=== PATIENT | female | born 1965 | race Caucasian/White ===

== ENCOUNTER 2018-05-05 06:13 | Day surgery (SDC) | payer OTHER, SELFPAY ==
[2018-05-05 06:28] VITALS: BP 135/95; PULSE 68; RESP 18; TEMP 37.1; O2SAT 100
[2018-05-05] MEDS: Lactated Ringers 1,000 ML 80 ML IV (06:47)
--- NOTE | 2018-05-05 07:28 | W.PM.DSUDISC ---
Discharge Plan Disposition Patient Disposition: HOME Condition: Good Discharge Details Reason For Visit: (L) LATERAL EPICONDYLITIS Attending Provider: Tarik Chacon Primary Care Provider: Kaushik Sosa Home Meds and New Rx's Prescriptions: New acetaminophen 500 mg capsule 1,000 mg PO Q8H PRN (Reason: pain) Qty: 90 RF: 0 Continue omeprazole 40 MG capsule,delayed release(DR/EC) 40 mg PO DAILY RF: 0 medroxyprogesterone 150 MG/ML suspension 150 mg IM . Q 3 MOS RF: 0 ferrous sulfate 325 MG tablet 325 mg PO DAILY RF: 0 ibuprofen 800 mg Tablet 800 mg PO TID PRNQty: 60 RF: 3 Discontinued acetaminophen [Tylenol] 325 MG tablet 650 mg PRN PRNRF: 0 Discharge Instructions Additional Instructions: Activity: You may use your fingers for light activity. You should stay in the sling for comfort, resting the wrist and elbow. You may take the sling off as long as the elbow and wrist are supported. No gripping or grasping. No lifting more than 3 pounds. Dressings: You may remove the surgical dressing after 3 days. You may apply a light gauze wrap or band-aid to the wound. The wound is closed with skin glue and buried sutures. It may get wet after 3 days. Follow-up: 10 days Equipment/Supplies: Sling Activity:: Elevate Remove Dressings/Wound Care:: 72 hours Shower/Bathe:: 72 hours Discharge Orders Discharge Orders: Discharge Order (Routine); Ordered 05/05/18 Ordered By: Tarik Chacon DS: Diagnosis Discharge Diagnosis (1) Left lateral epicondylitis: Status: Acute
[2018-05-05] MEDS: Bupivacaine 0.25% Pres-Free 30 ML VIAL (08:01)
[2018-05-05] MEDS: Bupivacaine LIPOSOME/PF 133 MG/10 ML VIAL IJ (08:06)
[2018-05-05 08:45] VITALS: BP 144/97; PULSE 64; RESP 16; O2SAT 99
--- NOTE | 2018-05-06 21:16 | ROE_ITS ---
Date of service: 05/05/18 Time of Service: 08:30 Operative Note DATE OF PROCEDURE: 05/05/18 PRE-OP DIAGNOSIS: Left lateral epicondylitis POST-OP DIAGNOSIS: same PROCEDURE: Lateral epicondylitis debridement, left elbow SURGEON: Tarik Chacon MORTGAGE LOAN PROCESSING CLERK: Marlene Mcclain ANESTHESIA: MAC ESTIMATED BLOOD LOSS: 5 PATHOLOGY: none sent TOURNIQUET TIME: 20 COMPLICATIONS: None Patient was transported to: same day Patient's condition: stable Indications: Gypsy is a 52-year-old who has had persistent symptoms of lateral epicondylitis left elbow. She has exhausted nonoperative treatments. She has had symptoms for nearly a year. Given the failure of these modalities I did offer operative intervention. I reviewed the risk of the procedure to include bleeding, infection, pain, stiffness, continued symptoms, ankle instability, damage to nerves and vessels. Despite these risks, she elected to proceed. Procedure Description: Gypsy was greeted in the preoperative holding area. Her identity was confirmed the correct site was identified and marked. She is taken back to the operating room and placed in supine position. All bony problems well padded. Nonsterile tourniquet was placed high on the left arm. Left arm was prepped with ChloraPrep and draped in standard fashion. Prophylactic antibiotics in the form of cefazolin were given. A timeout was performed for safe surgery. Approximately 5 cm incision was made over the lateral left elbow. This was made just anterior to the lateral condyle and the course of the extensor carpi radialis longus. The arm was exsanguinated prior to proceeding with the tourniquet inflated to 250 mmHg stayed for 20 minutes. Skin incision was taken down to the deep fascia. Blunt dissection was used to clear off the deep fascia exposing the border of the extensor carpi radialis longus tendon and muscle belly. The tendon was incised up onto the lateral condyle and the distal , lateral humerus. The tendon and the extensor carpi ulnaris longus, extensor aponeurosis, was opened exposing the underlying extensor carpi radialis brevis. He was here that the degenerative and fiber angioblastic tissue is seen. All diseased tissue was removed using the Nirschl test as well as a running drawer. With the combination of running jewelry and sharp dissection all diseased tissue was removed. The wound was then thoroughly irrigated. There is no other diseased tissue appreciated. The elbow was checked for appropriate stability and no joint involvement. The interval of the extensor carpi ulnaris longus was then closed with a 2-0 Vicryl. The tourniquet was released after 20 minutes to ensure adequate hemostasis. Deep tissues were closed with a 3-0 Vicryl. The skin was closed with a running 4-0 Monocryl. The skin was reinforced with skin glue and dressed with 4 x 4's, Kerlix, and Gianni wrap. She is placed into a sling. She tolerated procedure well without any noted complications.
== END 2018-05-05 09:10 | disposition home or self-care (01) ==
PROVIDERS: PCP Family Medicine; Visit Provider Student in an Organized Health Care Education/Training Program
PROC: (CPT 24358; principal; 2018-05-05 07:30)
DX: M77.12 Lateral epicondylitis, left elbow (principal); K21.9 Gastro-esophageal reflux disease without esophagitis
CPT/HCPCS: 24358; J0690; J1100; J1885; J2405; L3650

== ENCOUNTER 2019-04-18 08:06 | Day surgery (SDC) | payer OTHER, SELFPAY ==
[2019-04-18] VITALS (7 sets, daily range): BP systolic 100–159; BP diastolic 66–96; PULSE 60–75; RESP 11–16; TEMP 36.2–36.6; O2SAT 97–100
[2019-04-18] MEDS: Lactated Ringers 1,000 ML 80 ML IV (08:38)
[2019-04-18] MEDS: ceFAZolin 2 GM/50 ML BAG IVPB (09:32)
--- NOTE | 2019-04-18 10:39 | W.PM.DSUDISC ---
Discharge Plan Disposition Patient Disposition: HOME Condition: Good Discharge Details Reason For Visit: Left Cubital Tunnel Syndrome Attending Provider: Tarik Chacon Primary Care Provider: Kaushik Sosa Oil Trough Meds and New Rx's Prescriptions: New hydrocodone-acetaminophen 5-325 mg tablet 1 tab PO Q4H PRN (Reason: pain) Qty: 14 RF: 0 Continued omeprazole 40 MG capsule,delayed release(DR/EC) 40 mg PO DAILY RF: 0 ibuprofen 800 mg tablet 800 mg PO TID PRN (Reason: pain) Qty: 60 RF: 3 Changed acetaminophen 500 mg capsule 500 mg PO Q6H PRN PRN (Reason: pain) Qty: 60 RF: 3 Discharge Instructions Additional Instructions: Activity: You should stay in the sling for the first 2 weeks. You may come out of the sling for gentle motion and hygiene but should largely remain in the sling to allow the incision site to heal. Gentle motion of the elbow, hand, wrist, and fingers is okay and encouraged after the first few days, but no repetitive activites nor heavy lifting. You may apply ice. Medications: - You should take Tylenol and Ibuprofen around the clock. - You have been prescribed Hydrocodone for breakthrough pain. Dressings: - The initial surgical dressing should stay in place for 3 days. It may then be removed and kept clean and dry. You should cover with a light gauze dressing. - You may shower after 3 days and get the wound wet. Follow-up: 10 days Referrals: Tarik Chacon MD [ [facility] STAFF PHYSICIAN] - Equipment/Supplies: Sling Activity:: Activity as Tolerated Remove Dressings/Wound Care:: 72 hours Shower/Bathe:: 72 hours Diet:: As Tolerated Discharge Orders Discharge Orders: Discharge Order (Routine); Ordered 04/18/19 Ordered By: Tarik Chacon DS: Diagnosis Discharge Diagnosis (1) Ulnar neuropathy at elbow of left upper extremity: Status: Acute
--- NOTE | 2019-04-18 13:28 | W.PM.OP ---
Date of service: 04/18/19 Time of Service: 11:29 Operative Note DATE OF PROCEDURE: 04/18/19 PRE-OP DIAGNOSIS: Left Cubital Tunnel Syndrome POST-OP DIAGNOSIS: same PROCEDURE: Left Cubital Tunnel Decompression SURGEON: Tarik Chacon INTERNET MERCHANT: Marlene Mcclain ANESTHESIA: GETA ESTIMATED BLOOD LOSS: 0 PATHOLOGY: none sent TOURNIQUET TIME: 14 COMPLICATIONS: None Patient was transported to: PACU Patient's condition: stable Indications: Jessy is a 53-year-old female who has had symptoms of cubital tunnel syndrome. Nonoperative treatment options had been trialed. Nerve conduction studies identified the cubital tunnel as the point of compression. Given failure of nonoperative treatments and persistent symptoms, I offered operative intervention. I reviewed the technical details of a cubital tunnel decompression with possible anterior subcutaneous transposition. I reviewed the risk of the procedure to include bleeding, infection, pain, stiffness, tendon instability, damage to the superficial radial nerve, and complete release. Despite these risks, the patient elected to proceed. Findings: There was a tightened cubital tunnel. The majority of the compression seem to be at Edwards's ligament. The ulnar nerve was release from the first motor branch distally through the [place] proximally. Procedure Description: Jessy was greeted in the preoperative holding area. Name and surgical site were confirmed. The history and physical was completed. The consent was reviewed the patient and signed. She was taken back to the operating room. The patient was placed in the supine positioned and a general anesthetic was administered. The left was then prepped with ChloraPrep and draped in a standard fashion after a nonsterile tourniquet was placed high up into the axilla of the arm. Prophylactic antibiotics in the form of cefazolin were administered. A timeout was performed for safe surgery. The surgical site was drawn on the skin as was the lateral epicondyle borders. The planned surgical field was anesthetized with 0.25% bupivacaine with epinephrine. The limb was exsanguinated and the tourniquet was inflated where it stayed for 14 minutes. A 6 cm incision was made curvilinearly around the medial elbow. The skin was incised only. The deep tissue subcutaneous fat was dissected with a tenotomy scissors trying to protect any branches of the medial antebrachial cutaneous nerve. Any branches that were identified were retracted out of the way. The ulnar nerve was palpated and identified. A small window into the cubital tunnel was created and the nerve is able to be palpated with the [place]. A Metzenbaum scissor was then used to open up the she is starting with the Edwards's ligament. I then worked distal over the ulnar nerve releasing any constraints against the nerve all the way to the fascia of the FCU muscle belly. This muscle belly was bluntly all the way down to the first motor branch of the ulnar nerve. Likewise starting there at the lateral condyle proceeded working proximally to release any constraints over the ulnar nerve. This was taken all the way to the arc[place] of [place]. The medial intermuscular septum was also palpated in any sharp edges against the ulnar nerve were resected. After fully releasing the nerve it was inspected visually. I was also able to palpate the nerve fully and reach one finger up into the proximal distal aspects to make sure there is no constraints against the nerve. A freer elevator was also used to slide easily against the ulnar nerve without any points of constriction. The arm was then taken through range of motion. The ulnar nerve did not sublux/dislocate out of its groove behind the lateral epicondyle. Therefore, no transposition was performed. The tourniquet was then deflated. Any areas of bleeding were cauterized with bipolar electrocautery. The wound was thoroughly irrigated. The deep tissue was closed with a 3-0 Vicryl. The skin was closed with a 4-0 nylon. The wound was dressed with Xeroform, 4 x 4's, ABD, Kerlix and an Gianni wrap. She was placed into a sling. The patient was transferred back to same day surgery area in stable condition.
== END 2019-04-18 12:20 | disposition home or self-care (01) ==
PROVIDERS: PCP Family Medicine; Visit Provider Student in an Organized Health Care Education/Training Program
PROC: (CPT 64718; principal; 2019-04-18 10:30)
DX: G56.22 Lesion of ulnar nerve, left upper limb (principal)
CPT/HCPCS: 64718; 81025; J0690; J1100; J2405; L3650

== ENCOUNTER 2019-12-15 09:02 | Outpatient (CLI) | payer OTHER, SELFPAY ==
--- NOTE | 2019-12-15 08:45 | DI.RAD_ITS ---
EXAM: XR ELBOW LT COMPLETE CLINICAL HISTORY: left elbow pain TECHNIQUE: COMPARISON: LEFT ELBOW COMPLETE from 05/02/2017 FINDINGS: Three views were obtained. There is no evidence of an elbow joint effusion or hemarthrosis. No bony abnormality is seen. IMPRESSION:
== END 2019-12-15 09:22 ==
PROVIDERS: PCP Family Medicine; Visit Provider Physician Assistant Surgical
DX: M25.522 Pain in left elbow (principal)
CPT/HCPCS: 73080

== ENCOUNTER 2020-03-09 12:24 | Emergency (ER) | payer OTHER, SELFPAY ==
[2020-03-09 12:31] VITALS: BP 155/90; PULSE 90; RESP 16; TEMP 36.8; O2SAT 97
--- NOTE | 2020-03-09 13:04 | W.ED.GENAD ---
Discharge Plan Disposition Patient Disposition: HOME Condition: Stable Discharge Details Chief Complaint: Nk/Back Pain Clinical Impression: Lumbar strain Primary Care Provider: Kaushik Sosa ED Provider: Caity Chavez Home Meds and New Rx's Prescriptions: New cyclobenzaprine 10 mg tablet 10 mg PO TID PRN (Reason: muscle spasm) Qty: 10 RF: 0 Discharge Instructions Instructions: Low Back Strain (ED) Additional Instructions: Follow up with primary care provider in 3-5 days. Return to ED sooner if any worsening or concerns. Increase oral fluids. Please take Tylenol or Ibuprofen with food every 4-6 hours as needed for pain and swelling. You may also take lidocaine patches and place him once a day which he can obtain [id number]. Take prescription medications as directed. 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 She does work at the rehab across the street. She reports spasm type pain and does have some left paraspinous tenderness noted at the approximately L5 dill 4 area. She reports it mild in nature. She denies any loss of bowel or bladder control, denies any radiation into her buttocks or in her lower extremities no weakness tingling. Upon initial exam there is no midline CT or L-spine tenderness. Negative straight leg test bilaterally. No history of back injuries or back surgeries At this time I do not feel that x-rays or imaging is necessary since patient did not fall down. No midline spine tenderness. Lidocaine patch and Tylenol 500 mg ordered in department. Will prescribe patient Flexeril discussed use, verbalized understanding discussed red flags and strict return instructions such as loss of bowel or bladder control any worsening pain or tenderness, verbalized understanding. HPI General Mode of arrival: ambulatory. Date/Time Provider Initiated Documentation: 03/09/20 13:03. Limitations to Documentation: no limitations. Information obtained by: patient. 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 She does work at the rehab across the street. She reports spasm type pain and does have some left paraspinous tenderness noted at the approximately L5 dill 4 area. She reports it mild in nature. She denies any loss of bowel or bladder control, denies any radiation into her buttocks or in her lower extremities no weakness tingling. Upon initial exam there is no midline CT or L-spine tenderness. Negative straight leg test bilaterally. No history of back injuries or back surgeries. Related Data Home Medications Medication Instructions Recorded Confirmed cyclobenzaprine 10 mg PO TID PRN #10 tab 03/09/20 Previous Rx's Medication Instructions Recorded cyclobenzaprine 10 mg PO TID PRN #10 tab 03/09/20 Allergies Allergy/AdvReac Type Severity Reaction Status Date / Time Penicillins Allergy Anaphylaxsi Unverified 03/09/20 12:34 s sulfamethoxazole Allergy FACIAL Verified 03/09/20 12:34 [From Bactrim] SWELLING, ERYTHEMA trimethoprim [From Bactrim] Allergy Anaphylaxsi Verified 03/09/20 12:34 s General Stated Complaint: Nk/Back Pain ITALIA: 4 Review of Systems Narrative: Constitutional: Negative for weight loss, alert and oriented, well groomed, normal body habitus, appears comfortable. HEENT: Denies trauma, headaches, blurry vision, nasal discharge, sore throat, trouble swallowing. Chest: Denies chest pain, palpitations, irregular rhythm, hypertension. Respiratory: Denies Shortness of breath, cough, hemoptysis. GI: Denies abdominal pain, nausea, vomiting, diarrhea, constipation. : Denies dysuria, hematuria, flank pain, rectal bleeding. Neuro: Denies dizziness, blurry vision, weakness, syncope, headache or facial numbness. Hematologic: Denies easy bruising, intolerance to heat or cold, hair loss. FOR[facility]LY [facility], [facility] Medical History History of left lateral epicondylitis (Acute) left 2018 Obstruction of right fallopian tube (Acute) Peroneal tendonitis of left lower leg (Acute) Likely peroneal brevis Surgical History H/O arthroscopy of knee (Resolved) Right knee 2016 Left knee 1998 Left lateral epicondylitis (Acute) Left lateral epicondylitis debridement DOS: 05/05/18 Dr. Prohaska Ulnar neuropathy at elbow of left upper extremity (Acute 04/18/19) S/p left cubital tunnel decompression Social History Smoking/Tobacco Use Status: Former Tobacco Use Alcohol Intake: current Alcohol Intake frequency: 0-2 drinks per day Alcohol type: beer Drug use: Never Substance use type: does not use Current gender identity: female Do you feel safe at home: Yes Do you feel safe in your relationship?: Yes Exam Narrative Exam Narrative: Constitutional: Alert and oriented x3. Appears stated age. Normal body habitus. Head: Normocephalic, no trauma. Eyes: Pupils PERRLA, Red reflex noted, EOM's intact. Eyelids symmetrical without lesions, discharge, or swelling. ENT: Bilateral TM's WNL, External ear normal to inspection, no mastoid TTP, swelling, or erythema, Nasal turbinates WNL, no nasal discharge. Normal dentition, Posterior pharynx WNL, no exudate. Chest: RRR, Normal S1, S2, distal pulses intact. Resp: Lungs clear to auscultation bilaterally, no wheezes, rales, or rhonchi. Musculoskeletal: Normal gait, 5/5 strength to all four extremities. Intact dorsal pedal flexion, negative straight leg test bilaterally. No midline L-spine tenderness. There is positive left-sided paraspinous tenderness with palpation. Patient is wearing a brace noted to her left elbow and left ankle. Skin: No suspicious rashes or lesions. Capillary refill less than 2 sec. Neurologic: Cranial nerves II-XII intact. Alert and oriented x 3. DTR's intact. Hematologic/Lymphatic: No ecchymosis, no lymphadenopathy. Course Vital Signs Vital signs: Vital Signs Temperature 36.8 C 03/09/20 12:31 Pulse 90 03/09/20 12:31 Respiratory Rate 16 03/09/20 12:31 Blood Pressure 155/90 H 03/09/20 12:31 Pulse Oximetry 97 03/09/20 12:31 Temperature 36.8 C 03/09/20 12:31 Pulse 90 03/09/20 12:31 Respiratory Rate 16 03/09/20 12:31 Respiratory Effort Non-Labored 03/09/20 12:34 Blood Pressure 155/90 H 03/09/20 12:31 Blood Pressure Position Sitting 03/09/20 12:31 Pulse Oximetry 97 03/09/20 12:31 Oxygen Delivery Method Room Air 03/09/20 12:31 Oxygen Flow Rate 0 03/09/20 12:31 Pain Level 8 03/09/20 12:55
[2020-03-09] MEDS: Lidocaine 5% Patch 1 PATCH TP (13:12)
[2020-03-09] MEDS: Acetaminophen 500 MG TAB PO (13:12)
== END 2020-03-09 13:27 | disposition home or self-care (01) ==
PROVIDERS: Emergency Provider Registered Nurse Emergency; PCP Family Medicine
DX: S39.012A Strain of muscle, fascia and tendon of lower back, initial encounter (principal); X50.9XXA Other and unspecified overexertion or strenuous movements or postures, initial encounter; Y99.0 Civilian activity done for income or pay
CPT/HCPCS: 99283

== ENCOUNTER → 2022-03-06 01:26 | Outpatient (CLI) | payer OTHER, SELFPAY ==
--- OUTSIDE RECORDS SUMMARY | 2022-03-06 01:27 | XMS_ITS | Encounter Summary ---
:1965 Author Organization [facility] [place] [address] Care Team Providers Name Role Phone Hannah Sosa MD Primary Care Provider [phone] Encounter Details Date Type Department Care Team Description 08/14/2020 Office Visit Occupational Therapy at [facility], Pain in left elbow [address] [facility] [address] [place] [address] PHYSICAL MEDICINE & [place] [address] Social History Tobacco Use Types Packs/Day Years Used Date Former Smoker Cigarettes 0.5 8 Quit: 08/31/19 09 Smokeless Tobacco: Never Used Alcohol Use Standard Drinks/Week Comments Yes 0 (1 standard drink = 0.6 oz pure alcoho l) Sex Assigned at Date Recorded Not on file documented as of this encounter Miscellaneous Notes Initial Evaluation - [facility] - 08/14/2020 12:00 PM EST Please refer to scan documents for a copy of the functional capacity evaluation report. documented in this encounter Plan of Treatment Not on filedocumented as of this encounter Visit Diagnoses Diagnosis Pain in left elbow Pain in joint, upper arm documented in this encounter Care Teams Cosmetic Sales Relationship Specialty Start Date End Date Hannah Sosa MD PCP - General Family Medicine 12/15/19 documented as of this encounter
--- OUTSIDE RECORDS SUMMARY | 2022-03-06 01:28 | XMS_ITS | Clinical Summary ---
:[address] [facility] Address [address] [place] [address] Care Team Providers Name Role Phone Unknown, Provider Primary Care Provider Social History Tobacco Use Types Packs/Day Years Used Date Never Assessed Sex Assigned at Date Recorded Not on file Plan of Treatment Health Maintenance Due Date Last Done Comments Hepatitis C Screen 1965 COVID-19 Vaccine (1) 1971 Care Teams Lens Grinder Relationship Specialty Start Date End Date Unknown, Provider, PCP - General 11/05/10
--- OUTSIDE RECORDS SUMMARY | 2022-03-06 01:28 | XMS_ITS | Encounter Summary ---
:1965 Author Organization [facility] [address] Care Team Providers Name Role Phone Abe Plummer MD Primary Care Provider Encounter Details Date Type Department Care Team Description 10/07/2011 External Results XRay at [facility] Jd Steve MD [address] [place] [address] [place] [address] [place] [address] [phone] (Wo rk) Social History Tobacco Use Types Packs/Day Years Used Date Former Smoker Cigarettes 0.5 8 Quit: 08/31/19 09 Smokeless Tobacco: Never Used Alcohol Use Standard Drinks/Week Comments Yes 0 (1 standard drink = 0.6 oz pure alcoho l) Sex Assigned at Date Recorded Not on file documented as of this encounter Plan of Treatment Not on filedocumented as of this encounter Procedures Procedure Name Priority Date/Time Associated Diagnosis Comme nts MRI/MRA SCAN Routine 09/30/2011 documented in this encounter Results Scan Doc: MRI/MRA (09/30/2011) Anatomical Region Laterality Modality Other Narrative This result has an attachment that is no t available. Jd Steve MD MEDIA MGR SCAN EXT ORDR/RSLT documented in this encounter Visit Diagnoses Not on filedocumented in this encounter Care Teams [employer] Paralegal Relationship Specialty Start Date End Date Abe Plummer MD PCP - General 10/07/11 12/14/19 documented as of this encounter
--- OUTSIDE RECORDS SUMMARY | 2022-03-06 01:28 | XMS_ITS | Encounter Summary ---
:1965 Author Organization [facility] [place] [address] Care Team Providers Name Role Phone Hai Voss MD Primary Care Provider Encounter Details Date Type Department Care Team Description 07/18/2010 Office Visit [facility] Shamar Sahni MD [address] [place] [address] CARDIOLOGY DEPT. [phone] [place], [place] [address] (Wo rk) Social History Tobacco Use Types Packs/Day Years Used Date Never Assessed Sex Assigned at Date Recorded Not on file documented as of this encounter Plan of Treatment Not on filedocumented as of this encounter Visit Diagnoses Not on filedocumented in this encounter Care Teams Manager Of Product Relationship Specialty Start Date End Date Hai Voss MD PCP - General 07/14/10 10/06/[address] [place] [phone] documented as of this encounter
--- OUTSIDE RECORDS SUMMARY | 2022-03-06 01:28 | XMS_ITS | Encounter Summary ---
:1965 Author Organization [facility] [address] Care Team Providers Name Role Phone Abe Plummer MD Primary Care Provider Reason for Referral Occupational Therapy (Routine) - Closed Specialty Diagnoses / Procedures Referred By Referred To Contact Contact Occupational Therapy Diagnoses Sprain of left acromioclavicular joint Mechanical low back pain [facility] [place] [phone] Phone: Referral ID Status Reason Start Date Expiration Date Visits Requ ested Visits Authorized [id number] Closed Other 10/07/2011 04/04/2012 1 1 hysical Therapy (Routine) - Closed Specialty Diagnoses / Procedures Referred By Contact Refer red To Contact Physical Therapy Diagnoses Sprain of left acromioclavicular joint Mechanical low back pain [facility] [place] [phone] Phone: Referral ID Status Reason Start Date Expiration Date Visits V isits Requested Authorized [id number] Closed Evaluate and 10/07/2011 04/04/2012 1 1 Treat Reason for Visit Reason Comments Back Pain left shoulder Encounter Details Date Type Department Care Team Description 10/07/2011 Office Visit [facility] Mechanic al low back pain (Primary Dx); Vijay COLEMAN Sprain of left acromioclavicular joint [facility] [address] [place], [facility] [address] [place] [phone] Social History Tobacco Use Types Packs/Day Years Used Date Former Smoker Cigarettes 0.5 8 Quit: 08/31/19 09 Smokeless Tobacco: Never Used Alcohol Use Standard Drinks/Week Comments Yes 0 (1 standard drink = 0.6 oz pure alcoho l) Sex Assigned at Date Recorded Not on file documented as of this encounter Last Filed Vital Signs Vital Sign Reading Time Taken Comments Blood Pressure - - Pulse - - Temperature - - Respiratory Rate - - Oxygen Saturation - - Inhaled Oxygen Concentration - - Weight 67.6 kg (149 lb) 10/07/2011 2:22 PM EST Height 172.7 cm (5' 8) 10/07/2011 2:22 PM EST Body Mass Index 22.66 10/07/2011 2:22 PM EST documented in this encounter Progress Notes [facility] Ortega PA - 10/07/2011 3:01 PM EST Subjective: Patient ID: Jessy Long is a 46 y.o. female. Back Pain This is a new problem. The current episode started more than 1 month ago. The problem has been gradually improving since onset. The pain is present in the lumbar spine. The pain radiates to the left thigh and right thigh. The pain is at a severity of 5/10. The symptoms are aggravated by lying down, position, sitting and standing. Associated symptoms include leg pain. Pertinent negatives include no bladder incontinence, bowel incontinence, fever, numbness, tingling, weakness or weight loss. She has tried home exercises, NSAIDs and muscle relaxant for the symptoms. The treatment provided moderate relief. Review of Systems Constitutional: Negative for fever, chills and weight loss. Gastrointestinal: Negative. Negative for bowel incontinence. Genitourinary: Negative. Negative for bladder incontinence. Musculoskeletal: Positive for back pain. Neurological: Negative for tingling, weakness and numbness. Objective: Physical Exam Back Exam Sensation: Normal. Gait: Normal. Tenderness The patient is experiencing tenderness in the L4-S1 and both SI joints and the left buttock, and also the left A/C joint. Range of Motion Flexion: 80 Extension: 40 Lateral Bend Left: Lateral Bend Right: Rotation Right: Rotation Left: SLR Right: Negative Left: Negative Muscle Strength Normal Tests Toe Walk: Normal Heel Walk: Normal Reflexes Patellar: 2/4 Achilles: 2/4 Biceps: 2/4 Triceps: 2/4 Babinski: Normal Comments: Alignment: no scoliosis. Gait: normal tandem walk. Lumbar ROM: there was no real increase in pain. Shoulder ROM: abduction to about 100 degrees with pain at the A/C joint and IR to about T8 with no pain. Cervical ROM is full and pain-free. SLR: no pain. BG's is negative. Hip ROM is full and pain-free. No clonus and negative Mckay's. Distal pulses are intact. Neurologic Exam Assessment and Plan: Imaging: There are no current images for the lumbar spine but there was an MRI of the left shoulder which appears to be a fairly normal shoulder MRI based on the report. Assessment: 1. Left shoulder pain that appears to be related to an A/C joint sprain. 2. Mechanical low back pain. In Summary: This patient is a 46-year-old female that presents to the spine center for a worker's compensation injury that occurred when she slipped and fell on the ice on 08/01/2011, noting that she landed on her left knee and left arm. Since that time she's had a combination of low back pain and left shoulder pain symptoms. When her injury initially occurred she did have some neck pain along with left arm pain symptoms at this point she is not describing the neck pain or arm symptoms as physical therapy did help her with those symptoms. She also feels that her shoulder pain is improving as well. She locates her back pain along the belt line distribution with some pain it can go into her buttock and down the posterior thigh to the level of the knees. Her shoulder pain is located mostly over the anterior portion of the shoulder at about the area of the A/C joint. She feels that her back pain andshoulder pain are equal and she rates her pain between a 3-7/10. Her low back pain is worse with prolonged sitting or certain prolonged positions or activities and feels better changing positions. Her shoulder pain is worse with left shoulder movements specifically lifting anything above her shoulder height. She does not describe any numbness or weakness currently and there is no bowel or bladder incontinence or myelopathic symptoms. She has done some physical therapy which has included an attempt of Roshan exercises although her shoulder pain it limits what she can do for her low back, she is also done NSAIDs and muscle relaxers. Her physical exam findings reveals a she's a fairly fit and healthy appearing 46-year-old female with tenderness over the left A/C joint and tenderness from L4-S1 andover both SI joints and the left buttock. She has relatively full lumbar range of motion without reproduction of pain she does have limited left shoulder range of motion with abduction to about 100 degrees which reproduces shoulder pain symptoms. Her cervical range of motion is full and pain-free. Neurologically she was intact to sensation, reflexes and strength. Her rotator cuff strength is 5/5. Shehad negative straight leg raise test and negative Bg's test. MRI of the shoulder reveals a fairlynormal shoulder MRI. This leads me to feel that the patient is dealing with a left shoulder pain that appears to be related to an A/C joint sprain and she is also dealing with a mechanical low back pain. Plan: I have discussed at length the diagnosis of mechanical low back pain, and the fact that it is often difficult to know what is the actual pain generator. I have told the patient that most back pain will resolve on it's own from a period of 3 months to 1 year, whether we treat it or not. Occasionally back pain can become chronic. These symptoms are hurtful and not harmful. I have discussed that the best treatment for low back pain is to stay active with aerobic type activities such as walking, swimming and biking. However, I have also discussed other treatment options, including: Physical therapy with a Roshan based approach, NSAIDs, injections. At this point I feel the best option would be to do physical therapy for the low back, but I do feel it would be reasonable to order plain films ofthe lumbar spine to rule out any specific pathology. As for the shoulder pain, I feel that further physical therapy focusing on a range of motion program will likely get her shoulder symptoms to feel better. Potentially could consider referring her to one of my shoulder specialists although at this time physical therapy would be the most recommended option. She can certainly use some [id number] to see if she can get some improvement in her symptoms. After our discussion and answering the patients questions, we have come to an aggreement in the below stated plan: 1) I did order plain films of the lumbar spine and will mail the results to the patient at a later date. 2) I have written a prescription for physical therapy to treat her low back pain with a mechanical diagnosis and treatment approach using Roshan concepts and to treat the left shoulder with range of motion and consideration of scapular stabilization and rotator cuff strength. 3) I will followup with the patient in about 6-8 weeks with a work readiness assessment scheduled prior to that visit. documented in this encounter Plan of Treatment Scheduled Referrals Name Type Priority Associated Diagnoses Order S chedule REFERRAL TO PHYSICAL Outpatient Routine Sprain of left Order ed: THERAPY Referral acromioclavicula r joint 10/07/2011 Mechanical low back pain REFERRAL TO Outpatient Routine Sprain of left Ordered: OCCUPATIONAL THERAPY Referral acromioclav icular joint 10/07/2011 Mechanical low back pain documented as of this encounter Results XR lumbar spine 2 or 3 views (10/07/2011 3:54 PM EST) Anatomical Region Laterality Modality L-spine N/A Radiographic Imaging Specimen (Source) Anatomical Collection Method Collection Time Re ceived Time Location / / Volume Laterality 10/07/2011 3:54 PM EST Impressions 10/08/2011 8:33 AM EST IMPRESSION: ?? No subluxation. No instability. L5-S1 facet arthropathy. Narrative 10/08/2011 8:33 AM EST LUMBAR SPINE, AP AND FLEXION/EXTENSION LATERAL IMAGES: HISTORY: ??pain COMPARISON STUDY: ??None. FINDINGS: ??There are five idw-zqz-mnopg ng lumbar-type vertebral bodies. No spondylolisthesis or subluxation. Flexio n/extension images reveal no instability. There is L5-S1 facet arthro eric. The pedicles are intact. Procedure Note Romy Adkins MD - 10/08/2011Formatt ing of this note might be different from the original. LUMBAR SPINE, AP AND FLEXION/EXTENSION L ATERAL IMAGES: HISTORY: pain COMPARISON STUDY: None. FINDINGS: There are five koo-gwo-hukldso lumbar-type vertebral bodies. No spondylolisthesis or subluxation. Flexio n/extension images reveal no instability. There is L5-S1 facet arthro eric. The pedicles are intact. IMPRESSION IMPRESSION: No subluxation. No instability. L5-S1 facet arthropathy. Don Carmichael MD IMG DX ORDERABLES documented in this encounter Visit Diagnoses Diagnosis Mechanical low back pain - Primary Lumbago Sprain of left acromioclavicular joint Acromioclavicular (joint) (ligament) spr ain Mechanical low back pain Lumbago documented in this encounter Care Teams Warp Tying Machine Tender Relationship Specialty Start Date End Date Abe Plummer MD PCP - General 10/07/11 12/14/19 documented as of this encounter
--- OUTSIDE RECORDS SUMMARY | 2022-03-06 01:28 | XMS_ITS | Encounter Summary ---
:1965 Author Organization [facility] [place] [address] Care Team Providers Name Role Phone Abe Plummer MD Primary Care Provider Encounter Details Date Type Department Care Team Description 10/07/2011 Hospital Encounter XRay at [facility] Mechanical low back [address] [place] [address] [place] [phone] Social History Tobacco Use Types Packs/Day Years Used Date Former Smoker Cigarettes 0.5 8 Quit: 08/31/19 09 Smokeless Tobacco: Never Used Alcohol Use Standard Drinks/Week Comments Yes 0 (1 standard drink = 0.6 oz pure alcoho l) Sex Assigned at Date Recorded Not on file documented as of this encounter Medications at Time of Discharge Medication Sig Dispensed Refills Start Date End Date omeprazole (PRILOSEC) 40 Take 40 mg by mouth 0 mg capsuleIndications: daily. Indications: gastroesophageal reflux Gastroesophageal Reflux disease multivitamin (THERAGRAN) Take 1 tablet by mouth 0 tablet daily. documented as of this encounter Plan of Treatment Not on filedocumented as of this encounter Procedures Procedure Name Priority Date/Time Associated Diagnosis Comme nts XR LUMBAR SPINE 2 Routine 10/07/2011 3:54 PM Mechanical low ba ck Results for this OR 3 VIEWS EST pain procedure are i n the results section. documented in this encounter Results XR lumbar spine 2 [...] COMPARISON STUDY: ??None. FINDINGS: ??There are five kck-arw-gjhvf ng lumbar-type vertebral bodies. No spondylolisthesis or subluxation. Flexio n/extension images reveal no instability. There is L5-S1 facet arthro eric. The pedicles are intact. Procedure Note Romy Adkins MD - 10/08/2011Formatt ing of this note might be different from the original. LUMBAR SPINE, AP AND FLEXION/EXTENSION L ATERAL IMAGES: HISTORY: pain COMPARISON STUDY: None. FINDINGS: There are five dev-dyp-wzikbar lumbar-type vertebral bodies. No spondylolisthesis or subluxation. Flexio n/extension images reveal no instability. There is L5-S1 facet arthro eric. The pedicles are intact. IMPRESSION IMPRESSION: No subluxation. No instability. L5-S1 facet arthropathy. Don Carmichael MD IMG DX ORDERABLES documented in this encounter Visit Diagnoses Diagnosis Mechanical low back pain Lumbago documented in this encounter Care Teams Vinegar Maker Relationship Specialty Start Date End Date Abe Plummer MD PCP - General 10/07/11 12/14/19 documented as of this encounter
--- OUTSIDE RECORDS SUMMARY | 2022-03-06 01:28 | XMS_ITS | Encounter Summary ---
:1965 Author Organization [facility] Address [address] [place] [address] Care Team Providers Name Role Phone Unknown, Provider Primary Care Provider Encounter Details Date Type Department Care Team Description 11/20/2021 Lab Requisition [facility] Outr Resulting Lab, Pathology & Laboratory Provider [facility] [address] [place] [address] Social History Tobacco Use Types Packs/Day Years Used Date Never Assessed Sex Assigned at Date Recorded Not on file documented as of this encounter Plan of Treatment Not on filedocumented as of this encounter Procedures Procedure Name Priority Date/Time Associated Diagnosis Comme nts MEASLES IGG AB Routine 11/20/2021 8:34 EDT Result s for this procedure are i n the results section. HEPATITIS B SURFACE Routine 11/20/2021 8:34 EDT R esults for this ANTIBODY procedure are i n the results section. documented in this encounter Results HEPATITIS B SURFACE ANTIBODY (11/20/2021 8:34 EDT) Hep B Surface Ab, >1000.0 See Note [facility] Quantitative Comment: mIU/mL [facility] Reference Range for Hep B Surface Ab, Quant: SERVICES Positive: >= 10.0 mIU/mL Negative: ??< 10.0 mIU/mL Patient is presumed to be immune to infection with Hep atitis B Virus. Hep B Surface Ab, Positive See Note [facility] Qualitative Comment: [facility] Reference Range for Hep B Surface Ab, Qual: SERVICES Unvaccinated: ??Negative Vaccinated: ??Positive Specimen Blood - Venous blood (substance) Performing Organization Address City/State/ZIP Code Phon e Number [facility] [address] [place] [address] SERVICES MEASLES IGG AB (11/20/2021 8:34 EDT) Measles IgG Ab PositiveComment: See Note [facility] Presence of LABORATORY SERVICES detectable measles virus IgG antibodies. Specimen Blood - Venous blood (substance) Performing Organization Address City/State/ZIP Code Phon e Number [facility] [address] [place] [address] SERVICES documented in this encounter Visit Diagnoses Not on filedocumented in this encounter Care Teams Suspender Maker Relationship Specialty Start Date End Date Unknown, Provider, PCP - General 11/05/10 documented as of this encounter
--- OUTSIDE RECORDS SUMMARY | 2022-03-06 01:28 | XMS_ITS | Encounter Summary ---
:1965 [place] [address] Care Team Providers Name Role Phone Hai Voss MD Primary Care Provider Encounter Details Date Type Department Care Team Description 08/19/[address] [facility] Shamar Sahni MD [address] [place] [address] CARDIOLOGY DEPT. [phone] [place], [place] [address] (Wo rk) Social History Tobacco Use Types Packs/Day Years Used Date Never Assessed Sex Assigned at Date Recorded Not on file documented as of this encounter Plan of Treatment Not on filedocumented as of this encounter Visit Diagnoses Not on filedocumented in this encounter Care Teams Repack Room Worker Relationship Specialty Start Date End Date Hai Voss MD PCP - General 07/14/10 10/06/[address] [place] [phone] documented as of this encounter
--- OUTSIDE RECORDS SUMMARY | 2022-03-06 01:28 | XMS_ITS | Encounter Summary ---
:1965 Author Organization [place] [address] Care Team Providers Name Role Phone Abe Plummer MD Primary Care Provider Reason for Visit Consultation (Routine) - Specialty Diagnoses / Procedures Referred By Contact Refer red To Contact Dermatology Diagnoses Disorder of the skin and subcutaneous tissue, unspecified Skin Lesion over left scapula Hannah Sosa Hammer, Charles J, MD Procedures Consult [address] [facility] [place] [address] [place] [address] Fax: Referral ID Status Reason Start Date Expiration Date Visits V isits Requested Authorized [id number] Consult, Test 11/23/2019 05/24/2020 6 6 & Treat PCP Updated and/or Approved Encounter Details Date Type Department Care Team Description 12/12/2019 TH Visit Dermatology at [facility] MD [facility] (TeleHealth) Serafina [address] [facility] [place] [address] [place], [place] [phone] (Wo rk) [phone] Social History Tobacco Use Types Packs/Day Years Used Date Former Smoker Cigarettes 0.5 8 Quit: 08/31/19 09 Smokeless Tobacco: Never Used Alcohol Use Standard Drinks/Week Comments Yes 0 (1 standard drink = 0.6 oz pure alcoho l) Sex Assigned at Date Recorded Not on file documented as of this encounter Progress Notes [facility]ún[facility] MD - 12/12/2019 9:00 AM EDT Problem: 1. New patient initial visit, left shoulder lesion of concern 2. telehealth telephone visit Gypsy is contacted today utilizing the telehealth telephone platform. She has noted since at least the beginning of the month a lesion on her left upper back near the shoulder that is sore, has scabbed and did not respond to liquid nitrogen therapy in Dr. Sosa's office. It has not healed the clinic dictation from that visit November 20 describes a 1/2 cm tender sore friable lesion about a centimeterin diameter which was brown in color. She also sends us photographs which seem to demonstrate a flesh toned nodule with a central punctum suggestive of a follicular cyst. Her Bertrand saw the lesionand was concerned about skin cancer prompting the visit to Dr. Sosa. Patient denies any personal orfamily history of skin cancer or melanoma. Assessment plan: Left upper back lesion 1. Patient photograph does not seem to match the description of Dr. Sosa's clinical note 2. Recommend that this be evaluated in my office will see her on Wednesday. 3. Need to rule out possibility of cutaneous malignancy. CC: Hannah Sosa MD documented in this encounter Plan of Treatment Not on filedocumented as of this encounter Visit Diagnoses Diagnosis [facility] Benign neoplasm of skin, site unspecifie d documented in this encounter Care Teams Building Code Administrator Relationship Specialty Start Date End Date Abe Plummer MD PCP - General 10/07/11 12/14/19 documented as of this encounter
--- OUTSIDE RECORDS SUMMARY | 2022-03-06 01:28 | XMS_ITS | Encounter Summary ---
:1965 Author Organization [facility] [place] [address] Care Team Providers Name Role Phone Hannah Sosa MD Primary Care Provider Reason for Visit Reason Comments Follow-up Encounter Details Date Type Department Care Team Description 12/15/2019 Office Visit Dermatology at [facility], Seborrh eic keratosis; Yarely KHOURY [facility] [address] Clint B DERMATOLOGY [place], [place] [id number] [phone] Social History Tobacco Use Types Packs/Day Years Used Date Former Smoker Cigarettes 0.5 8 Quit: 08/31/19 09 Smokeless Tobacco: Never Used Alcohol Use Standard Drinks/Week Comments Yes 0 (1 standard drink = 0.6 oz pure alcoho l) Sex Assigned at Date Recorded Not on file documented as of this encounter Progress Notes Júnior Block MD - 12/15/2019 3:30 PM EDT Problem: Left upper back/posterior shoulder lesion of concern Jessy presents today because of a lesion of concern on the left upper back near her shoulder. She was seen by Dr. Sosa and his description was of a friable dark brown lesion and then a photograph shesent us seem to suggest a flesh toned nodule with central punctum suggestive of follicular cyst. So she presents today the office that I can actually see the lesion and evaluate it more accurately. Physical examination reveals a minimally keratotic flattopped patch some 5 x 7 mm in size over the left upper back over the shoulder consistent with residual seborrheic keratosis. This represents the keratosis that did not resolve with Dr. Sosa's liquid nitrogen. There is no follicular cyst there is no punctum. There is no surrounding erythema or induration. The back otherwise appears benign. There is no sign of any tumor or neoplasm. Assessment and plan: Residual seborrheic keratosis, left lower back/posterior shoulder 1. Jessy reassured today about the benign nature of this lesion 2. LN 2 x 2 again applied to try to bring resolution of this site. 3. Return to clinic otherwise can be now just PRN. Cc: Hannah Sosa MD documented in this encounter Plan of Treatment Not on filedocumented as of this encounter Visit Diagnoses Diagnosis Seborrheic keratosis Other seborrheic keratosis [facility] Benign neoplasm of skin, site unspecifie d documented in this encounter Care Teams Sash Installer Relationship Specialty Start Date End Date Hannah Sosa MD PCP - General Family Medicine 12/15/19 documented as of this encounter
--- OUTSIDE RECORDS SUMMARY | 2022-03-06 01:28 | XMS_ITS | Encounter Summary ---
:1965 Author Organization [facility] Address [address] [place] [address] Care Team Providers Name Role Phone Unknown, Provider Primary Care Provider Encounter Details Date Type Department Care Team Description 05/21/2020 Lab Requisition [facility] Kayden Andujar Encou nter for other Pathology & SUPPLIER DIVERSITY DIRECTOR general examination Laboratory Medicine [address] [place] [address] [address] [place], [place] [id number] [place] [address] [id number] Social History Tobacco Use Types Packs/Day Years Used Date Never Assessed Sex Assigned at Date Recorded Not on file documented as of this encounter Plan of Treatment Not on filedocumented as of this encounter Procedures Procedure Name Priority Date/Time Associated Comments Diagnosis PAP TEST Today 05/21/2020 10:50 Results for this EDT procedure are i n the results section. HUMAN PAPILLOMAVIRUS Today 05/21/2020 10:50 Res ults for this (HPV) DETECTION-HIGH EDT procedu re are in RISK TYPES the results section. documented in this encounter Results HUMAN PAPILLOMAVIRUS (HPV) DETECTION-HIGH RISK TYPES (05/21/2020 10:50 EDT) Human Papillomavirus NegativeComment: No Negative [facility] MEDICAL (HPV) Detection-High E6 or E7 mRNA is CENTER LABORATOR Y Types detected from HPV SERVICES types 16,18,31,33,35,39,45 ,51,52,56,58,59,66, and 68 by county program technician mediated amplification. Specimen Pap Test - Cervix and/or Endocervix Performing Organization Address City/State/ZIP Code Phon e Number [facility] [address] [place] [address] SERVICES PAP TEST (05/21/2020 10:50 EDT) Specimens A. Cervix and/or [facility] MEDICAL Endocervix , ThinPrep CENTER Imaging System with LABORATORY Manual Evaluation SERVICES Specimen Adequacy Satisfactory for [facility] MEDICAL Evaluation - CENTER transformation zone LABORATORY component absent SERVICES General Negative for [facility] intraepithelial [place] lesion or malignancy LABORATORY SERVICES Attestation . [facility] CENTER signed by Rebecca lei, LABORATORY ESTEPHANIA Mojica( CP) SERVICES on 05/29/2020 a t 1534 Clinical History Clinical History, Signs, Sym ptoms, Chief Complaint, Pertaining to This Order: See below [facility] Last Menstral Period: 2018 CENTER Other Clinical History/Order Comments: ALL NORMAL PAPS LABORATORY SERVICES HPV The result for the Human Pap illomavirus (HPV) Detection-High Risk Types is Negative. No E6 or E7 mRNA is detected from HPV types 16,18,31,33,35,39,45,51,52,56,58,59,66, and 68 by county program technician mediated [facility] amplification.Testing was pe rformed on specimen [id number] and was resulted on 05/29/2020 1524 EDT by CRISTINA, LAB INSTRUMENT RESULTS IN [facility] SERVICES Performing Lab [facility] SERVICES Scanned Images [facility] SERVICES Specimen Pap Test - Cervix and/or Endocervix Performing Organization Address City/State/ZIP Code Phon e Number [facility] [address] [place] [address] SERVICES documented in this encounter Visit Diagnoses Diagnosis Encounter for other general examination documented in this encounter Care Teams Polymerization Helper Relationship Specialty Start Date End Date Unknown, Provider, PCP - General 11/05/10 documented as of this encounter
--- OUTSIDE RECORDS SUMMARY | 2022-03-06 01:28 | XMS_ITS | Encounter Summary ---
:1965 Author Organization [facility] Address [address] [place] [address] Care Team Providers Name Role Phone Unknown, Provider Primary Care Provider Encounter Details Date Type Department Care Team Description 04/27/2019 Results Only [facility]- Fartun Webb, QC MANAGER [phone] [place] [address] [address] [place], [place] [address] (Wo rk) Social History Tobacco Use Types Packs/Day Years Used Date Never Assessed Sex Assigned at Date Recorded Not on file documented as of this encounter Plan of Treatment Not on filedocumented as of this encounter Procedures Procedure Name Priority Date/Time Associated Diagnosis Comme nts PAP TEST- RESULT Routine 04/27/2019 0:00 EDT Resu lts for this ONLY procedure are i n the results section. documented in this encounter Results PAP TEST- RESULT ONLY (04/27/2019 0:00 EDT) Pathology Report: CYTOPATHOLOGY REPORT [facility] Reports generated via electronic interface contain lucia ginal data; SERVICES however they are lacking the format of the original re port. Caution should be taken when reading/interpreting unfo rmatted reports. Name: ? JESSY PORTER ? Accession #: ? [id number] ? : ? 1965 (Age: 6 2) ??F ?Collect Date: ? 04/27/2019 ? Location: ? [facility] ? Receive Date: ? 04/28/20 19 ? Provider: FARTUN ASHTON QC MANAGER Copy to: ? Final Report SPECIMEN ADEQUACY ? Satisfactory for Evaluation - transformation zone component absent GENERAL CATEGORIZATION ? Negative for Intraepithelial Lesion or Malignan cy ?? Last Menstrual Period: 2017 Hormonal/Contraceptive status: Depo-Provera: 11.01 Other: Additional clinical information: ALL NORMAL PAP S Specimen/Source: ??Pap Test, Cervix/Endocervix, ThinPr ep Imaging System with manual evaluation Document reviewed and electronically signed by: ? ESTEPHANIA Raymond(ASCP) ? Report ??Date: 05/03/2019 10:48 HPV with Pap Test ? Date Ordered: ? 05/03/2019 ? Status: ?? Signed Out ?Date Complete: ? 05/04/2019 ? By: ??Sy stem Interface ? Date Reported: ? 05/04/2019 ? Interpretation RESULT: Negative for HPV. No E6 or E7 mRNA is detected from HPV types 16,18,31,3 3,35, 39,45,51,52,56,58,59,66, and 68 by twine winder media ene amplification. Comments Document reviewed and electronically signed by: ? System Interface ? Report date: 05/04/2019 By the signature above, the attending physician certif ies that he/she has personally conducted a gross and/or microscopic examin ation of the described specimens and rendered or confirmed the above diagnosi s. End of Report Specimen Performing Organization Address City/State/ZIP Code Phon e Number [facility] [address] [place] [address] SERVICES documented in this encounter Visit Diagnoses Not on filedocumented in this encounter Care Teams Log Chain Feeder Relationship Specialty Start Date End Date Unknown, Provider, PCP - General 11/05/10 documented as of this encounter
--- OUTSIDE RECORDS SUMMARY | 2022-03-06 01:28 | XMS_ITS | Encounter Summary ---
:1965 Author Organization [facility] [place] [address] Care Team Providers Name Role Phone Abe Plummer MD Primary Care Provider Encounter Details Date Type Department Care Team Description 11/02/2011 Telephone [facility] Delmer Ortega PA [facility] [place] [address] [facility] [phone] [place] [id number] (Wo rk) Social History Tobacco Use Types Packs/Day Years Used Date Former Smoker Cigarettes 0.5 8 Quit: 08/31/19 09 Smokeless Tobacco: Never Used Alcohol Use Standard Drinks/Week Comments Yes 0 (1 standard drink = 0.6 oz pure alcoho l) Sex Assigned at Date Recorded Not on file documented as of this encounter Miscellaneous Notes Telephone Encounter - Radha Rodriguez - 11/02/2011 10:45 AM EDT Maury Broussard, the Nurse Case Mngr called Wednesday afternoon. She feels that the Fire Protection Engineer is not going to be happy with paying for a WRAP when the patient is working FT with no restrictions. Do you want me to cancel the WRAP appointment on 12-08? Thank you, Radha documented in this encounter Plan of Treatment Not on filedocumented as of this encounter Visit Diagnoses Not on filedocumented in this encounter Care Teams Physical Therapist Aide Relationship Specialty Start Date End Date Abe Plummer MD PCP - General 10/07/11 12/14/19 documented as of this encounter
--- OUTSIDE RECORDS SUMMARY | 2022-03-06 01:29 | XMS_ITS | Encounter Summary ---
:1965 Author Organization [facility] Address [address] [place] [address] Care Team Providers Name Role Phone Unknown, Provider Primary Care Provider Encounter Details Date Type Department Care Team Description 02/14/2015 Results Only [facility]- Fartun Webb, ARTIST MODEL [phone] [place] [address] [address] [place], [place] [address] (Wo rk) Social History Tobacco Use Types Packs/Day Years Used Date Never Assessed Sex Assigned at Date Recorded Not on file documented as of this encounter Plan of Treatment Not on filedocumented as of this encounter Procedures Procedure Name Priority Date/Time Associated Diagnosis Comme nts PAP TEST- RESULT Routine 02/14/2015 0:00 EDT Resu lts for this ONLY procedure are i n the results section. documented in this encounter Results PAP TEST- RESULT ONLY (02/14/2015 0:00 EDT) Pathology Report: CYTOPATHOLOGY REPORT [facility] Reports generated via electronic interface contain lucia ginal data; SERVICES however they are lacking the format of the original re port. Caution should be taken when reading/interpreting unfo rmatted reports. Name: ? JESSY PORTER ? Accession #: ? [id number] ? : ? 1965 (Age: 5 8) ??F ?Collect Date: ? 2014 ? Location: ? [facility] ? Receive Date: ? 5 ? Provider: FARTUN ASHTON DIGITAL MARKETING INTERN Copy to: ? Final Report SPECIMEN ADEQUACY ? Satisfactory for Evaluation - transformation zone component present GENERAL CATEGORIZATION ? Negative for Intraepithelial Lesion or Malignan cy ?? Last Menstrual Period: 01/28/2015 Other: Additional clinical information: all normal pap s Specimen/Source: ??Pap Test, Cervix/Endocervix, ThinPr ep Imaging System with manual evaluation Document reviewed and electronically signed by: ? ESTEPHANIA Taylor(ASCP) ? Report ??Date: 02/25/2015 13:40 HPV with Pap Test ? Date Ordered: ? 02/25/2015 ? Status: ?? Signed Out ?Date Complete: ? 02/27/2015 ? By: ??Sy stem Interface ? Date Reported: ? 02/27/2015 ? Interpretation RESULT: Negative for HPV. No E6 or E7 mRNA is detected from HPV types 16,18,31,3 3,35, 39,45,51,52,56,58,59,66, and 68 by precision honer media ene amplification. Comments Document reviewed and electronically signed by: ? System Interface ? Report date: 02/27/2015 By the signature above, the attending physician certif ies that he/she has personally conducted a gross and/or microscopic examin ation of the described specimens and rendered or confirmed the above diagnosi s. End of Report Specimen Performing Organization Address City/State/ZIP Code Phon e Number [facility] [address] [place] [address] SERVICES documented in this encounter Visit Diagnoses Not on filedocumented in this encounter Care Teams Talent Director Relationship Specialty Start Date End Date Unknown, Provider, PCP - General 11/05/10 documented as of this encounter
--- OUTSIDE RECORDS SUMMARY | 2022-03-06 01:29 | XMS_ITS | Encounter Summary ---
:1965 Author Organization [facility] Address [address] [place] [address] Care Team Providers Name Role Phone Unknown, Provider Primary Care Provider Encounter Details Date Type Department Care Team Description 03/02/2017 Results Only [facility]- Fartun Webb, AIRLINE MECHANIC [phone] [place] [address] [address] [place], [place] [address] (Wo rk) Social History Tobacco Use Types Packs/Day Years Used Date Never Assessed Sex Assigned at Date Recorded Not on file documented as of this encounter Plan of Treatment Not on filedocumented as of this encounter Procedures Procedure Name Priority Date/Time Associated Diagnosis Comme nts PAP TEST- RESULT Routine 03/02/2017 0:00 EDT Resu lts for this ONLY procedure are i n the results section. documented in this encounter Results PAP TEST- RESULT ONLY (03/02/2017 0:00 EDT) Pathology Report: CYTOPATHOLOGY REPORT [facility] Reports generated via electronic interface contain lucia ginal data; SERVICES however they are lacking the format of the original re port. Caution should be taken when reading/interpreting unfo rmatted reports. Name: ? JESSY PORTER ? Accession #: ? [id number] ? : ? 1965 (Age: 6 0) ??F ?Collect Date: ? 03/02/2017 ? Location: ? [facility] ? Receive Date: ? 03/04/20 17 ? Provider: FARTUN ASHTON LEG ASSEMBLER Copy to: ? Final Report SPECIMEN ADEQUACY ? Satisfactory for Evaluation - transformation zone component present GENERAL CATEGORIZATION ? Negative for Intraepithelial Lesion or Malignan cy ?? Last Menstrual Period: 10/14/16 Hormonal/Contraceptive status: None Other: Previous NIL Pap(s) Specimen/Source: ??Pap Test, Cervix/Endocervix, ThinPr ep Imaging System with manual evaluation Document reviewed and electronically signed by: ? Gayle Horner, ESTEPHANIA(ASCP) ? Report ??Date: 03/12/2017 15:17 HPV with Pap Test ? Date Ordered: ? 03/12/2017 ? Status: ?? Signed Out ?Date Complete: ? 03/15/2017 ? By: ??Sy stem Interface ? Date Reported: ? 03/15/2017 ? Interpretation RESULT: Negative for HPV. No E6 or E7 mRNA is detected from HPV types 16,18,31,3 3,35, 39,45,51,52,56,58,59,66, and 68 by brine tank separator operator media ene amplification. Comments Document reviewed and electronically signed by: ? System Interface ? Report date: 03/15/2017 By the signature above, the attending physician certif ies that he/she has personally conducted a gross and/or microscopic examin ation of the described specimens and rendered or confirmed the above diagnosi s. End of Report Specimen Performing Organization Address City/State/ZIP Code Phon e Number [facility] [address] [place] [address] SERVICES documented in this encounter Visit Diagnoses Not on filedocumented in this encounter Care Teams Lab Systems Analyst Relationship Specialty Start Date End Date Unknown, Provider, PCP - General 11/05/10 documented as of this encounter
--- OUTSIDE RECORDS SUMMARY | 2022-03-06 01:29 | XMS_ITS | Encounter Summary ---
:1965 Author Organization [facility] Address [address] [place] [address] Care Team Providers Name Role Phone Unknown, Provider Primary Care Provider Encounter Details Date Type Department Care Team Description 10/29/2011 Results Only [facility]- Fartun Webb, MACHINE TOOL TECHNICIAN INSTRUCTOR [phone] [place] [address] [address] [place], [place] [address] (Wo rk) Social History Tobacco Use Types Packs/Day Years Used Date Never Assessed Sex Assigned at Date Recorded Not on file documented as of this encounter Plan of Treatment Not on filedocumented as of this encounter Procedures Procedure Name Priority Date/Time Associated Diagnosis Comme nts PAP TEST- RESULT Routine 10/29/2011 0:00 EDT Resu lts for this ONLY procedure are i n the results section. documented in this encounter Results PAP TEST- RESULT ONLY (10/29/2011 0:00 EDT) Pathology Report: CYTOPATHOLOGY REPORT [facility] Reports generated via electronic interface contain lucia ginal data; however they are lacking the format of the original re port. Caution should be taken when reading/interpreting unfo rmatted reports. Name: ? JESSY PORTER ? Accession #: ? [id number] : ? 1965 (Age: 46) ??F ?Collect Date: ? 10/14 Location: ? [facility] ? Receive Date : ? 10/30/2011 Provider: ?FARTUN ASHTON HOME AGENT Copy to: ? Specimen/Source: ? Pap Test, Cervix/Endocervix, ThinPrep Imaging System with manual evaluation Last Menstrual Period: ? 10/19/11 Hormonal/Contraceptive Status: ? Yes: Microgestin ? SPECIMEN ADEQUACY ? Satisfactory for Evaluation - transformation zone component present GENERAL CATEGORIZATION ? Negative for Intraepithelial Lesion or Malignan cy INTERPRETATION ? Shift in dick present suggestive of bacterial vaginosis. ? Document reviewed and electronically signed by: ? ESTEPHANIA Taylor(ASCP) ? Report Date: ??11/02/2011 15:33 End of Report Specimen Performing Organization Address City/State/ZIP Code Phon e Number [facility] [address] [place] [address] SERVICES [facility] [address] [place] [address] documented in this encounter Visit Diagnoses Not on filedocumented in this encounter Care Teams Services Delivery Driver Relationship Specialty Start Date End Date Unknown, Provider, PCP - General 11/05/10 documented as of this encounter
--- OUTSIDE RECORDS SUMMARY | 2022-03-06 01:29 | XMS_ITS | Encounter Summary ---
:1965 Author Organization [facility] Address [address] [place] [address] Care Team Providers Name Role Phone Unknown, Provider Primary Care Provider Encounter Details Date Type Department Care Team Description 11/04/2010 Results Only [facility]- Fartun Webb, MARKETING SUMMER INTERN [phone] [place] [address] [address] [place], [place] [address] (Wo rk) Social History Tobacco Use Types Packs/Day Years Used Date Never Assessed Sex Assigned at Date Recorded Not on file documented as of this encounter Plan of Treatment Not on filedocumented as of this encounter Procedures Procedure Name Priority Date/Time Associated Diagnosis Comme nts CYTOPATHOLOGY Routine 11/04/2010 0:00 EDT Results for this procedure are i n the results section . documented in this encounter Results CYTOPATHOLOGY (11/04/2010 0:00 EDT) Pathology Report: CYTOPATHOLOGY REPORT ? [facility] Reports generated via Contently interface contain original data; ? however they are lacking the format of the original report. ? Caution should be taken when reading/interpreting unformatted reports. ? Name: ? JESSY PORTER ? Accession #: ? [id number] ? : ? 1965 (Age: 45) ??F ?Collect Date: ? 11/04/2010 ? Location: ? [facility] ? R eceive Date: ? 11/05/2010 ? Provider: FARTUN O ASHTON DETECTIVE [place] ? Copy to: ? Final Report ? SPECIMEN ADEQUACY ? Satisfactory for Eval uation ? - transformation zone compon ent present ? GENERAL CATEGORIZATION ? Negative for Intraepi thelial Lesion or Malignancy ? Last Menstural Period: 03/04 / ? Other: Additional clinical i nformation: Prior OCP in 1990. Clothing Designer clinical & ? treatment hx negative ? Specimen/Source: ??Pap Test, Cervix/Endocervix, ThinPrep Imaging System with ? manual evaluation ? Document reviewed and electr onically signed by: ? Cinthya Escobar CT(A SCP) ? Report ??Date: 03/25/ 2011 15:57 ? HPV with Pap Test ? Date Ordered: ? 0 11/07/2010 ? Status: ?? Signed Out ?Date Complete: ? 11/12/2010 ? By: ??System Interface ? Date Reported: ? 11/12/2010 ? Interpretation ? RESULT: Negative for HPV typ es 16, 18, 31, 33, 35, 39, 45, 51, 52, ? 56, 58, 59, and 68. ? Comments ? Document reviewed and electr onically signed by: ? System Interface ? Report date: 11/12/20 11 ? By the signature above, the attending physician certifies that he/she has ? personally conducted a gross and/or microscopic examination of the described ? specimens and rendered or co nfirmed the above diagnosis. ? End of Report ? Specimen Performing Organization Address City/State/ZIP Code Phon e Number [facility] [address] [place] [address] SERVICES [facility] [address] [place] [address] documented in this encounter Visit Diagnoses Not on filedocumented in this encounter Care Teams Global Compensation Director Relationship Specialty Start Date End Date Unknown, Provider, PCP - General 11/05/10 documented as of this encounter
--- OUTSIDE RECORDS SUMMARY | 2022-03-06 01:29 | XMS_ITS | Encounter Summary ---
:1965 Author Organization [facility] Address [address] [place] [address] Care Team Providers Name Role Phone Unknown, Provider Primary Care Provider Encounter Details Date Type Department Care Team Description 03/03/2016 Results Only [facility]- Fartun Webb, ENTERPRISE APPLICATION ARCHITECT [phone] [place] [address] [address] [place], [place] [address] (Wo rk) Social History Tobacco Use Types Packs/Day Years Used Date Never Assessed Sex Assigned at Date Recorded Not on file documented as of this encounter Plan of Treatment Not on filedocumented as of this encounter Procedures Procedure Name Priority Date/Time Associated Diagnosis Comme nts PAP TEST- RESULT Routine 03/03/2016 0:00 EDT Resu lts for this ONLY procedure are i n the results section. documented in this encounter Results PAP TEST- RESULT ONLY (03/03/2016 0:00 EDT) Pathology Report: CYTOPATHOLOGY REPORT [facility] Reports generated via electronic interface contain lucia ginal data; SERVICES however they are lacking the format of the original re port. Caution should be taken when reading/interpreting unfo rmatted reports. Name: ? JESSY PORTER ? Accession #: ? [id number] ? : ? 1965 (Age: [age]) ??F ?Collect Date: ? 03/03/2016 ? Location: ? [facility] ? Receive Date: ? 03/04/20 16 ? Provider: FARTUN ASHTON MONEY MANAGER Copy to: ? Final Report SPECIMEN ADEQUACY ? Satisfactory for Evaluation - transformation zone component absent GENERAL CATEGORIZATION ? Negative for Intraepithelial Lesion or Malignan cy ?? Last Menstrual Period: 02/23/16 Other: Previous NIL Pap(s): All normal Paps Specimen/Source: ??Pap Test, Cervix/Endocervix, ThinPr ep Imaging System with manual evaluation Document reviewed and electronically signed by: ? ESTEPHANIA Ward(ASCP) ? Report ??Date: 03/16/2016 10:40 HPV with Pap Test ? Date Ordered: ? 03/16/2016 ? Status: ?? S igned Out ?Date Complete: ? 03/18/2016 ? By: ??Sys tem Interface ? Date Reported: ? 03/18/2016 ? Interpretation RESULT: Negative for HPV. No E6 or E7 mRNA is detected from HPV types 16,18,31,3 3,35, 39,45,51,52,56,58,59,66, and 68 by hardware engineering manager media ene amplification. Comments Document reviewed and electronically signed by: ? System Interface ? Report date: 03/18/2016 By the signature above, the attending physician certif ies that he/she has personally conducted a gross and/or microscopic examin ation of the described specimens and rendered or confirmed the above diagnosi s. End of Report Specimen Performing Organization Address City/State/ZIP Code Phon e Number [facility] [address] [place] [address] SERVICES documented in this encounter Visit Diagnoses Not on filedocumented in this encounter Care Teams Dot Compliance Coordinator Relationship Specialty Start Date End Date Unknown, Provider, PCP - General 11/05/10 documented as of this encounter
--- NOTE | 2022-03-06 07:43 | DI.MAMMO_ITS ---
Exam(s) MAMMO SCREENING EXAM: MAMMO SCREENING CLINICAL HISTORY: SCREENING,Z12.31 TECHNIQUE: Mammograms were interpreted according to the usual protocol including computer analysis w [employer] CAD system, tomosynthesis and C-view imaging. COMPARISON: 2014 through 2020 from [facility]. FINDINGS: The breasts are composed of scattered fibroglandular densities, Breast Density category B. No suspicious masses or suspicious microcalcifications are seen. There is stable coarse calcificatio ns in the subareolar region of the right breast. There is a stable ovoid area of nodularity in the u pper outer quadrant of the left breast in the subareolar tissue. No skin thickening or abnormal axillary lymph nodes are seen. There has been no significant change from prior exams. IMPRESSION: BI-RADS Cat 2 - Benign Findings Yearly screening mammography is recommended. Breast Density - Category B, scattered fibroglandular densities. A negative radiographic report should not delay biopsy if a dominant or clinically suspicious mass is present. Up to ten percent of cancers are not identified on mammography. A negative report may reinforce clinical impression. Adenosis and dense breasts may obscure an underlying neoplasm. False positive reports average 6 to 10%. Patient will receive a letter notifying them of these results.
== END ==
PROVIDERS: PCP Family Medicine; Visit Provider Family Medicine
DX: Z12.31 Encounter for screening mammogram for malignant neoplasm of breast (principal); R92.8 Other abnormal and inconclusive findings on diagnostic imaging of breast
CPT/HCPCS: 77063; 77067

== ENCOUNTER 2022-06-03 02:41 | Outpatient (CLI) | payer OTHER, SELFPAY ==
[2022-06-03 07:19] LABS: Abs Immature Grans 0.01 10^3/uL (0.0-0.06); Absolute Basophil Count 0.04 10^3/uL (0.0-0.2); Absolute Eosinophil Count 0.48 10^3/uL (0.0-0.7); Absolute Lymphocyte Count 1.93 10^3/uL (1.2-3.4); Absolute Monocyte Count 0.53 10^3/uL (0.1-0.8); Absolute Neutrophil Count 2.46 10^3/uL (1.2-6.7); Basophils % 0.7; Eosinophils % 8.8; HCT 42.7 % (36.0-46.0); HGB 14.5 g/dL (11.2-15.7); Immature Grans % 0.2; Lymphocytes % 35.4; MCH 31.4 pg (27.0-33.0); MCV 92 fL (80-95); MPV 9.2 fL (8.0-11.0); Monocytes % 9.7; Neutrophils % 45.2; Platelet Count 267 10^3/uL (130-400); RBC 4.62 10^6/uL (3.93-5.22); RDW 12.4 % (11.7-14.6); RDW-SD 42.5 fL; WBC 5.45 10^3/uL (4.4-10.8)
[2022-06-03 08:11] LABS: ALT 34 U/L (14-59); AST 25 U/L (15-37); Alkaline Phosphatase 111 U/L (46-116); Anion Gap 8.6 mmol/L (3-11); BUN 13 mg/dL (7-18); Bilirubin, Total 0.4 mg/dL (0.2-1.0); CO2 29.4 mmol/L (21.0-32.0); CREATININE 0.8 mg/dL (0.55-1.02); Calcium 9.5 mg/dL (8.5-10.1); Calculated LDL 193 mg/dL (<100); Chloride 104 mmol/L (98-107); Cholesterol 310 mg/dL (<200); Estimated GFR 86.96 (mL/min/1.73m2); Glucose 93 mg/dL (74-106); HDL Cholesterol 101 mg/dL (40-60); Sodium 142 mmol/L (136-145); TSH 1.76 uIU/mL (0.36-3.74); Total Protein 8.1 g/dL (6.4-8.2); Triglyceride 80 mg/dL (<150)
== END 2022-06-03 02:42 | disposition home or self-care (01) ==
LOC: LBO 02:41
PROVIDERS: PCP Family Medicine; Visit Provider Family Medicine
DX: Z13.220 Encounter for screening for lipoid disorders (principal); Z00.00 Encounter for general adult medical examination without abnormal findings
CPT/HCPCS: 36415; 80053; 80061; 84443; 85025

== ENCOUNTER → 2023-07-26 02:46 | Outpatient (CLI) | payer BC, OTHER, SELFPAY ==
--- NOTE | 2023-07-26 | DI.MAMMO_ITS ---
Exam(s) MAMMO SCREENING EXAM: MAMMO SCREENING CLINICAL HISTORY: Z12.39 Screening TECHNIQUE: Mammograms were interpreted according to the usual protocol including computer analysis w [employer] CAD system, tomosynthesis and C-view imaging. COMPARISON: 2014 through 2021 FINDINGS: The breasts are composed of mainly fatty density , Breast Density category A. No suspicious masses or suspicious microcalcifications are seen. Benign calcifications again noted r ight breast. No skin thickening or abnormal axillary lymph nodes are seen. There has been no significant change from prior exams. IMPRESSION: BI-RADS Category 2 - Negative Mammogram with benign findings. Yearly screening mammography is recomm ended. Breast Density - Category A, fatty density. A negative radiographic report should not delay biopsy if a dominant or clinically suspicious mass is present. Up to ten percent of cancers are not identified on mammography. A negative report may reinforce clinical impression. Adenosis and dense breasts may obscure an underlying neoplasm. False positive reports average 6 to 10%. Patient will receive a letter notifying them of these results.
== END ==
PROVIDERS: PCP Family Medicine; Visit Provider Physician Assistant
DX: Z12.31 Encounter for screening mammogram for malignant neoplasm of breast (principal)
CPT/HCPCS: 77063; 77067

== ENCOUNTER → 2023-12-06 03:34 | Outpatient (CLI) | payer BC, OTHER, SELFPAY ==
--- NOTE | 2023-12-06 | DI.MRI_ITS ---
Exam(s) MR ANGIO BRAIN WO CLINICAL HISTORY: VISUAL DISTURBANCE H53.9. TECHNIQUE: Multiplanar multisequence MRA of the brain was performed. COMPARISON: No exams were available for comparison FINDINGS: Carotid Arteries: No aneurysm, occlusion or significant stenosis. Anterior Cerebral Arteries: Right: No aneurysm, occlusion or significant stenosis. Left: No aneurysm, occlusion or significant stenosis. Middle Cerebral Arteries: Right: No aneurysm, occlusion or significant stenosis. Left: No aneurysm, occlusion or significant stenosis. Posterior Cerebral Arteries: Right: No aneurysm, occlusion or significant stenosis. The right posterior cerebral artery arises fr om the posterior communicating artery which is a normal variant. Left: No aneurysm, occlusion or significant stenosis. Vertebral Arteries: Right: No aneurysm, occlusion or significant stenosis. Left: No aneurysm, occlusion or significant stenosis. Basilar Artery: No aneurysm, occlusion or significant stenosis. IMPRESSION: Normal MRA examination of the [place]. DATA REPOSITORY:
--- NOTE | 2023-12-06 | DI.MRI_ITS ---
Exam(s) MR ANGIO NECK WO EXAM: MR ANGIO NECK WO CLINICAL HISTORY: VISUAL DISTURBANCE H53.9. TECHNIQUE: Multiplanar multisequence MRA of the Neck was performed. COMPARISON: No exams were available for comparison FINDINGS: Common Carotid: Right: No dissection, occlusion or significant stenosis. Left: No dissection, occlusion or significant stenosis. External Carotid: Right: No evidence of occlusion or significant stenosis. Left: No evidence of occlusion or significant stenosis. Internal Carotid: Right: No dissection, occlusion or significant stenosis. Left: No dissection, occlusion or significant stenosis. Vertebral Artery: Right: No dissection, occlusion or significant stenosis. Left: No dissection, occlusion or significant stenosis. The visualized paraspinal soft tissues are unremarkable. IMPRESSION: No evidence of dissection, occlusion or significant stenosis. DATA REPOSITORY:
--- NOTE | 2023-12-06 | DI.MRI_ITS ---
Exam(s) MR BRAIN WO EXAM: MR BRAIN WO CLINICAL HISTORY: VISUAL DISTURBANCE H53.9 TECHNIQUE: Multiplanar multisequence MRI of the brain was performed. COMPARISON: No priors for comparison. FINDINGS: VENTRICLES AND EXTRA AXIAL SPACES: Normal in size and morphology for the patient's age. MIDLINE SHIFT: None. CEREBRAL PARENCHYMA: No focus of restricted diffusion to suggest acute infarct. No space-occupying le rajinder identified. HEMORRHAGE: None. BRAINSTEM/CEREBELLUM: Normal. CALVARIUM: Normal. VISUALIZED PARANASAL SINUSES/MASTOIDS:Clear. [place]: Normal flow void. PITUITARY GLAND: Unremarkable. There is no evidence of a suprasellar mass. OTHER FINDINGS: None. IMPRESSION: Unremarkable MRI of the brain. DATA REPOSITORY:
== END ==
PROVIDERS: PCP Family Medicine; Visit Provider Student in an Organized Health Care Education/Training Program
DX: H53.9 Unspecified visual disturbance (principal)
CPT/HCPCS: 70544; 70547; 70551

== ENCOUNTER 2024-01-14 09:40 | Day surgery (SDC) | payer BC, OTHER, SELFPAY ==
--- NOTE | 2024-01-14 09:41 | W.ANESPRE ---
General Info Date of Service Date Performed: 01/14/24 Height: 5 ft 8.5 in Weight: 71.668 kg Body Mass Index (BMI): 23.6 Surgical Procedure: Operation Date: 01/14/24 12:40 Proposed Procedure Side Surgeon p Cataract Extraction with IOL Implant Right Manjinder Mg MD Meds Allergies and Home Medications Allergies Allergy/AdvReac Type Severity Reaction Status Date / Time Penicillins Allergy Anaphylaxsi Unverified 01/14/24 10:43 s sulfamethoxazole Allergy Anaphylaxis Verified 01/14/24 10:43 [From Bactrim] trimethoprim [From Bactrim] Allergy Anaphylaxsi Verified 01/14/24 10:43 s Home Medication Medication Instructions Recorded amlodipine 5 mg tablet 5 mg PO DAILY 01/07/24 cholecalciferol (vitamin D3) 50 50 mcg PO DAILY 01/07/24 mcg (2,000 unit) capsule (D3) escitalopram oxalate 5 mg tablet 10 mg PO DAILY 01/07/24 omeprazole 20 mg capsule,delayed 20 mg PO DAILY 01/07/24 release Current Visit Medications: Current Medications Generic Name Dose Route Start Last Admin Trade Name Freq PRN Reason Stop Dose Admin Acetaminophen 1,000 mg 01/14/24 06:00 Acetaminophen 500 Mg Tab PO 02/13/24 05:59 Q4H PRN PRN Balanced Salt Solution 500 ml 01/14/24 06:00 Balanced Salt Soln.-Plus 500 Ml Bag OP 02/13/24 05:59 DIRECTED DILAN Miscellaneous Medication 0 ml 01/14/24 06:00 Prednisolone 1%, Moxifloxacin 0.5%, Bromfenac 0.09% 5ml Btl OD 02/13/24 05:59 DIRECTED DILAN Miscellaneous Medication 0 ml 01/14/24 06:00 Tropicam./Phenyleph. (1/2.5%) 10 Ml Btl OD 02/13/24 05:59 DIRECTED DILAN Tetracaine HCl 0 ml 01/14/24 06:00 Tetracaine 0.5% 4 Ml Btl OD 02/13/24 05:59 DIRECTED DILAN PFSH Active Problems Active Problems: Problem Status Onset Code Cortical age-related cataract, right eye H25.011 Left elbow pain M25.522 Peroneal tendonitis of left lower leg M76.72 History of left lateral epicondylitis Z87.39 Ulnar neuropathy at elbow of left upper extremity 04/18/19 G56.22 Left lateral epicondylitis M77.12 Medical History Medical History Head ache Low back pain GERD (gastroesophageal reflux disease) Transient cerebral ischemia 2015-pt. 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) Essential hypertension Hyperlipemia Obstruction of right fallopian tube Surgical History Surgical History Status post breast reduction History of decompression of ulnar nerve History of bilateral fallopian tube excision History of bunionectomy of left great toe H/O arthroscopy of knee Right knee 2016 Left knee 1998 Tobacco Smoking/Tobacco Use Status: Former Tobacco Use Alcohol Alcohol Intake: current Alcohol intake frequency: 0-2 drinks per day Alcohol type: beer Substance Use Substance use: Never Substance use type: does not use Vital Signs and Lab Results Vital Signs Most Recent Vital Signs in EMR: Temp Pulse Resp BP Pulse Ox 36.4 C L 68 16 134/103 H 98 01/14/24 10:35 01/14/24 10:35 01/14/24 10:35 01/14/24 10:55 01/14/24 10:35 Lab Results Blood Type / Crossmatch: No Data to Display Complete Blood Count: No Data to Display Complete Metabolic Panel: No Data to Display Liver Function Panel: No Data to Display Coagulation Panel: No Data to Display Cardiac Panel: No Data to Display Arterial Blood Gas: No Data to Display Venous Blood Gas: No Data to Display Pancreas Panel: No Data to Display Thyroid Panel: No Data to Display Infectious Disease: No Data to Display Blood Cultures: No Data to Display Toxicology Panel: No Data to Display Anesthesia Assessment and Plan Anesthesia History Personal History: No History of Anesthesia Complications Family History: No Family History of Anesthesia Complications Exercise Tolerance Exercise Tolerance: Metabolic Equivalents>4 Pertinent Negatives Pertinent Negatives: No Major Cardiovascular Symptoms or Complaints and No Major Pulmonary Symptoms or Complaints Cardiac & Pulmonary Exam Cardiac Exam: Normal S1/S2 Heart Sounds Pulmonary Exam: Clear Bilateral Breath Sounds Implantable Cardiac Device Does patient have a Pacemaker or an ICD?: No Airway Exam Known Difficult Airway: No Mallampati Class: 2 Mouth Opening: Normal (> 3cm) Thyromental Distance: Greater than 3 cm Neck Range of Motion: Full ROM Neck Circumference: Normal Teeth Condition: Normal Dentition ASA Classification ASA Score: ASA 2 Emergency Case?: No NPO Status NPO Status: NPO Clears >2 hours, Solids >8 hours Anesthesia Plan Resuscitation Status: Full Code Anesthesia Technique: MAC Anesthesia Airway Planned: Natural Airway Monitors Used: Standard Monitors
[2024-01-14 10:35] VITALS: BP 167/111; PULSE 68; RESP 16; TEMP 36.4; O2SAT 98
[2024-01-14 10:55] VITALS: BP 134/103
[2024-01-14 10:58] VITALS: BMI 23.6
[2024-01-14] MEDS: Povidone-Iodine Ophth 30 ML BTL (11:38)
[2024-01-14] MEDS: Tetracaine 0.5% 4 ML BTL OD (11:38)
[2024-01-14] MEDS: Lidocaine 1% Pres-Free 5 ML VIAL (11:46)
[2024-01-14] MEDS: Balanced Salt Soln.-PLUS 500 ML BAG OP (11:46)
[2024-01-14] MEDS: Duovisc Viscoelastic System EACH 1 EACH (11:46)
[2024-01-14 12:07] VITALS: BP 145/103; PULSE 77; RESP 16; TEMP 36.2
--- NOTE | 2024-01-14 12:08 | W.PM.DSUDISC ---
Date of service: 01/14/24 Time of Service: 12:08 Discharge Plan Disposition Patient Disposition: Home Discharge Details Attending Provider: Manjinder Mg Primary Care Provider: Juan Carlos Pardo Home Meds and New Rx's Prescriptions: No Action omeprazole 20 mg capsule,delayed release(DR/EC) 20 mg PO DAILY Patient Comments: TAKE 1 CAPSULE BY MOUTH EVERY DAY escitalopram oxalate 5 mg tablet 10 mg PO DAILY amlodipine 5 mg tablet 5 mg PO DAILY Patient Comments: TAKE 1 TABLET BY MOUTH EVERY DAY cholecalciferol (vitamin D3) [D3-2000] 50 mcg (2,000 unit) capsule 50 mcg PO DAILY Patient Comments: pt reports I dont take anymore Discharge Instructions Stand Alone Forms: DSU Post-Op CataractAngie (DSU) Discharge Orders Discharge Orders: Discharge Order (Routine); Ordered 01/14/24 Ordered By: Manjinder Mg DS: Diagnosis Discharge Diagnosis (1) Cortical age-related cataract, right eye: Status: Resolved
--- NOTE | 2024-01-14 12:09 | W.PM.OP ---
Date of service: 01/14/24 Time of Service: 12:09 Operative Note Operative Note DATE OF PROCEDURE: 01/14/24 PRE-OP DIAGNOSIS: Cortical cataract, right eye POST-OP DIAGNOSIS: same PROCEDURE: Cataract extraction using phacoemulsification with intraocular lens implant, right eye SURGEON: Manjinder Mg ANESTHESIA TYPE: Local By Surgeon and MAC Refer to Anesthesia Record ESTIMATED BLOOD LOSS: 0 PATHOLOGY: none sent COMPLICATIONS: None Patient was transported to: same day Patient's condition: stable Implants: [employer] Eyhance [id number] Indications: Progressive visual loss due to cataract, right eye Procedure Description: CATARACT SURGERY OPERATIVE REPORT PREOPERATIVE DIAGNOSIS: 1. Cortical cataract, right eye POSTOPERATIVE DIAGNOSIS: Same OPERATION: 1. Cataract extraction using phacoemulsification with posterior chamber intraocular lens implant, right eye. IOL: IOL Warehouse Attendant/Model: [employer] Eyhance [id number] IOL Power: + 16.0 diopters IOL Serial Number: [id number] Optic Diameter: 6.0mm Haptic/Overall Diameter: 13.0mm PHACO INFO: [employer] Vision System with OZil and Active Fluidics Cumulative Dispersed Energy (CDE): 3.87 seconds SURGEON: Manjinder Mg MD, LEATHA ANESTHESIA: Monitored Anesthesia Care (MAC), with local sub-tenon's anesthetic infiltration COMPLICATIONS: None SPECIMENS: None INDICATIONS FOR PROCEDURE: The patient is a 58-year-old lady with history of myopia who has developed a significant cortical cataract in the right eye. She is significantly symptomatic that she desires cataract surgery and attempt to improve and maximize her vision. See office notes for detailed information. PROCEDURE: The correct surgical eye was identified and marked as the right eye and the pupil was dilated in the preoperative area using mydriatics and cycloplegics. The dilated pupil size was 8.0 mm. Oral sedation was administered in the form of an Imprimis MKO Melt (midazolam 3mg/ketamine 25mg/ondansetron 2mg). . The patient was brought to the operating room where cardiopulmonary monitoring was instituted and surgical time-out was performed, confirming the correct operative eye and IOL power. Topical anesthesia was administered and ophthalmic povidone-iodine 5% was instilled into the conjunctival fornices. The emeli-ocular area was prepped with Betadine 10% solution and draped in the usual sterile fashion for intraocular surgery, including an aperture drape. A Tegaderm transparent film dressing was cut in half and used to cover the lashes and lid margins. Care was taken to sequester the lashes and lid margins under the Tegaderm dressing. A lid speculum was placed between the lids of the operative eye and the Venu [employer] Revalia operating microscope was maneuvered into position. Jovanny scissors were then used to make a conjunctival buttonhole approximately 6mm posterior to the limbus in the inferonasal quadrant. Blunt dissection was carried out to expose bare sclera, and a blunt-tipped sub-tenon?s anesthesia cannula was introduced and passed posteriorly along the globe where non-preserved plain lidocaine was injected into posterior sub-Tenon?s space. A sideport knife was used to make a paracentesis port. Intraocular phenylephrine/lidocaine was injected into the anterior chamber. The anterior chamber was filled with viscoelastic. A keratome knife was used to construct a 2-plane clear corneal tunnel extending 2.0mm into clear cornea. A flap was raised on the anterior capsule and capsulorhexis forceps were used to complete a continuous curvilinear capsulorhexis of 5.0 mm. Balanced salt solution was then used to perform cortical cleaving hydrodissection and nuclear hydrodelineation until the lens could be freely rotated within the capsular bag. The lens nucleus was then disassembled and removed within the capsular bag and iris plane using phacoemulsification. Residual cortical material was removed using the I/A handpiece. The posterior capsule was carefully polished to remove as much residual lens epithelial cells as safely possible. The capsular bag was then inflated and the anterior chamber deepened with cohesive viscoelastic. The lens implant described above was inserted into the capsular bag using the [employer] Simplicity pre-loaded injector. A Kuglen hook was used to dial the IOL into position. Residual viscoelastic was then removed first from posterior to the IOL, then from the anterior chamber using the I/A handpiece. The lens implant was noted to center nicely within the capsular bag. The incisions were stromally hydrated, and the anterior chamber was reformed using BSS. Then 0.5cc of moxifloxacin 1.0mg/ml were injected into the capsular bag and anterior chamber. The incisions were checked with a Weck spear and found to be secure. Several drops of ophthalmic povidone-iodine 5% were then applied to the eye followed by two drops ocombination steroid/NSAID/antibiotic solution. The drapes were removed and a clear plastic protective eye shield was placed over the eye. The patient was then returned to Same Day Surgery in stable condition.
[2024-01-14 12:29] VITALS: BP 141/100; PULSE 83; RESP 16; TEMP 36.7; O2SAT 98
--- NOTE | 2024-01-14 12:45 | W.ANESPOSTOP ---
Postoperative Evaluation Date, Time and Location Date Performed: 01/14/24 Time Performed: 12:10 Patient Location: Day Surgery Unit Vital Signs Most Recent Imported Vital Signs: Most Recent Vital Signs Temp Pulse Resp BP Pulse Ox 36.7 C 83 16 141/100 H 98 01/14/24 12:29 01/14/24 12:29 01/14/24 12:29 01/14/24 12:29 01/14/24 12:29 Pain Score Most Recent Pain Score: Most Recent Pain Score Pain Level 0 01/14/24 12:29 Assessment Mental Status: Awake (Alert & Oriented to Patient Baseline) Airway and Respiratory Function: Patent airway with normal (patient baseline) respiratory exam Cardiovascular Function: Hemodynamically Stable Hydration Status: Adequately Hydrated Nausea & Vomiting: No Nausea or Vomiting Pain: Pt. Denies Any Pain Peripheral Nerve Block: Patient did not receive a nerve block
== END 2024-01-14 12:33 | disposition home or self-care (01) ==
LOC: SUR 09:40
PROVIDERS: PCP Physician Assistant; Visit Provider Ophthalmology
PROC: (CPT 66984; principal; 2024-01-14 12:30)
DX: H25.011 Cortical age-related cataract, right eye (principal)
CPT/HCPCS: 66984; 00123; V2632; J2003

== ENCOUNTER 2024-01-28 08:28 | Day surgery (SDC) | payer BC, OTHER, SELFPAY ==
[2024-01-28 09:13] VITALS: BP 147/107; PULSE 69; RESP 18; TEMP 36.4; O2SAT 99
--- NOTE | 2024-01-28 09:46 | W.ANESPRE ---
General Info Date of Service Date Performed: 01/28/24 Height: 5 ft 8.5 in Weight: 72.3 kg Body Mass Index (BMI): 23.8 Surgical Procedure: Operation Date: 01/28/24 10:40 Proposed Procedure Side Surgeon p Cataract Extraction with IOL Implant Left Manjinder Mg MD Meds Allergies and Home Medications Allergies Allergy/AdvReac Type Severity Reaction Status Date / Time Penicillins Allergy Anaphylaxsi Unverified 01/28/24 09:22 s sulfamethoxazole Allergy Anaphylaxis Verified 01/28/24 09:22 [From Bactrim] trimethoprim [From Bactrim] Allergy Anaphylaxsi Verified 01/28/24 09:22 s Home Medication Medication Instructions Recorded amlodipine 5 mg tablet 5 mg PO DAILY 01/07/24 cholecalciferol (vitamin D3) 50 50 mcg PO DAILY 01/07/24 mcg (2,000 unit) capsule (D3) escitalopram oxalate 5 mg tablet 10 mg PO DAILY 01/07/24 omeprazole 20 mg capsule,delayed 20 mg PO DAILY 01/07/24 release Current Visit Medications: Current Medications Generic Name Dose Route Start Last Admin Trade Name Freq PRN Reason Stop Dose Admin Acetaminophen 1,000 mg 01/28/24 06:00 Acetaminophen 500 Mg Tab PO 02/27/24 05:59 Q4H PRN PRN Balanced Salt Solution 500 ml 01/28/24 06:00 Balanced Salt Soln.-Plus 500 Ml Bag OP 02/27/24 05:59 DIRECTED DILAN Miscellaneous Medication 0 ml 01/28/24 06:00 Prednisolone 1%, Moxifloxacin 0.5%, Bromfenac 0.09% 5ml Btl OS 02/27/24 05:59 DIRECTED DILAN Miscellaneous Medication 0 ml 01/28/24 06:00 01/28/24 09:31 Tropicam./Phenyleph. (1/2.5%) 10 Ml Btl OS 02/27/24 05:59 1 drp DIRECTED DILAN Administration Tetracaine HCl 0 ml 01/28/24 06:00 Tetracaine 0.5% 4 Ml Btl OS 02/27/24 05:59 DIRECTED DILAN PFSH Active Problems Active Problems: Problem Status Onset Code Cortical age-related cataract, left eye H25.012 Cortical age-related cataract, right eye H25.011 Left elbow pain M25.522 Peroneal tendonitis of left lower leg M76.72 History of left lateral epicondylitis Z87.39 Ulnar neuropathy at elbow of left upper extremity 04/18/19 G56.22 Left lateral epicondylitis M77.12 Medical History Medical History Head ache Low back pain GERD (gastroesophageal reflux disease) Transient cerebral ischemia 2015-pt. 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) Essential hypertension Hyperlipemia Obstruction of right fallopian tube Surgical History Surgical History Status post breast reduction History of decompression of ulnar nerve History of bilateral fallopian tube excision History of bunionectomy of left great toe H/O arthroscopy of knee Right knee 2016 Left knee 1998 Tobacco Smoking/Tobacco Use Status: Former Tobacco Use Alcohol Alcohol Intake: current Alcohol intake frequency: 0-2 drinks per day Alcohol type: beer Substance Use Substance use: Never Substance use type: does not use Vital Signs and Lab Results Vital Signs Most Recent Vital Signs in EMR: Most Recent Vital Signs Temp Pulse Resp BP Pulse Ox 36.4 C L 69 18 147/107 H 99 01/28/24 09:13 01/28/24 09:13 01/28/24 09:13 01/28/24 09:13 01/28/24 09:13 Lab Results Blood Type / Crossmatch: No Data to Display Complete Blood Count: No Data to Display Complete Metabolic Panel: No Data to Display Liver Function Panel: No Data to Display Coagulation Panel: No Data to Display Cardiac Panel: No Data to Display Arterial Blood Gas: No Data to Display Venous Blood Gas: No Data to Display Pancreas Panel: No Data to Display Thyroid Panel: No Data to Display Infectious Disease: No Data to Display Blood Cultures: No Data to Display Toxicology Panel: No Data to Display Anesthesia Assessment and Plan Anesthesia History Personal History: No History of Anesthesia Complications Family History: No Family History of Anesthesia Complications Exercise Tolerance Exercise Tolerance: Metabolic Equivalents>4 Pertinent Negatives Pertinent Negatives: No Symptoms of GERD, No Major Cardiovascular Symptoms or Complaints and No Major Pulmonary Symptoms or Complaints Cardiac & Pulmonary Exam Cardiac Exam: Normal S1/S2 Heart Sounds Pulmonary Exam: Clear Bilateral Breath Sounds Implantable Cardiac Device Does patient have a Pacemaker or an ICD?: No Airway Exam Known Difficult Airway: No Mallampati Class: 2 Mouth Opening: Normal (> 3cm) Thyromental Distance: Greater than 3 cm Neck Range of Motion: Full ROM Neck Circumference: Normal Teeth Condition: Normal Dentition ASA Classification ASA Score: ASA 2 Emergency Case?: No NPO Status NPO Status: NPO Clears >2 hours, Solids >8 hours Anesthesia Plan Resuscitation Status: Full Code Anesthesia Technique: MAC Anesthesia Airway Planned: Natural Airway Monitors Used: Standard Monitors
[2024-01-28 09:51] VITALS: BMI 23.8
[2024-01-28] MEDS: Lidocaine 1% Pres-Free 5 ML VIAL (10:47)
[2024-01-28] MEDS: Duovisc Viscoelastic System EACH 1 EACH (10:48)
[2024-01-28] MEDS: Balanced Salt Soln.-PLUS 500 ML BAG OP (10:49)
[2024-01-28] MEDS: Povidone-Iodine Ophth 30 ML BTL (10:49)
[2024-01-28] MEDS: Tetracaine 0.5% 4 ML BTL OS (10:51)
[2024-01-28 11:04] VITALS: BP 139/104; PULSE 70; RESP 18; TEMP 36.3; O2SAT 98
--- NOTE | 2024-01-28 11:04 | W.PM.DSUDISC ---
Date of service: 01/28/24 Time of Service: 11:04 Discharge Plan Disposition Patient Disposition: Home Discharge Details Attending Provider: Manjinder Mg Primary Care Provider: Juan Carlos Pardo Home Meds and New Rx's Prescriptions: No Action omeprazole 20 mg capsule,delayed release(DR/EC) 20 mg PO DAILY Patient Comments: TAKE 1 CAPSULE BY MOUTH EVERY DAY escitalopram oxalate 5 mg tablet 10 mg PO DAILY amlodipine 5 mg tablet 5 mg PO DAILY Patient Comments: TAKE 1 TABLET BY MOUTH EVERY DAY cholecalciferol (vitamin D3) [D3-2000] 50 mcg (2,000 unit) capsule 50 mcg PO DAILY Patient Comments: pt reports I dont take anymore Discharge Instructions Stand Alone Forms: DSU Post-Op CataractAngie (DSU) Discharge Orders Discharge Orders: Discharge Order (Routine); Ordered 01/28/24 Ordered By: Manjinder Mg DS: Diagnosis Discharge Diagnosis (1) Cortical age-related cataract, left eye: Status: Resolved
--- NOTE | 2024-01-28 11:04 | W.PM.OP ---
Date of service: 01/28/24 Time of Service: 11:04 Operative Note Operative Note DATE OF PROCEDURE: 01/28/24 PRE-OP DIAGNOSIS: Cortical cataract, left eye POST-OP DIAGNOSIS: same PROCEDURE: Cataract extraction using phacoemulsification with intraocular lens implant, left eye SURGEON: Manjinder Mg ANESTHESIA TYPE: Local By Surgeon and MAC Refer to Anesthesia Record PATHOLOGY: none sent COMPLICATIONS: None Patient was transported to: same day Patient's condition: stable Implants: Charles and Charles Tecnis Eyhance DIB00 Indications: Progressive decreased vision due to cataract, left eye Procedure Description: CATARACT SURGERY OPERATIVE REPORT PREOPERATIVE DIAGNOSIS: 1. Cortical cataract, left eye POSTOPERATIVE DIAGNOSIS: Same OPERATION: 1. Cataract extraction using phacoemulsification with posterior chamber intraocular lens implant, left eye. IOL: IOL Hydrography Teacher/Model: Charles [employer] Charles Tecnis Eyhance DIB00 IOL Power: + 16.5 diopters IOL Serial Number: [id number] Optic Diameter: 6.0 mm Haptic/Overall Diameter: 13.0 mm PHACO INFO: VenuCylene Pharmaceuticalson Vision System with OZil and Active Fluidics Cumulative Dispersed Energy (CDE): 3.24 seconds SURGEON: Manjinder Mg MD, LEATHA ANESTHESIA: Monitored A [facility] (MAC), with local sub-tenon's anesthetic infiltration COMPLICATIONS: None SPECIMENS: None INDICATIONS FOR PROCEDURE: The patient is a 58-year-old lady with history of moderate to high myopia who has developed significant bilateral cortical cataracts. She is significantly symptomatic that she desires cataract surgery and attempt to improve and maximize her vision. She has already undergone cataract surgery in the right eye and is doing well postoperatively. She now presents for cataract surgery in the left eye. PROCEDURE: The correct surgical eye was identified and marked as the left eye and the pupil was dilated in the preoperative area using mydriatics and cycloplegics. The dilated pupil size was 8.0 mm. Oral sedation was administered in the form of an Imprimis MKO Melt (midazolam 3mg/ketamine 25mg/ondansetron 2mg). The patient was brought to the operating room where cardiopulmonary monitoring was instituted and surgical time-out was performed, confirming the correct operative eye and IOL power. Topical anesthesia was administered and ophthalmic povidone-iodine 5% was instilled into the conjunctival fornices. The emeli-ocular area was prepped with Betadine 10% solution and draped in the usual sterile fashion for intraocular surgery, including an aperture drape. A Tegaderm transparent film dressing was cut in half and used to cover the lashes and lid margins. Care was taken to sequester the lashes and lid margins under the Tegaderm dressing. A lid speculum was placed between the lids of the operative eye and the Venu LuxOR Revalia operating microscope was maneuvered into position. Jovanny scissors were then used to make a conjunctival buttonhole approximately 6mm posterior to the limbus in the inferonasal quadrant. Blunt dissection was carried out to expose bare sclera, and a blunt-tipped sub-tenon?s anesthesia cannula was introduced and passed posteriorly along the globe where non-preserved plain lidocaine was injected into posterior sub-Tenon?s space. A sideport knife was used to make a paracentesis port. Intraocular phenylephrine/lidocaine was injected into the anterior chamber.. The anterior chamber was filled with viscoelastic. A keratome knife was used to construct a 2-plane near-clear corneal tunnel extending 2.0mm into clear cornea. A flap was raised on the anterior capsule and capsulorhexis forceps were used to complete a continuous curvilinear capsulorhexis of 5.5mm. Balanced salt solution was then used to perform cortical cleaving hydrodissection and nuclear hydrodelineation until the lens could be freely rotated within the capsular bag. The lens nucleus was then disassembled and removed within the capsular bag and iris plane using phacoemulsification. Residual cortical material was removed using the irrigation/aspiration handpiece. The posterior capsule was carefully polished to remove as much residual lens epithelial cells as safely possible. The capsular bag was then inflated and the anterior chamber deepened with viscoelastic. The lens implant described above was inserted into the capsular bag using the Charles and Charles Simplicity pre-loaded injector. A Kuglen hook was used to dial the IOL into position. Residual viscoelastic was then removed first from posterior to the IOL, then from the anterior chamber using the I/A handpiece. The lens implant was noted to center nicely within the capsular bag. The incisions were stromally hydrated, and the anterior chamber was reformed using BSS. Then 0.5cc of moxifloxacin 1.0mg/ml were injected into the capsular bag and anterior chamber. The incisions were checked with a Weck spear and found to be secure. Several drops of ophthalmic povidone-iodine 5% were then applied to the eye followed by two drops of Imprimis combination prednisolone/moxifloxacin/nepafenac solution. The drapes were removed and a clear plastic protective eye shield was placed over the eye. The patient was then returned to Same Day Surgery in stable condition.
--- NOTE | 2024-01-28 11:21 | W.ANESPOSTOP ---
Postoperative Evaluation Date, Time and Location Date Performed: 01/28/24 Time Performed: 11:11 Patient Location: Day Surgery Unit Vital Signs Most Recent Imported Vital Signs: Most Recent Vital Signs Temp Pulse Resp BP Pulse Ox 36.3 C L 70 18 139/104 H 98 01/28/24 11:04 01/28/24 11:04 01/28/24 11:04 01/28/24 11:04 01/28/24 11:04 Pain Score Most Recent Pain Score: Most Recent Pain Score Pain Level 0 01/28/24 11:04 Assessment Mental Status: Awake (Alert & Oriented to Patient Baseline) Airway and Respiratory Function: Patent airway with normal (patient baseline) respiratory exam Cardiovascular Function: Hemodynamically Stable Hydration Status: Adequately Hydrated Nausea & Vomiting: No Nausea or Vomiting Pain: Pt. Denies Any Pain Peripheral Nerve Block: Patient did not receive a nerve block
[2024-01-28 11:22] VITALS: BP 136/103; PULSE 83; RESP 18; TEMP 36.2; O2SAT 97
== END 2024-01-28 11:30 | disposition home or self-care (01) ==
LOC: SUR 08:28
PROVIDERS: PCP Physician Assistant; Visit Provider Ophthalmology
PROC: (CPT 66984; principal; 2024-01-28 10:30)
DX: H25.012 Cortical age-related cataract, left eye (principal)
CPT/HCPCS: 66984; 00123; V2632; J2003

== ENCOUNTER 2024-07-11 18:35 | Outpatient (REF) | payer BC, OTHER, SELFPAY ==
--- NOTE | 2024-07-11 12:30 | PAPFT_PTH ---
PATIENT: Jessy Long LOC: [facility] U#:[id number] AGE/SX: 58/F ROOM: RE07/11/[address]: Lisa Siegel : 1965 BED: DIS: 07/11/2024 SPEC #: [id number] RECD: 07/12/24 12:43 STATUS: PATEL REQ #: [id number] MEL: 07/11/24 12:[address]: Lisa Siegel DEPT: [facility] Cytology RECD BY: Lizeth Perry ENTERED: 07/12/24 12:44 SP TYPE: PAPFT OTHR DR: Juan Carlos Pardo Tissues: 1 - CX/ENDOCX FOR PAP SMEARS Procedures: PAP THIN PREP/[facility] Screening HPV DNA PROBE Comments: [id number] (HPV 16 & 18/45)
--- OUTSIDE RECORDS SUMMARY | 2024-07-11 18:37 | XMS_ITS | Encounter Summary ---
[place] [address] Care Team Providers Care Orbitread Operator Name Role Phone Abe Plummer MD Primary Care Provider [phone] Reason for Referral * Occupational Therapy (Routine) - Closed Specialty Diagnoses / Procedures Referred By Contact Referred To Contact Occupational Therapy Diagnoses Sprain of left acromioclavicular joint Mechanical low back pain [facility] [address] [place] [phone] [facility] [place] [address] Referral ID Status Reason Start Date Expiration Date V isits Requested Visits Authorized [id number] Closed Other 10/07/2011 04/04/2012 1 1 * Physical Therapy (Routine) - Closed Specialty Diagnoses / Procedures Referred By Contac t Referred To Contact Physical Therapy Diagnoses Sprain of left acromioclavicular joint Mechanical low back pain [facility] [place] [address] [place] [address] [facility] [place] [address] Referral ID Status Reason Start Date Expiration Date V isits Requested Visits Authorized [id number] Closed Evaluate and Treat 10/07/2011 04/04/2012 1 1 Reason for Visit * Reason Comments Back Pain left shoulder Encounter Details Date Type Department Care Team (Latest Contact Info) Description 10/07/2011 2:05 PM EST Office Visit [place] [address] Delmer Ortega PA [facility] [address] Mechanical low back pain (Primary Dx); Sprain of left acromioclavicular joint Discharge Disposition: Home Social History Tobacco Use Types Packs/Day Years Used Date Smoking Tobacco: Former Cigarettes 0.5 8 0 08/31/2000 - 08/31/2008 Smokeless Tobacco: Never Alcohol Use Standard Drinks/Week Comments Yes 0 (1 standard drink = 0.6 oz pur e alcohol) Sex and Gender Information Value Date Recorded Sex Assigned at Not on file Gender Identity Female 12/12/2019 7:20 AM EDT Sexual Orientation Not on file documented as of this [...] EST documented in this encounter Progress Notes * Delmer Ortega PA - 10/07/2011 3:01 PM [...] 5/10. The symptoms are aggravated by lying down,position, sitting and standing. Associated symptoms include leg [...] walk. Lumbar ROM: there was no real increasein pain. Shoulder ROM: abduction to about 100 degrees with pain at the A/C joint and IR to about T8with no pain. Cervical ROM is full and pain-free. SLR: no pain. BG's is negative. Hip ROM is full and pain-free. No clonus and negative Mckay's. Distal pulses are intact. Neurologic Exam Assessment and Plan: Imaging: There are no current images for the lumbar spine but there was an MRI of the left shoulderwhich appears to be a fairly normal shoulder [...] on the ice on 08/01/2011, noting that shelanded on her left knee and left arm. [...] the A/C joint. She feels that her backpain and shoulder pain are equal and she rates her [...] left A/C joint and tenderness from L4-S1 and over both SI joints and the left buttock. She has relatively full lumbar range of motion without reproduction of pain she does have limited left shoulder range of motion with abduction to about 100 degrees which reproduces shoulder pain symptoms. Her cervical range of motion is full and pain-free. Neurologically she was intact to sensation, reflexes and strength. Her rotator cuffstrength is 5/5. She had negative straight leg raise test and negative Bg's test. MRI of the shoulder reveals a fairly normal shoulder MRI. This leads me to feel that the patient is dealing with aleft shoulder pain that appears to be related to an A/C joint sprain and she is also dealing with amechanical low back pain. Plan: I have discussed at length the diagnosis of mechanical low back pain, and the fact that it isoften difficult to know what is the actual pain generator. I have told the patient that most back pain will resolve on it's own from a period of 3 months to 1 year, whether we treat it or not. Occasionally back pain can become chronic. These symptoms are hurtful and not harmful. I have discussed josy t the best treatment for low back pain is to stay active with aerobic type activities such as walking, swimming and biking. However, I have also discussed other treatment options, including: Physicaltherapy with a Roshan based approach, NSAIDs, injections. At this point I feel the best option would be to do physical therapy for the low back, but I do feel it would be reasonable to order plain films of the lumbar spine to rule out any specific pathology. As for the shoulder pain, I feel that further physical therapy focusing on a range of motion program will likely get her shoulder symptomsto feel better. Potentially could consider referring her to one of my shoulder specialists althoughat this time physical therapy would be the most recommended option. She can certainly use some [id number]-dmk-qquduoo NSAIDs to see if she can get some improvement in her symptoms. After our discussion andanswering the patients questions, we have come to [...] Scheduled Referrals Name Type Priority Associated Diagnoses Orde r Schedule REFERRAL TO PHYSICAL THERAPY Outpatient Referral Routine Sprain of left acromioclavicular joint Mechanical low back pain Ordered: 10/07/2011 REFERRAL TO OCCUPATIONAL THERAPY Outpatient Referral Routine Sprain of left acromioclavicular joint Mechanical low back pain Ordered: 10/07/2011 documented as of this encounter Results * XR lumbar spine 2 or 3 views (10/07/2011 3:54 PM EST) Anatomical Region Laterality Modality L-spine N/A Radiographic Elma ging 10/07/2011 3:54 PM EST Impressions 10/08/2011 8:33 AM EST IMPRESSION: ?? No subluxation. No instability. L5-S1 facet arthropathy. Narrative 10/08/2011 8:33 AM EST LUMBAR SPINE, AP AND FLEXION/EXTENSION LATERAL IMAGES: HISTORY: ??pain COMPARISON STUDY: ??None. FINDINGS: ??There are five xrr-zot-ccbdnrl lumbar-type vertebral bodies. No spondylolisthesis or subluxation. Flexion/extension images reveal no instability. There is L5-S1 facet arthropathy. The pedicles are intact. Procedure Note Romy Adkins MD - 10/08/2011 LUMBAR SPINE, AP AND FLEXION/EXTENSION LATERAL IMAGES: HISTORY: pain COMPARISON STUDY: None. FINDINGS: There are five rka-uhi-qoxpulq lumbar-type vertebral bodies. No spondylolisthesis or subluxation. Flexion/extension images reveal no instability. There is L5-S1 facet arthropathy. The pedicles are intact. IMPRESSION IMPRESSION: No subluxation. No instability. L5-S1 facet arthropathy. Don Carmichael MD IMG DX ORDERABLES documented in this encounter Visit Diagnoses Diagnosis Mechanical low back pain- Primary Lumbago Sprain of left acromioclavicular joint Acromioclavicular (joint) (ligament) sprain Mechanical low back pain Lumbago documented in this encounter Care Teams Orbitread Operator Relationship Specialty Start Date End Date Abe Plummer MD PCP - General 10/07/11 12/14/19 documented as of this encounter
--- OUTSIDE RECORDS SUMMARY | 2024-07-11 18:37 | XMS_ITS | Encounter Summary ---
Author Organization [facility] [place] [address] Care Team Providers Care Power Washer Name Role Phone Abe Plummer MD Primary Care Provider [phone] Encounter Details Date Type Department Care Team (Late st Contact Info) Description 10/07/2011 External Results XRay at [address] [place] [address] Jd Steve MD [address] [place] [address] [place] [address] Social History Tobacco Use Types Packs/Day Years [...] this encounter Plan of Treatment Not on file documented as of this encounter Procedures Procedure Name Priority Date/Time Associated Diagnosis Comments MRI/MRA SCAN Routine 09/30/2011 documented in this encounter Results * Scan Doc: MRI/MRA (09/30/2011) Anatomical Region Laterality Modality Other Jd Steve MD MEDIA MGR SCAN EXT O RDR/RSLT documented in this encounter Visit Diagnoses Not on filedocumented in this encounter Care Teams Power Washer Relationship Specialty Start Date End Date Abe Plummer MD PCP - General 10/07/11 12/14/19 documented as of this encounter
--- OUTSIDE RECORDS SUMMARY | 2024-07-11 18:37 | XMS_ITS | Clinical Summary ---
Author Organization [place] [address] Care Team Providers Care Marketing Content Coordinator Name Role Phone Hannah Sosa MD Primary Care Provider + Allergies Active Allergy Reactions Criticality Noted Date Comments Cedarwood Extract Rash 10/07/2011 Penicillins Rash 10/07/2011 Bloated, turns red Medications Medication Sig Dispensed Refills Start Date End Date Status omeprazole (PRILOSEC) 40 mg capsuleIndication s:gastroesophagea l reflux disease Take 40 mg by mouth daily. Indications: Gastroesophageal Reflux Acti ve multivitamin (THERAGRAN) tablet Take 1 tablet by mouth daily. Active Active Problems Problem Noted Date Diagnosed Date Sprain of left acromioclavicular joint 2 Mechanical low back pain 10/07/2011 Family History Medical History Relation Comments Coronary Artery Disease Mother Diabetes Mother High Blood Pressure Mother High Cholesterol Mother Relation Status Comments Mother Social History Tobacco Use Types Packs/Day Years Used Date Smoking Tobacco: Former Cigarettes 0.5 8 0 08/31/2000 - 08/31/2008 Smokeless Tobacco: Never Alcohol Use Standard Drinks/Week Comments Yes 0 (1 standard drink = 0.6 oz pur e alcohol) Sex and Gender Information Value Date Recorded Sex Assigned at Not on file Gender Identity Female 12/12/2019 7:20 AM EDT Sexual Orientation Not on file Last Filed Vital Signs Vital Sign Reading Time Taken Comments Blood Pressure - - Pulse - - Temperature - - Respiratory Rate - - Oxygen Saturation - - Inhaled Oxygen Concentration - - Weight 67.6 kg (149 lb) 10/07/2011 2:22 PM EST Height 172.7 cm (5' 8) 10/07/2011 2:22 PM EST Body Mass Index 22.66 10/07/2011 2:22 PM EST Plan of Treatment Health Maintenance Due Date Last Done Comments CT Colonography 1965 Colonoscopy 1965 Colorectal Cancer Screening 1965 FIT DNA 1966 FIT 1965 Sigmoidoscopy (10 year) with FIT yearly 1965 Sigmoidoscopy 1965 HIV screen 1984 Hepatitis C Screening 1984 Hepatitis B vaccine (0-59 yrs) (1) 1985 Tetanus/Diphtheria/Pertussis Vaccines (1 - Tdap) 1985 HPV test 1996 PAP Smear 1996 Breast Cancer Share Decision Needed 2006 Breast Cancer screening 2006 Zoster vaccine (1 of 2) 2016 Advance Directive 2021 Covid-19 Vaccine ( season) 04/16/202405/2021, 08/28/2020 Influenza (Flu) vaccine (1 o f 1 - Influenza standard series) 04/16/2024 Care Teams Marketing Content Coordinator Relationship Specialty Start Date End Date Hannah Sosa MD PCP - General Family Medicine 12/15/19
--- OUTSIDE RECORDS SUMMARY | 2024-07-11 18:37 | XMS_ITS | Encounter Summary ---
Author Organization [facility] Address [address] [place] [address] Care Team Providers Care Insole Tape Stitcher Uco Name Role Phone Unknown, Provider Primary Care Provider Amy chavez Encounter Details Date Type Department Care Team (Late st Contact Info) Description 10/29/2011 Results Only [facility] [phone] Fartun Ashton, HERI [address] [place] [address] Social History Tobacco Use Types Packs/Day Years Used Date Smoking Tobacco: Never Assessed Comments Unknown Sex and Gender Information Value Date Recorded Sex Assigned at Not on file Legal Sex Female 18:52 EST Gender Identity Not on file Sexual Orientation Not on file documented as of this encounter Plan of Treatment Not on file documented as of this encounter Procedures Procedure Name Priority Date/Time Associated Diagnosis Comments PAP TEST- RESULT ONLY Routine 10/29/2011 0:00 EDT documented in this encounter Results * PAP TEST- RESULT ONLY (10/29/2011 0:00 EDT) Pathology Report: CYTOPATHOLOGY REPORT Reports generated via electronic interface contain original data; however they are lacking the format of the original report. Caution should be taken when reading/interpreti ng unformatted reports. Name: ? JESSY PORTER ? Accession #: ? [id number] : ? 1965 (Age: 46) ??F ?Collect Date: ? 10/29/2011 Location: ? [facility] ? Receive Date: ? 10/30/2011 Provider: ?FARTUN ASHTON PHOTO FINISHER Copy to: ? Specimen/Source: ?Pap Test, Cervix/Endocervix, ThinPrep Imaging System with manual evaluation Last Menstrual Period: ? 10/19/11 Hormonal/Contracep tive Status: ? Yes: Microgestin ? SPECIMEN ADEQUACY ? Satisfactory for Evaluation - transformation zone component present GENERAL CATEGORIZATION ? Negative for Intraepithelial Lesion or Malignancy INTERPRETATION ? Shift in dick present suggestive of bacterial vaginosis. ? Document reviewed and electronically signed by: ? ESTEPHANIA Taylor(ASCP) ? Report Date: ??11/02/2011 15:33 End of Report [facility] 10/29/2011 10/30/2011 us Fartun Ashotn ON SITE SOIL EVALUATOR PATHOLOGY ORDERABLES Final Resu lt [facility] [address] [place] [address] documented in this encounter Visit Diagnoses Not on filedocumented in this encounter Care Teams Insole Tape Stitcher Uco Relationship Specialty Start Date End Date Unknown, Provider, PCP - General 11/05/10 documented as of this encounter
--- OUTSIDE RECORDS SUMMARY | 2024-07-11 18:37 | XMS_ITS | Encounter Summary ---
Author Organization [facility] Address [address] [place] [address] Care Team Providers Care Refrigeration Engineering Teacher Name Role Phone Unknown, Provider Primary Care Provider Amy chavez Encounter Details Date Type Department Care Team (Late st Contact Info) Description 04/27/2019 Results Only [facility] [phone] Fartun Ashton, HERI [address] [place] [address] Social History Tobacco Use Types [...] Diagnosis Comments PAP TEST- RESULT ONLY Routine 04/27/2019 0:00 EDT documented in this encounter Results * PAP TEST- RESULT ONLY (04/27/2019 0:00 EDT) Pathology Report: CYTOPATHOLOGY REPORT Reports generated via electronic interface contain original data; however they are lacking the format of the original report. Caution should be taken when reading/interpreti ng unformatted reports. Name: ? GERMANKINGSJESSY ? Accession #: ? [id number] ? : ? 1965 (Age: 53) ??F ?Collect Date: ? 04/27/2019 ? Location: ? [facility] ? Receive Date: ? 04/28/2019 ? Provider: FARTUN ASHTON APRN Copy to: ? Final Report SPECIMEN ADEQUACY ? Satisfactory for Evaluation - transformation zone component absent GENERAL CATEGORIZATION ? Negative for Intraepithelial Lesion or Malignancy ?? Last Menstrual Period: 2018 Hormonal/Contracep tive status: Depo-Provera: 11.01 Other: Additional clinical information: ALL NORMAL PAPS Specimen/Source: ??Pap Test, Cervix/Endocervix, ThinPrep Imaging System with manual evaluation Document reviewed and electronically signed by: ? ESTEPHANIA Raymond(ASCP) ? Report ??Date: 05/03/2019 10:48 HPV with Pap Test ? Date Ordered: ? 05/03/2019 ? Status: ?? Signed Out ?Date Complete: ? 05/04/2019 ? By: ??System Interface ? Date Reported: ? 05/04/2019 ? Interpretation RESULT: Negative for HPV. No E6 or E7 mRNA is detected from HPV types 16,18,31,33,35, 39,45,51,52,56,58, 59,66, and 68 by pathology technician mediated amplification. Comments Document reviewed and electronically signed by: ? System Interface ? Report date: 05/04/2019 By the signature above, the attending physician certifies that he/she has personally conducted a gross and/or microscopic examination of the described specimens and rendered or confirmed the above diagnosis. End of Report [facility] 04/27/2019 04/28/2019 us Fartun Ashton APRN PATHOLOGY ORDERABLES Final Resu lt [facility] [address] [place] [address] documented in this encounter Visit Diagnoses Not on filedocumented in this encounter Care Teams Refrigeration Engineering Teacher Relationship Specialty Start Date End Date Unknown, Provider, PCP - General 11/05/10 documented as of this encounter
--- OUTSIDE RECORDS SUMMARY | 2024-07-11 18:37 | XMS_ITS | Encounter Summary ---
Author Organization [facility] Address [address] [place] [address] Care Team Providers Care Baggage Smasher Name Role Phone Unknown, Provider Primary Care Provider Amy chavez Encounter Details Date Type Department Care Team (Late st Contact Info) Description 03/02/2017 Results Only [facility]- [facility] [phone] Fartun Ashton, HERI [address] [place] [address] Social History Tobacco Use Types [...] Diagnosis Comments PAP TEST- RESULT ONLY Routine 03/02/2017 0:00 EDT documented in this encounter Results * PAP TEST- RESULT ONLY (03/02/2017 0:00 EDT) Pathology Report: CYTOPATHOLOGY REPORT Reports generated via electronic interface contain original data; however they are lacking the format of the original report. Caution should be taken when reading/interpreti ng unformatted reports. Name: ? GERMAN JESSY ? Accession #: ? [id number] ? : ? 1965 (Age: 51) ??F ?Collect Date: ? 03/02/2017 ? Location: ? [facility] ? Receive Date: ? 03/04/2017 ? Provider: FARTUN ASHTON EMBEDDED FIRMWARE ENGINEER Copy to: ? Final Report SPECIMEN ADEQUACY ? Satisfactory for Evaluation - transformation zone component present GENERAL CATEGORIZATION ? Negative for Intraepithelial Lesion or Malignancy ?? Last Menstrual Period: 10/14/16 Hormonal/Contracep tive status: None Other: Previous NIL Pap(s) Specimen/Source: ??Pap Test, Cervix/Endocervix, ThinPrep Imaging System with manual evaluation Document reviewed and electronically signed by: ? Gayle Horner CT(ASCP) ? Report ??Date: 03/12/2017 15:17 HPV with Pap Test ? Date Ordered: ? 03/12/2017 ? Status: ?? Signed Out ?Date Complete: ? 03/15/2017 ? By: ??System Interface ? Date Reported: ? 03/15/2017 ? Interpretation RESULT: Negative for HPV. No E6 or E7 mRNA is detected from HPV types 16,18,31,33,35, 39,45,51,52,56,58, 59,66, and 68 by obedience trainer mediated amplification. Comments Document reviewed and electronically signed by: ? System Interface ? Report date: 03/15/2017 By the signature above, the attending physician certifies that he/she has personally conducted a gross and/or microscopic examination of the described specimens and rendered or confirmed the above diagnosis. End of Report [facility] 03/02/2017 03/04/2017 us Fartun Ashton APRN PATHOLOGY ORDERABLES Final Resu lt [facility] [address] [place] [address] documented in this encounter Visit Diagnoses Not on filedocumented in this encounter Care Teams Baggage Smasher Relationship Specialty Start Date End Date Unknown, Provider, PCP - General 11/05/10 documented as of this encounter
--- OUTSIDE RECORDS SUMMARY | 2024-07-11 18:37 | XMS_ITS | Encounter Summary ---
Author Organization [facility] Address [address] [place] [address] Care Team Providers Care Business Area Director Name Role Phone Unknown, Provider Primary Care Provider Amy chavez Encounter Details Date Type Department Care Team (Late st Contact Info) Description 05/21/2020 Lab Requisition [facility] Pathology & Laboratory Medicine - [facility] [address] [place] [address] Outr Resulting Lab, Provider Social History Tobacco Use Types Packs/Day [...] Procedure Name Priority Date/Time Associated Diagnosis Comments CHLAMYDIA/N. GONORRHOEAE AMPLIFIED NUCLEIC ACID, THINPREP Routine 05/21/2020 10:50 EDT documented in this encounter Results * CHLAMYDIA/N. GONORRHOEAE AMPLIFIED RNA, THINPREP (05/21/2020 10:50 EDT) Neisseria gonorrhoeae Result Negative Negative 05/22/2020 15:11 EDT [facility] Chlamydia trachomatis Result Negative Negative 05/22/2020 15:11 EDT [facility] Papanicolaou smear specimen (specimen) CERVIX UTERI STRUCTURE / Unknown 05/21/2020 10:50 EDT 05/22/2020 7:13 EDT us Provider Outr Resulting Lab MICROBIOLOGY - GENER AL ORDERABLES Final Result [facility] [address] [place] [address] documented in this encounter Visit Diagnoses Not on filedocumented in this encounter Care Teams Business Area Director Relationship Specialty Start Date End Date Unknown, Provider, PCP - General 11/05/10 documented as of this encounter
--- OUTSIDE RECORDS SUMMARY | 2024-07-11 18:37 | XMS_ITS | Encounter Summary ---
Author Organization [facility] Address [address] [place] [address] Care Team Providers Care Bobtail Driver Name Role Phone Unknown, Provider Primary Care Provider Amy chavez Encounter Details Date Type Department Care Team (Late st Contact Info) Description 02/14/2015 Results Only [facility] [phone] Fartun Ashton APRN [address] [place] [address] Social History Tobacco Use Types [...] Diagnosis Comments PAP TEST- RESULT ONLY Routine 02/14/2015 0:00 EDT documented in this encounter Results * PAP TEST- RESULT ONLY (02/14/2015 0:00 EDT) Pathology Report: CYTOPATHOLOGY REPORT Reports generated via electronic interface contain original data; however they are lacking the format of the original report. Caution should be taken when reading/interpreti ng unformatted reports. Name: ? GERMAN JESSY ? Accession #: ? [id number] ? : ? 1965 (Age: 49) ??F ?Collect Date: ? 02/14/2015 ? Location: ? [facility] ? Receive Date: ? 02/18/2015 ? Provider: FARTUN ASHTON CANDY PULLER Copy to: ? Final Report SPECIMEN ADEQUACY ? Satisfactory for Evaluation - transformation zone component present GENERAL CATEGORIZATION ? Negative for Intraepithelial Lesion or Malignancy ?? Last Menstrual Period: 01/28/2015 Other: Additional clinical information: all normal paps Specimen/Source: ??Pap Test, Cervix/Endocervix, ThinPrep Imaging System with manual evaluation Document reviewed and electronically signed by: ? ESTEPHANIA Taylor(ASCP) ? Report ??Date: 02/25/2015 13:40 HPV with Pap Test ? Date Ordered: ? 02/25/2015 ? Status: ?? Signed Out ?Date Complete: ? 02/27/2015 ? By: ??System Interface ? Date Reported: ? 02/27/2015 ? Interpretation RESULT: Negative for HPV. No E6 or E7 mRNA is detected from HPV types 16,18,31,33,35, 39,45,51,52,56,58, 59,66, and 68 by refrigeration service technician mediated amplification. Comments Document reviewed and electronically signed by: ? System Interface ? Report date: 02/27/2015 By the signature above, the attending physician certifies that he/she has personally conducted a gross and/or microscopic examination of the described specimens and rendered or confirmed the above diagnosis. End of Report [facility] 02/14/2015 02/18/2015 us Fartun Ashton CAMP COOK PATHOLOGY ORDERABLES Final Resu lt [facility] [address] [place] [address] documented in this encounter Visit Diagnoses Not on filedocumented in this encounter Care Teams Bobtail Driver Relationship Specialty Start Date End Date Unknown, Provider, PCP - General 11/05/10 documented as of this encounter
--- OUTSIDE RECORDS SUMMARY | 2024-07-11 18:37 | XMS_ITS | Encounter Summary ---
[place] [address] Care Team Providers Care Gardening Manager Name Role Phone Abe Plummer MD Primary Care Provider [phone] Encounter Details Date Type Department Care Team (Late st Contact Info) Description 11/02/2011 [place] [phone] Delmer Ortega PA [facility] [place] [address] Social History Tobacco Use Types Packs/Day Years [...] documented as of this encounter Miscellaneous Notes * Telephone Encounter - Radha Rodriguez - 11/02/2011 10:45 AM EDT Maury Broussard, the Nurse Case Quin called Wednesday afternoon. She feels that the Sewer Builder is not going to be happy with paying for a WRAP when the patient is working FT with no restrictions. Do you want me to cancel the WRAP appointment on 12-08? Thank you, Radha documented in this encounter Plan of Treatment Not on file documented as of this encounter Visit Diagnoses Not on filedocumented in this encounter Care Teams Gardening Manager Relationship Specialty Start Date End Date Abe Plummer MD PCP - General 10/07/11 12/14/19 documented as of this encounter
--- OUTSIDE RECORDS SUMMARY | 2024-07-11 18:37 | XMS_ITS | Encounter Summary ---
Author Organization [facility] Address [facility] [place] [address] Care Team Providers Care Port Surveyor Name Role Phone Abe Plummer MD Primary Care Provider [phone] Encounter Details Date Type Department Care Team (Latest Contact Info) Description 10/07/2011 3:44 PM EST - 10/07/2011 11:59 PM EST Hospital Encounter XRay at [address] [place] [address] Mechanical low back pain Social History Tobacco Use Types Packs/Day Years [...] Start Date End Date omeprazole (PRILOSEC) 40 mg capsuleIndications:ga stroesophageal reflux disease Take 40 mg by mouth daily. Indications: Gastroesophageal Reflux multivitamin (THERAGRAN) tablet Take 1 tablet by mouth daily. documented as of this encounter Plan of Treatment Not on file documented as of this encounter Procedures Procedure Name Priority Date/Time Associated Diagnosis Comments XR LUMBAR SPINE 2 OR 3 VIEWS Routine 10/07/2011 3:54 PM EST Mechanical low back pain documented in this encounter Results * XR lumbar spine 2 or 3 views (10/07/2011 3:54 PM EST) Anatomical Region Laterality Modality L-spine N/A Radiographic Elma ging 10/07/2011 3:54 PM EST Impressions 10/08/2011 8:33 AM EST IMPRESSION: ?? No subluxation. No instability. L5-S1 facet arthropathy. Narrative 10/08/2011 8:33 AM EST LUMBAR SPINE, AP AND FLEXION/EXTENSION LATERAL IMAGES: HISTORY: ??pain COMPARISON STUDY: ??None. FINDINGS: ??There are five aun-qyq-pbbezre lumbar-type vertebral bodies. No spondylolisthesis or subluxation. Flexion/extension images reveal no instability. There is L5-S1 facet arthropathy. The pedicles are intact. Procedure Note Romy Adkins MD - 10/08/2011 LUMBAR SPINE, AP AND FLEXION/EXTENSION LATERAL IMAGES: HISTORY: pain COMPARISON STUDY: None. FINDINGS: There are five fvs-hus-ilblcbv lumbar-type vertebral bodies. No spondylolisthesis or subluxation. Flexion/extension images reveal no instability. There is L5-S1 facet arthropathy. The pedicles are intact. IMPRESSION IMPRESSION: No subluxation. No instability. L5-S1 facet arthropathy. Don Carmichael MD IMG DX ORDERABLES documented in this encounter Visit Diagnoses Diagnosis Mechanical low back pain Lumbago documented in this encounter Care Teams Port Surveyor Relationship Specialty Start Date End Date Abe Plummer MD PCP - General 10/07/11 12/14/19 documented as of this encounter
--- OUTSIDE RECORDS SUMMARY | 2024-07-11 18:37 | XMS_ITS | Encounter Summary ---
Author Organization [facility] [place] [address] Care Team Providers Care Burn Out Tender Lace Name Role Phone Abe Plummer MD Primary Care Provider [phone] Reason for Visit * Consultation (Routine) - Specialty Diagnoses / Procedures Referred By Temo cade Referred To Contact Dermatology Diagnoses Disorder of the skin and subcutaneous tissue, unspecified Skin Lesion over left scapula Procedures Consult Hannah Sosa MD [facility] [place] [address] Júnior Block MD [address] [place] [address], [facility] [place] [address] Referral ID Status Reason Start Date Expiration Date V isits Requested Visits Authorized [id number] Consult, Test & Treat PCP Updated and/or Approved 11/23/2019 05/24/2020 6 6 Encounter Details Date Type Department Care Team (Late st Contact Info) Description 12/12/2019 9:00 AM EDT TH Visit (TeleHealth) Dermatology at [address] [phone] Júnior Block MD [address] [place] [address], [facility] [place], [place] [id number] Nevus Social History Tobacco Use Types Packs/Day Years [...] documented as of this encounter Progress Notes * Júnior Block MD - 12/12/2019 9:00 AM [...] cm tender sore friable lesion about a centimeter in diameter which was brown in color. She also sends us photographs which seem to demonstrate aflesh toned nodule with a central punctum suggestive of a follicular cyst. Her Bertrand saw the lesion and was concerned about skin cancer prompting the visit to Dr. Sosa. Patient denies any personal or family history of skin cancer or melanoma. Assessment [...] documented as of this encounter Visit Diagnoses Diagnosis Nevus Benign neoplasm of skin, site unspecified documented in this encounter Care Teams Burn Out Tender Lace Relationship Specialty Start Date End Date Abe Plummer MD PCP - General 10/07/11 12/14/19 documented as of this encounter
--- OUTSIDE RECORDS SUMMARY | 2024-07-11 18:37 | XMS_ITS | Encounter Summary ---
Author Organization [facility] [place] [address] Care Team Providers Care Microbiology Coordinator Name Role Phone Hai Voss MD Primary Care Provider [phone] Encounter Details Date Type Department Care Team ([facility] st Contact Info) Description 07/18/2010 1:45 PM EST Office Visit [address] [phone] Shamar Sahni MD [facility] [place] [address] Social History Tobacco Use Types Packs/Day Years Used Date Smoking Tobacco: Never Assessed Sex and Gender Information Value Date Recorded Sex Assigned at Not on file Gender Identity Female 12/12/2019 7:20 AM EDT Sexual Orientation Not on file documented as of this encounter Plan of Treatment Not on file documented as of this encounter Visit Diagnoses Not on filedocumented in this encounter Care Teams Microbiology Coordinator Relationship Specialty Start Date End Date Hai Voss MD [address] [place] [phone] PCP - General 07/14/10 10/06/11 documented as of this encounter
--- OUTSIDE RECORDS SUMMARY | 2024-07-11 18:37 | XMS_ITS | Encounter Summary ---
[place] [address] Care Team Providers Care Apple Solutions Consultant Name Role Phone Hannah Sosa MD Primary Care Provider + Encounter Details Date Type Department Care Team (Late st Contact Info) Description 08/14/2020 12:00 PM EST Office Visit Occupational Therapy at [facility] [address] [place] [address] Lobito Kelly, OT [facility] & [place] [address] Pain in left elbow Social History Tobacco Use Types Packs/Day Years [...] as of this encounter Miscellaneous Notes * Initial Evaluation - Lobito Kelly OT - 08/14/2020 12:00 PM EST Please refer to scan documents for a copy of the functional capacity evaluation report. documented in this encounter Plan of Treatment Not on file documented as of this encounter Visit Diagnoses Diagnosis Pain in left elbow Pain in joint, upper arm documented in this encounter Care Teams [employer] Consultant Relationship Specialty Start Date End Date Hannah Sosa MD PCP - General Family Medicine 12/15/19 documented as of this encounter
--- OUTSIDE RECORDS SUMMARY | 2024-07-11 18:37 | XMS_ITS | Encounter Summary ---
Author Organization [facility] Address [address] [place] [address] Care Team Providers Care Assistant Manager Name Role Phone Unknown, Provider Primary Care Provider Amy chavez Encounter Details Date Type Department Care Team (Late st Contact Info) Description 11/08/2012 Results Only [facility]- [facility] [phone] Fartun Ashton, HERI [address] [place] [address] Social History Tobacco Use Types [...] Diagnosis Comments PAP TEST- RESULT ONLY Routine 11/08/2012 0:00 EDT documented in this encounter Results * PAP TEST- RESULT ONLY (11/08/2012 0:00 EDT) Pathology Report: CYTOPATHOLOGY REPORT Reports generated via electronic interface contain original data; however they are lacking the format of the original report. Caution should be taken when reading/interpreti ng unformatted reports. Name: ? GERMAN JESSY ? Accession #: ? [id number] ? : ? 1965 (Age: 47) ??F ?Collect Date: ? 11/08/2012 ? Location: ? [facility] ? Receive Date: ? 11/09/2012 ? Provider: FARTUN ASHTON CARRY OUT CLERK AND SHELF STOCKER Copy to: ? Final Report SPECIMEN ADEQUACY ? Satisfactory for Evaluation - transformation zone component present GENERAL CATEGORIZATION ? Negative for Intraepithelial Lesion or Malignancy INTERPRETATION ? Shift in dick present suggestive of bacterial vaginosis. Last Menstrual Period: 2010 Hormonal/Contracep tive status: Yes: microgestin fe Specimen/Source: ??Pap Test, Cervix/Endocervix, ThinPrep Imaging System with manual evaluation Document reviewed and electronically signed by: ? Elenita Desai, ESTEPHANIA(ASCP)(IAC) ? Report ??Date: 11/15/2012 08:56 HPV with Pap Test ? Date Ordered: ? 11/15/2012 ? Status: ?? Signed Out ?Date Complete: ? 11/17/2012 ? By: ??System Interface ? Date Reported: ? 11/17/2012 ? Interpretation RESULT: Negative for HPV. No E6 or E7 mRNA is detected from HPV types 16,18,31,33,35, 39,45,51,52,56,58, 59,66, and 68 by acid strength inspector mediated amplification. Comments Document reviewed and electronically signed by: ? System Interface ? Report date: 11/17/2012 By the signature above, the attending physician certifies that he/she has personally conducted a gross and/or microscopic examination of the described specimens and rendered or confirmed the above diagnosis. End of Report [facility] 11/08/2012 11/09/2012 us Fartun Ashton LACE WEAVER PATHOLOGY ORDERABLES Final Resu lt [facility] [address] [place] [address] documented in this encounter Visit Diagnoses Not on filedocumented in this encounter Care Teams Assistant Manager Relationship Specialty Start Date End Date Unknown, Provider, PCP - General 11/05/10 documented as of this encounter
--- OUTSIDE RECORDS SUMMARY | 2024-07-11 18:37 | XMS_ITS | Encounter Summary ---
Author Organization [facility] [place] [address] Care Team Providers Care Lawn Technician Name Role Phone Hai Voss MD Primary Care Provider [phone] Encounter Details Date Type Department Care Team ([facility] st Contact Info) Description 08/19/2010 9:45 AM EST Office Visit [address] [phone] Shamar Sahni MD [facility] [place] [address] Social History Tobacco Use Types Packs/Day Years [...] on filedocumented in this encounter Care Teams Lawn Technician Relationship Specialty Start Date End Date Hai Voss MD [address] [place] [phone] PCP - General 07/14/10 10/06/11 documented as of this encounter
--- OUTSIDE RECORDS SUMMARY | 2024-07-11 18:37 | XMS_ITS | Encounter Summary ---
Author Organization [facility] Address [address] [place] [address] Care Team Providers Care Net Trainer Name Role Phone Unknown, Provider Primary Care Provider Amy chavez Encounter Details Date Type Department Care Team (Late st Contact Info) Description 03/03/2016 Results Only [facility]- [facility] [phone] Fartun Ashton, HERI [address] [address] [place] [address] Social History Tobacco Use Types [...] Diagnosis Comments PAP TEST- RESULT ONLY Routine 03/03/2016 0:00 EDT documented in this encounter Results * PAP TEST- RESULT ONLY (03/03/2016 0:00 EDT) Pathology Report: CYTOPATHOLOGY REPORT Reports generated via electronic interface contain original data; however they are lacking the format of the original report. Caution should be taken when reading/interpreti ng unformatted reports. Name: ? GERMANJESSY ? Accession #: ? [id number] ? : ? 1965 (Age: 50) ??F ?Collect Date: ? 03/03/2016 ? Location: ? [facility] ? Receive Date: ? 03/04/2016 ? Provider: FARTUN ASHTON STARTING GATE DRIVER Copy to: ? Final Report SPECIMEN ADEQUACY ? Satisfactory for Evaluation - transformation zone component absent GENERAL CATEGORIZATION ? Negative for Intraepithelial Lesion or Malignancy ?? Last Menstrual Period: 02/23/16 Other: Previous NIL Pap(s): All normal Paps Specimen/Source: ??Pap Test, Cervix/Endocervix, ThinPrep Imaging System with manual evaluation Document reviewed and electronically signed by: ? Silvestre Pena, CT(ASCP) ? Report ??Date: 03/16/2016 10:40 HPV with Pap Test ? Date Ordered: ? 03/16/2016 ? Status: ?? Signed Out ?Date Complete: ? 03/18/2016 ? By: ??System Interface ? Date Reported: ? 03/18/2016 ? Interpretation RESULT: Negative for HPV. No E6 or E7 mRNA is detected from HPV types 16,18,31,33,35, 39,45,51,52,56,58, 59,66, and 68 by market gardener mediated amplification. Comments Document reviewed and electronically signed by: ? System Interface ? Report date: 03/18/2016 By the signature above, the attending physician certifies that he/she has personally conducted a gross and/or microscopic examination of the described specimens and rendered or confirmed the above diagnosis. End of Report [facility] 03/03/2016 03/04/2016 us Fartun Ashton PROPOSAL EDITOR PATHOLOGY ORDERABLES Final Resu lt [facility] [address] [place] [address] documented in this encounter Visit Diagnoses Not on filedocumented in this encounter Care Teams Net Trainer Relationship Specialty Start Date End Date Unknown, Provider, PCP - General 11/05/10 documented as of this encounter
--- OUTSIDE RECORDS SUMMARY | 2024-07-11 18:37 | XMS_ITS | Encounter Summary ---
[place] [address] Care Team Providers Care Valve Repairer Reclamation Name Role Phone Hai Voss MD Primary Care Provider [phone] Encounter Details Date Type Department Care Team (Late st Contact Info) Description 09/30/2011 Orders [place] [address] Delmer Ortega PA [facility] [place] [address] Social History Tobacco Use Types Packs/Day Years [...] Procedure Name Priority Date/Time Associated Diagnosis Comments FILM LIBRARY STORAGE ONLY MR SHOULDER Routine 09/30/2011 5:33 PM EST documented in this encounter Results * FILM LIBRARY- STORAGE ONLY MR SHOULDER (09/30/2011 5:33 PM EST) 09/30/2011 5:33 PM EST Narrative RAD - 01/09/2014 1:48 PM EDT This is a non-reportable exam. Procedure Note Salas Falk - 01/09/2014 This is a non-reportable exam. Delmer COLEMAN IM FILM LIBRARY ORD ERABLES RAD [address] [employer] [place] [address] documented in this encounter Visit Diagnoses Not on filedocumented in this encounter Care Teams Valve Repairer Reclamation Relationship Specialty Start Date End Date Hai Voss MD [address] [place] [phone] PCP - General 07/14/10 10/06/11 documented as of this encounter
--- OUTSIDE RECORDS SUMMARY | 2024-07-11 18:37 | XMS_ITS | Referral Summary ---
Author Organization [facility] Address [address] [place] [address] Care Team Providers Care Workers' Compensation Claims Examiner Name Role Phone Unknown, Provider Primary Care Provider Unava ilable Social History Tobacco Use Types Packs/Day Years Used Date Smoking Tobacco: Never Assessed Comments Unknown Sex and Gender Information Value Date Recorded Sex Assigned at Not on file Legal Sex Female 18:52 EST Gender Identity Not on file Sexual Orientation Not on file Plan of Treatment Not on file Care Teams Workers' Compensation Claims Examiner Relationship Specialty Start Date End Date Unknown, Provider, PCP - General 11/05/10
--- OUTSIDE RECORDS SUMMARY | 2024-07-11 18:37 | XMS_ITS | Data Portability ---
Author Organization [place] - [facility], [facility] Address [address] [place] [address] Assessment Encounter Date Assessment Date Assessment LastModified by Organization Details LastModified Time 11/03/2023 11/03/2023 Jessy had what is consistent with an ocular migraine last week. Associated with elevated blood pressure that has come down over the past several days but still elevated. We will start medication management with amlodipine 5 mg. Reviewed side effect profile and mechanism of action. She will monitor bp 1-2 times weekly. emerita Not available 11/03/2023 07:47:30 Plan of Treatment Reminders Order Date Submit Date Provider Last Modified By Organization Details Last Modified Time Details Appointments Annual Wellness Exam 2023 12:00P M LISA BARBOZA Not available Not available Not available Follow Up 2024 01:00P M LISA BARBOZA Not available Not available Not available Lab lipid panel, serum - 1 PST obtained without issue 2023 024 [id number] [facility] (Registration ), [address] [place] [address] [place], [address], 07/11/2024 14:38:45 Referral None recorded. Procedures None recorded. Surgeries None recorded. 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 The visual change resolved within about 30 minutes and the headache resolved in about an hour. The pt. was also recorded to have high blood pressure at the time of the visual changes of 180/124 which her BP improved over 2 other measureme nts of the visit , being sent for imaging to rule out stroke, hemorrage , vascular malformat ion. She had no neurologi erin deficits on exam including speech, motor strength, visual singh, gait and balance completel y normal. Ddx includes TIA, glaucoma, new migraine headache. Pt. had 2015 episode at medical appt. of her where she had sudden onset aphasia which resolved in an hour and was seen at [facility]. Her mother notably was from [place] at same age as pt., 58-years. She has mild HLD and HTN historica lly which she was trying to improve on w/diet and exercise after review of her normal PCP last note. Pt. refused to go to ED despite strong recommend ations to r/o acute stroke. 2023 024 [email or web address] [facility], [address], [place], [address], 10/29/2023 13:18:53 Medication Orders amlodipin e 5 mg tablet 2023 024 [id number], [address] [place] [address], [id number], 11/03/2023 07:43:03 Patient TargetsNo targets recorded. Patient Instructions Encounter Date Encounter Id Patient Instructions Last Modified By Organization Details Last Modified Time 10/27/2023 [id number] I am pete brooke you go to the ED to be evaluated. [email or web address] Not available 10/27/2023 16:36:02 Reason for Referral None Reported. Results Created Date Observation Date Name Description Value Unit Range Abnormal Flag Note LastModifiedBy Organization Detail LastModifiedTime 12/06/19 24 12/06/2023 MRI imagi ng repor t Garfield t Name: Lucien Long Unit #: [id number] Loc: DI Orderi ng Provid er: Peg Vivas Accoun t #: [id number] Status : REG CLI Primar y Care Provid er: Talib Sosa U. Date of Exam: 0 4 Sex: F Admiss ion Date: : 1964 Age: 58 Exam(s ) MR BRAIN WO EXAM: MR BRAIN WO CLINIC AL HISTOR Y: VISUAL DISTUR BANCE H53.9 TECHNI QUE: Multip lanar multis equenc e MRI of the brain was perfor med. COMPAR LEVIN: No priors for compar elvin. FINDIN GS: VENTRI CLES AND EXTRA AXIAL SPACES : Normal in size and morpho logy for the patien t's age. MIDLIN E SHIFT: None. CEREBR AL PARENC HYMA: No focus of restri cted diffus ion to sugges t acute infarc t. No space- occupy ing lesion identi fied. HEMORR ALYSHA: None. BRAINS TEM/CE REBELL UM: Normal . CALVAR IUM: Normal . VISUAL IZED PARANA DUY SINUSE S/MAST OIDS:C lear. [place] : Normal flow void. PITUIT ROBBIE GLAND: Unrema rkable . There is no eviden ce of a supras ellar mass. OTHER FINDIN GS: None. IMPRES SANDRA: Unrema rkable MRI of the brain. DATA REPOSI TORY: Roxi sanchez By: Peg Vivas CC: ------ ------ ------ ------ ------ ------ ------ ------ ------ ------ ------ ------ - Dictat ed By: Albino Alonso M.D. 1307 1307 Transc ribed By: Albino Alonso 1307 This is privil eged, confid ential inform ation intend ed only for the provid er named. Any use or distri bution by any person other than this provid er is strict ly prohib ited. If you receiv e this report in error, please notify us immedi ately at and return the origin al report to us at the addres s above. Thank- you. emerita [address] [place], [address] 12/07/2023 17:51:25 12/06/19 24 12/06/2023 MRI imagi ng gabby cade Sunivalerie cade Name: Lucien Long Unit #: [id number] Loc: DI Orderi ng Provid er: Peg Vivas Accoun t #: [id number] Status : REG CLI Primar y Care Provid er: Talib Sosa U. Date of Exam: 0 4 Sex: F Admiss ion Date: : 1964 Age: 58 Exam(s ) MR ANGIO BRAIN WO CLINIC AL HISTOR Y: VISUAL DISTUR BANCE H53.9. TECHNI QUE: Multip lanar multis equenc e MRA of the brain was perfor med. COMPAR ELVIN: No exams were availa ble for compar elvin FINDIN GS: Caroti d Arteri es: No aneury sm, occlus ion or signif icant stenos is. Anteri or Cerebr al Arteri es: Right: No aneury sm, occlus ion or signif icant stenos is. Left: No aneury sm, occlus ion or signif icant stenos is. Middle Cerebr al Arteri es: Right: No aneury sm, occlus ion or signif icant stenos is. Left: No aneury sm, occlus ion or signif icant stenos is. Drying Equipment Operator ior Cerebr al Arteri es: Right: No aneury sm, occlus ion or signif icant stenos is. The right plywood factory worker ior cerebr al artery arises from the plywood factory worker ior commun icatin g artery which is a normal varian t. Left: No aneury sm, occlus ion or signif icant stenos is. Verteb ral Arteri es: Right: No aneury sm, occlus ion or signif icant stenos is. Left: No aneury sm, occlus ion or signif icant stenos is. Basila r Artery : No aneury sm, occlus ion or signif icant stenos is. IMPRES SANDRA: Normal MRA examin ation of the [place] . DATA REPOSI TORY: Ordere d By: Ortega, Jonath an CC: ------ ------ ------ ------ ------ ------ ------ ------ ------ ------ ------ ------ - Dictat ed By: Albino Alonso M.D. 1309 1309 Transc ribed By: Albino Alonso 1309 This is privil eged, confid ential inform ation intend ed only for the provid er named. Any use or distri bution by any person other than this provid er is strict ly prohib ited. If you receiv e this report in error, please notify us immedi ericly at [phone] and return the origin al report to us at the addres s above. Thank- you. [email or web address] [place], [place] [address] [facility] [address], [place], [address] 12/07/2023 17:51:26 12/06/19 24 12/06/2023 MRI imagi ng gabby cade Name: Lucien Long Unit #: [id number] Loc: DI Orderi ng Provid er: Peg Vivas Accoun t #: [id number] Status : REG CLI Primar y Care Provid er: Talib Sosa Date of Exam: 0 4 Sex: F Admiss ion Date: : 1964 Age: 58 Exam(s ) MR ANGIO NECK WO EXAM: MR ANGIO NECK WO CLINIC AL HISTOR Y: VISUAL DISTUR BANCE H53.9. TECHNI QUE: Multip lanar multis equenc e MRA of the Neck was perfor med. COMPAR ELVIN: No exams were availa ble for compar elvin FINDIN GS: Common Caroti d: Right: No dissec tion, occlus ion or signif icant stenos is. Left: No dissec tion, occlus ion or signif icant stenos is. Application Defense Manager al Caroti d: Right: No eviden ce of occlus ion or signif icant stenos is. Left: No eviden ce of occlus ion or signif icant stenos is. Storage Manager al Caroti d: Right: No dissec tion, occlus ion or signif icant stenos is. Left: No dissec tion, occlus ion or signif icant stenos is. Verteb ral Artery : Right: No dissec tion, occlus ion or signif icant stenos is. Left: No dissec tion, occlus ion or signif icant stenos is. The visual ized parasp inal soft tissue s are unrema rkable . IMPRES SANDRA: No eviden ce of dissec tion, occlus ion or signif icant stenos is. DATA REPOSI TORY: Ordere d By: Peg Vivas CC: ------ ------ ------ ------ ------ ------ ------ ------ ------ ------ ------ ------ - Dictat ed By: Albino Alonso M.D. 1311 1311 Transc ribed By: Albino Alonso 1311 This is privil eged, confid ential inform ation intend ed only for the provid er named. Any use or distri bution by any person other than this provid er is strict ly prohib ited. If you receiv e this report in error, please notify us immedi ately at and return the origin al report to us at the addres s above. Thank- you. emerita [facility] [address], [place], [address] 12/07/2023 17:51:26 04/30/20 24 03/06/2022 MAMMO , diagn ostic No observ ation record ed. [email or web address] Not Available 04/30 23:47:03 04/30/20 24 06/04/2023 imagi ng/di agnos tic resul t No observ ation record ed. [email or web address] Not Available 04/30 23:47:05 04/30/20 24 06/04/2023 imagi ng/di agnos tic resul t No observ ation record ed. [email or web address] Not Available 04/30 23:47:08 04/30/20 24 06/04/2023 imagi ng/di agnos tic resul t No observ ation record ed. [email or web address] Not Available 04/30 23:47:10 04/30/20 24 06/04/2023 imagi ng/di agnos tic resul t No observ ation record ed. [email or web address] Not Available 04/30 23:47:11 Result Notes None recorded. Problems Name Problem SNOMED Code Status Onset Date Resolution Date Notes Provider Name and Address Organization Details Recorded Time Pain of right shoulder joint 741117522778 75965 Active [address], [place], [address], [facility] 4 12:45:11 Migraine without aura, not refractor y 332508196 Active 2022 Problem Code: G43.009; Problem Code Type: ICD-10; [address], [place], [address], [facility] 4 12:11:39 Gastroeso phageal reflux disease without esophagit is 475930002 Active 2022 Problem Code: K21.9; Problem Code Type: ICD-10; [address], [place], [address], [facility] 4 12:11:00 Essential hypertens ion 70139049 Active 2022 3 - Comments only - Juan Carlos Pardo RPA - Trial of conservat césar measures to lower blood pressure. She is committin g to restartin g an exercise routine with healthier nutrition al habits. Advised to check blood pressure couple times weekly for the next few weeks and then we will review numbers. She does not add sodium to food Problem Code: I10; Problem Code Type: ICD-10; [address], [place], [address], [facility] 4 12:10:35 Hyperlipi marvel 68993732 Active 2022 3 - Comments only - Juan Carlos Pardo RPA - With high HDL. Her LDL has been over 190. Statin recommend ed. She would like to work harder on nutrition . Recommend ed Mediterra nean diet. Fasting lipids prior to physical exam in 6 months. Problem Code: E78.5; Problem Code Type: ICD-10; [address], [place], [address], [facility] 4 12:11:20 Menopause present 719145741 Active 2022 3 - Comments only - Juan Carlos Pardo RPA - Postmenop ausal. Low-dose estrogen in the past did not help. Major depressio n with Depo shot. Trial of low-dose SSRI to start. Reviewed side effect profile and mechanism of action. Problem Code: N95.1; Problem Code Type: ICD-10; [address], [place], [address], [facility] 4 12:11:33 Low back pain 508669999 Active 2022 Problem Code: M54.50; Problem Code Type: ICD-10; [address], [place], [address], [facility] 4 12:12:07 Problem Notes None recorded. Procedures Surgical History Date Name Laterality Status Provider Name and Address Organization Details Recorded Time 4 extraction of cataract completed [address], [place], [address], [facility] 01/15/2024 08:15:56 3 Most Recent Mammogram completed TREVOR SAMANIEGO RN [facility] 07/11/2024 09:14:22 0 Date of Last Pap Smear completed TREVOR SAMANIEGO RN [facility] 07/11/2024 09:13:34 Imaging Results Imaging Date Name Status LastModified by [facility] Details LastModified Time 12/06/2023 MRI imaging report completed [address] [place], [address] 12/07/2023 17:51:25 12/06/2023 MRI imaging report completed [email or web address] [place], [address] 12/07/2023 17:51:26 12/06/2023 MRI imaging report completed [email or web address] [place], [address] 12/07/2023 17:51:26 03/06/2022 MAMMO, diagnostic completed Information not available 04/30/2024 23:47:03 06/04/2023 imaging/diagnos tic result completed Information not available 04/30/2024 23:47:05 06/04/2023 imaging/diagnos tic result completed Information not available 04/30/2024 23:47:08 06/04/2023 imaging/diagnos tic result completed Information not available 04/30/2024 23:47:10 06/04/2023 imaging/diagnos tic result completed Information not available 04/30/2024 23:47:11 Procedure Notes None recorded. Medical Equipment None Reported. Allergies Allergen ID Allergen Name Allergen Category Reaction Reaction Severity Criticality Documentation Date Start Date Code Code System Note Provider Name and Address Organization Details Recorded Time 86167 sulfameth oxazole medicatio n hives Not available Not available 08/27/20232022 12252 RxNorm Not Available [facility] 05:10:01 50727 Medicinal product containin g penicilli n and acting as antibacte rial agent (product) medicatio n rash Not available Not available 08/27/20232022 22181 05 SNOMED Hives TREVOR SAMANIEGO RN [facility], [facility] 11:38:49 63847 Bactrim medicatio n rash Not available Not available 07/11/2024 14536 9 RxNorm TREVOR SAMANIEGO RN [facility], [facility] 4 11:38:35 Medications Name Sig Start Date Stop Date Status Note LastModified by Organization Details LastModified Time amlodipine 5 mg tablet Take 1 tablet every day by oral route. active Not Available Not Available No t Available omeprazole 40 mg capsule,del ayed release Take 1 capsule by mouth once a day 09/07 completed Not Available Not Available Not Available estradiol 0.025 mg/24 hr weekly transdermal patch APPLY 1 PATCH TOPICALLY TO THE SKIN EVERY WEEK active Not Available Not Available No t Available neomycin-po lymyxin-dex ameth 3.5 mg/mL-10,00 0 unit/mL-0.1 % eye drops INSTILL 1 DROP INTO BOTH EYES FOUR TIMES A DAY DIRECTED 09/07 completed Not Available Not Available Not Available omeprazole 20 mg capsule,del ayed release TAKE 1 CAPSULE BY MOUTH EVERY DAY active Not Available Not Available No t Available escitalopra m 10 mg tablet Take 1 tablet every day by oral route. active Not Available Not Available No t Available escitalopra m 5 mg tablet Take 1 tablet by mouth once a day 10/11 completed Not Available Not Available Not Available Vitamin D3 50 mcg (2,000 unit) capsule Take 1 capsule by mouth once a day active Not Available Not Available No t Available Vitals Date Recorded Body height Heart rate Oxygen saturation Oxygen saturation in Arterial blood by Pulse oximetry Respiratory rate Systolic blood pressure Diastolic blood pressure Provider Name and Address Organization Details Last Updated DateTime 4 169.189 4 cm 81 /min 98 % 98 % 16 /min 180 mm[Hg] 124 mm[Hg] VIRGINIA CARPENTER [address], [place], [address], [facility] 4 16:07:45 Date Recorded Body height Body mass index (BMI) Body weight Body temperature Respiratory rate Heart rate Systolic blood pressure Diastolic blood pressure Provider Name and Address Organization Details Last Updated DateTime 4 169.19 cm 26.2 kg/m2 94129.4 6 g 97.3 [degF] 16 /min 72 /min 150 mm[Hg] 102 mm[Hg] LEDY GRAVES RN [facility] 4 07:22:49 Date Recorded Body height Body mass index (BMI) Body weight Body temperature Respiratory rate Oxygen saturation Oxygen saturation in Arterial blood by Pulse oximetry Heart rate Systolic blood pressure Diastolic blood pressure Provider Name and Address Organization Details Last Updated DateTime 4 169.19 cm 25.8 kg/m2 66684.8 4 g 98.6 [degF] 16 /min 98 % 98 % 98 /min 124 mm[Hg] 74 mm[Hg] ANTWAN ESTEBAN RN [facility] 13:47:52 Date Recorded Body height Body mass index (BMI) Provider Name and Address Organization Details Last Updated DateTime 07/11/2024 169.19 cm 25.2 kg/m2 DERICK DE LEON [facility] [address], [place], [address], [facility] 07/11/2024 12:44:37 Date Recorded Body weight Body temperature Oxygen saturation Oxygen saturation in Arterial blood by Pulse oximetry Heart rate Respiratory rate Systolic blood pressure Diastolic blood pressure Provider Name and Address Organization Details Last Updated DateTime 4 44150.9 1 g 98.1 [degF] 96 % 96 % 78 /min 14 /min 130 mm[Hg] 82 mm[Hg] TREVOR SAMANIEGO RN [facility] 11:42:09 Social History Question Answer Notes LastModified by Organizat ion Details LastModified Time Tobacco Smoking Status Former Smoker LEDY GRAVES RN null, [facility] 11/03/2023 07:23:28 Do You Have An Advance Directive? No Information n ot available 07/11/2024 What Is Your Code Status? Full Code Information not available 07/11/2024 What Type Of Diet Are You Following? REGULAR Information n ot available 07/11/2024 How Many Times Per Week Do You Exercise? 3-4 Times Per Week Pt Has Home Gym Information not available 07/11/2024 When Did You Quit Smoking? 11-15yearss meng mays Quit Aug 2008 Information not available 07/11/2024 Would You Say That, In General, Your Health Is Very Good Information not available 07/11/2024 How Often Does Anyone, Including Family, Physically Hurt You? Never Information not available 07/11/2024 How Often Does Anyone, Including Family, Insult Or Talk Down To You? Never Information no t available 07/11/2024 How Often Does Anyone, Including Family, Threaten You With Harm? Never Information not available 07/11/2024 How Often Does Anyone, Including Family, Scream Or Curse At You? Never Information not available 07/11/2024 Within The Past 12 Months, You Worried That Your Food Would Run Out Before You Got Money To Buy More. Never True Information n ot available 07/11/2024 Within The Past 12 Months, The Food You Bought Just Didn't Last And You Didn't Have Money To Get More. Never True Information n ot available 07/11/2024 How Hard Is It For You To Pay For The Very Basics Like Food, Housing, Medical Care, And Heating? Would You Say It Is: Not Hard At All Information not available 07/11/2024 In The Past 12 Months, Has Lack Of Reliable Transportation Kept You From Medical Appointments, Meetings, Work Or From Getting Things Needed For Daily Living? No Information not available 07/11/2024 What Is Your Housing Situation Today? I Have Housing. Information not available 07/11/2024 How Often In The Past Year Have You Used Marijuana (including Smoking, Vaping, Dabbing, Or Edibles)? Never Information not available 07/11/2024 How Often In The Past Year Have You Used Prescription Medications That Were Not Prescribed To You? Never Information n ot available 07/11/2024 How Often In The Past Year Have You Taken Your Own Prescription Medication More Than The Way It Was Prescribed Or For Different Reasons Than Its Intended Purpose? Never Information no t available 07/11/2024 How Often In The Past Year Have You Used Other Drugs (for Example, Heroin, Cocaine, Meth, Salvia, Inhalants)? Never Information not available 07/11/2024 Have You Ever Used IV Drugs? No Information not available 07/11/2024 Date Of Most Recent SBINS 07/11/2024 Information not available 07/11/2024 Do You Have A Medical Power Of Route Delivery Manager? No Information not available 07/11/2024 What Was The Date Of Your Most Recent Tobacco Screening? 07/11/2024 Information not available 07/11/2024 Has Tobacco Cessation Counseling Been Provided? No Information not available 07/11/2024 Do You Have Any Dietary Restrictions? No Information not available 07/11/2024 Do You Or Have You Ever Used Any Other Forms Of Tobacco Or Nicotine? No [email or web address] Information not available 11/03/2023 Sex: Female Functional Status Question Answer Note LastModified by Organizat ion Details LastModified Time What is your exercise level? Occasional Information not available 07/11/2024 Mental Status None recorded. Family History Relationship Description Onset Age of this Age Resolved Age Notes LastModified by Organization Details LastModified Time Father Family history of Respiratory disease [email or web address] Not available 08/27/2023 05:14:41 Father Family history of malignant neoplasm of lung [email or web address] Not available 08/27/2023 05:14:41 Mother Family history of ischemic heart disease at age 57 [email or web address] Not available 08/27/2023 05:14:41 Medical History Condition Response Muscle, Joint, or Bone Problems N Bleeding Disorder N Vision or Eye Problems Y Seizures/Epilepsy N Breast Cancer N Cancer N Stroke Y Diverticulitis N Lung Disease N Substance Abuse N Multiple Sclerosis N Bladder or Kidney Problems N Neurologic Disorder N Brain Injury N Anesthesia Complications N Liver Disease N Psychiatric/Mental Health Condition N Heart Disease N Gastrointestinal Disease N Pulmonary Embolism N Pre-Eclampsia N Gynecological History Statement/Question Response Date of Last Pap Smear 05/21/2020 Date of Last Colonoscopy Most Recent Mammogram 07/26/2023 Obstetrics History GPAL:G 0 P 0 0 0 0 Immunizations Vaccine Type Date Status Provider Name and Address Organization Details Recorded Time zoster recombinant 04/07/2024 completed TREVOR DIEZ RN [facility], [facility] 04/07/2024 15:17:55 Tdap 08/16/2008 completed Not Available [facility] 05:31:07 Tdap 06/20/2019 completed Not Available [facility] 05:31:07 Influenza, split virus, quadrivalent, PF 05/21/2023 completed Not Available [facility] 08/27/2023 05:31:07 zoster recombinant 06/21/2023 completed Not Available [facility] 08/27/2023 05:31:07 SARS-COV-2 (COVID-19) vaccine, UNSPECIFIED 09/25/2020 completed Not Available [facility] 08/27/2023 05:31:07 SARS-COV-2 (COVID-19) vaccine, UNSPECIFIED 05/28/2021 completed Not Available [facility] 08/27/2023 05:31:07 SARS-COV-2 (COVID-19) vaccine, UNSPECIFIED 06/28/2021 completed Not Available [facility] 08/27/2023 05:31:08 Hep B, unspecified formulation 08/16/2009 completed Not Available [facility] 08/27/2023 05:31:08 Hep B, unspecified formulation 11/29/2014 completed Not Available [facility] 08/27/2023 05:31:08 Hep B, unspecified formulation 12/31/2014 completed Not Available [facility] 08/27/2023 05:31:08 Hep B, unspecified formulation 07/05/2015 completed Not Available [facility] 08/27/2023 05:31:08 influenza, unspecified formulation 08/16/2014 completed Not Available [facility] 08/27/2023 05:31:08 influenza, unspecified formulation 05/16/2020 completed Not Available [facility] 08/27/2023 05:31:08 influenza, unspecified formulation 05/18/2022 completed Not Available [facility] 08/27/2023 05:31:08 influenza, unspecified formulation 06/15/2022 completed Not Available [facility] 08/27/2023 05:31:08 influenza, unspecified formulation 06/18/2021 completed Not Available [facility] 08/27/2023 05:31:08 influenza, unspecified formulation 06/20/2019 completed [facility] 08/27/2023 05:31:08 influenza, unspecified formulation 06/14/2024 completed [facility] 06/14/2024 08:44:07 Past Encounters Encounter ID Performer Location Encounter Start Date Encounter Closed Date Diagnosis/Indication Diagnosis SNOMED-CT Code Diagnosis ICD10 Code [id number] V[place] CARPENTER [facility] [address] [place] [address] 10/27/2023 15:41:28 10/27/2023 16:49:29 Elevated blood-pressure reading without diagnosis of hypertension 667104868 R03.0 Hyperlipidemia 46753976 E78.5 Visual disturbance 53742 001 H53.9 Headache 02670866 R51.9 [id number] JUAN CARLOS PARDO PA-C [facility] [address] [place] [address] 11/03/2023 07:14:37 11/03/2023 07:54:26 Essential hypertension 37680499 I10 [id number] JUAN CARLOS PARDO PA-C [facility] [address] [place] [address] 12/30/2023 13:23:39 12/30/2023 16:32:16 Hyperlipidemia 14341139 E78.5 Pre-surger y evaluation 131730805 Z01.157 [id number] TREVOR SAMANIEGO RN [facility] [address] [place] [address] 04/07/2024 09:45:00 04/07/2024 15:24:20 Active or passive immunization [id number] Z23 [id number] [facility] [address] [place] [address] 07/11/2024 11:27:30 07/11/2024 13:02:37 Hyperlipidemia 85981172 E78.5 Adult heal th examination 165623581 Z00.00 Screening mammography 24 108514 Z12.31 Gynecologi c examination 18983297 Z01.419 Gastroesop hageal reflux disease without esophagitis 727821284 K21.9 Essential hypertension 65874468 I10 Menopause present 589128 006 N95.1 Pain of ri ght shoulder joint [id number] 2085997 M25.511 Patient ne w to provider [id number] 43976 Z76.89 Health Concerns Section Related Observation LastModified by Organization Detai ls LastModified Time None Recorded Concern Status LastModified by Organization Details LastModified Time None Recorded Advance Directives Directive N: Payers Encounter Date Sequence Insurance Name Policy Number Policy Duncan Covered Member ID Duncan Member ID Guarantor Name 10/27/2023 1 [place] [facility] [id number] Jessy M Leiper [id number] Jessy M Leiper 10/27/2023 2 [facility] [id number] Jessy M Leiper [id number] Jessy M Leiper 11/03/2023 1 [place] [facility] ([facility]) [id number] Jessy M Leiper [id number] Jessy M Leiper 11/03/2023 2 [facility] [id number] Jessy M Leiper [id number] Jessy M Leiper 12/30/2023 1 [place] [facility] ([facility]) [id number] Jessy M Leiper [id number] Jessy M Leiper 12/30/2023 2 [facility] [id number] Jessy M Leiper [id number] 2 Jessy M Leiper 04/07/2024 1 [place] [facility] ([facility]) [id number] Jessy M Leiper [id number] Jessy M Leiper 04/07/2024 2 [facility] [id number] Jessy M Leiper [id number] Jessy M Leiper Notes Date Note Type Note Provider Name and Address Organization Details Recorded Time 10/27/2023 text/html Pt. at 3:30 PM today, pt. reported sudden onset blurry vision of right Eye. Pt. describes the vision change as similar to getting blinded by a bright focal light and then it was appearing there for about 5 minutes during which time it gradually resolved. Once visual change occurred, it was followed by pressure on the left eye above, then pressure in the back of the neck. Pt did not have any nausea, vomiting, loss of balance, slurring of speech, numbness or tingling in any extremities. She didn't feel otherwise terrible. She has no other symptom complaints. Office BP taken and 180/124. She does report she has been down on hydration and food nutrients since [facility] [place]/u medical appointments. She slept at hot in [place] last night and drove back from [place], [place] this morning without breakfast. Pt. record states she has had migraine w/out aura and pt. reports hx. of prior TIA. Record review shows 04/09/2015 [place] [facility] [place] as pt. had sudden onset expressive aphasia, was brought to ED, BP mildly elevated 140's/80's. The note specificies orders for MRI of head, MRI w/angiography of carotids + [place]. Results of imaging studies not in medical record. Pt. unaware of any carotid stenosis. She has minor remote smoking history per pt. report, quitting many years ago and reports she smoked about 20 years, 1/2 ppd...10-pack years. Pt. w/history of HLD, cholesterol checked 12/2022 with LDL 182, Total 310, HDL 117. HTN: Pt. w/out formal diagnosis at this time, but she was 140/80 at her last visit, 06/2023 with P.A., and she was going to focus on diet and exercise to control this and also her cholesterol. P.A. did rec'd statin medication at that time, but pt. declined. Snoring: Pt. does give history of snoring, but denies any daytime fatigue. She has not had a sleep study. VIR[place]IA CARPENTER [address], [place], [address], [facility]. 10/28/2023 08:51:48 11/03/2023 text/html Persistently elevated blood pressure following ocular disturbance last week when she had right eye visual blurriness lasting 10 minutes without other associated symptoms. Similar to migraines that she has had in past but without headache developing. Has been feeling at her baseline health otherwise. [address], [place], [address], [facility]. 11/03/2023 07:51:47 12/30/2023 text/html Jessy is here preop evaluation for cataract surgery. To be performed by Dr. Mg. Feeling well. She has lost weight with healthier eating. Here bp has come down as well. [address], [place], [address], [facility], [facility]. 12/30/2023 14:05:27 OBGyn Episode No OBEpisode recorded.
--- OUTSIDE RECORDS SUMMARY | 2024-07-11 18:37 | XMS_ITS | Encounter Summary ---
Author Organization [facility] Address [address] [place] [address] Care Team Providers Care Line Assembler Aircraft Name Role Phone Unknown, Provider Primary Care Provider Amy chavez Encounter Details Date Type Department Care Team (Late st Contact Info) Description 05/21/2020 Lab Requisition [facility] Pathology & Laboratory Medicine - [facility] [address] [place] [address] Kayden Andujar APRN [address] [place] [address] [address] [place], [place] [phone] Encounter for other general examination Social History Tobacco Use Types Packs/Day Years [...] Name Priority Date/Time Associated Diagnosis Comments PAP TEST Today 05/21/2020 10:50 EDT HPV DNA DETECTION WITH GENOTYPING, PCR Today 05/21/2020 10:50 EDT documented in this encounter Results * HUMAN PAPILLOMAVIRUS (HPV) DETECTION-HIGH RISK TYPES (05/21/2020 10:50 EDT) HPV other High Risk types, PCR Negative Negative 05/29/2020 15:34 EDT [facility] Comment:No E6 or E7 mRNA is detected from HPV types 16,18,31,33,35,39,45,51,52,56,58,59,66, and 68 by strategic intelligence officer mediated amplification. Papanicolaou smear specimen (specimen) CERVIX UTERI STRUCTURE / Unknown 05/21/2020 10:50 EDT 05/28/2020 14:34 EDT us Kayden Andujar APRN MICROBIOLOGY - GENERAL ORDERABL ES Final Result [facility] [address] [place] [address] * PAP TEST (05/21/2020 10:50 EDT) Specimens A. Cervix and/or Endocervix , ThinPrep Imaging System with Manual Evaluation 05/29/2020 15:34 EDT [facility] Specimen Adequacy Satisfactory for Evaluation - transformation zone component absent 05/29/2020 15:34 EDT [facility] General Categorization Negative for intraepithelial lesion or malignancy 05/29/2020 15:34 EDT [facility] Attestation . 05/29/2020 15:34 EDT [facility] at 1534 Clinical History Clinical History, Signs, Symptoms, Chief Complaint, Pertaining to This Order: See below Last Menstral Period: 2018 Other Clinical History/Order Comments: ALL NORMAL PAPS 05/29/2020 15:34 EDT [facility] HPV The result for the Human Papillomavirus (HPV) Detection-High Risk Types is Negative. No E6 or E7 mRNA is detected from HPV types 16,18,31,33,35,39 ,45,51,52,56,58,5 9,66, and 68 by strategic intelligence officer mediated amplification.Tigist ting was performed on specimen [id number] and was resulted on 05/29/2020 1524 EDT by CRISTINA, LAB INSTRUMENT RESULTS IN 05/29/2020 15:34 EDT [facility] Performing Lab [facility] 05/29/2020 15:34 EDT [facility] Scanned Images 05/29/2020 15:34 EDT [facility] Papanicolaou smear specimen (specimen) CERVIX UTERI STRUCTURE / Unknown 05/21/2020 10:50 EDT 05/22/2020 9:04 EDT us Kayden O Andujar NEW CAR DRIVER PATHOLOGY ORDERABLES Final Resu lt [facility] [address] [place] [address] documented in this encounter Visit Diagnoses Diagnosis Encounter for other general examination documented in this encounter Care Teams Line Assembler Aircraft Relationship Specialty Start Date End Date Unknown, Provider, PCP - General 11/05/10 documented as of this encounter
--- OUTSIDE RECORDS SUMMARY | 2024-07-11 18:37 | XMS_ITS | Encounter Summary ---
Author Organization [facility] Address [address] [place] [address] Care Team Providers Care Field Marketing Manager Name Role Phone Unknown, Provider Primary Care Provider Amy chavez Encounter Details Date Type Department Care Team (Late st Contact Info) Description 11/04/2010 Results Only [facility] [phone] Fartun Ashton, HERI [address] [address] [place] [address] Social History Tobacco Use Types [...] Procedure Name Priority Date/Time Associated Diagnosis Comments CYTOPATHOLOGY Routine 11/04/2010 0:00 EDT documented in this encounter Results * CYTOPATHOLOGY (11/04/2010 0:00 EDT) Pathology Report: CYTOPATHOLOGY REPORT ? Reports generated via electronic interface contain original data; ? however they are lacking the format of the original report. ? Caution should be taken when reading/interpreti ng unformatted reports. ? Name: ? JESSY PORTER ? Accession #: ? [id number] ? : ? 1965 (Age: 45) ??F ?Collect Date: ? 11/04/2010 ? Location: ? [facility] ? Receive Date: ? 11/05/2010 ? Provider: FARTUN O ASHTON FOOD STYLIST ? Copy to: ? Final Report ? SPECIMEN ADEQUACY ? Satisfactory for Evaluation ? - transformation zone component present ? GENERAL CATEGORIZATION ? Negative for Intraepithelial Lesion or Malignancy ? Last Menstural Period: 03/04/11 ? Other: Additional clinical information: Prior OCP in 1990. 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 Specimen/Source: ??Pap Test, Cervix/Endocervix, ThinPrep Imaging System with ? manual evaluation ? Document reviewed and electronically signed by: ? Cinthya Escobar, [place](ASCP) ? Report ??Date: 11/07/2010 15:57 ? HPV with Pap Test ? Date Ordered: ? 11/07/2010 ? Status: ?? Signed Out ?Date Complete: ? 11/12/2010 ? By: ??System Interface ? Date Reported: ? 11/12/2010 ? Interpretation ? RESULT: Negative for HPV types 16, 18, 31, 33, 35, 39, 45, 51, 52, ? 56, 58, 59, and 68. ? Comments ? Document reviewed and electronically signed by: ? System Interface ? Report date: 11/12/2010 ? By the signature above, the attending physician certifies that he/she has ? personally conducted a gross and/or microscopic examination of the described ? specimens and rendered or confirmed the above diagnosis. ? End of Report ? NATI TRIVEDI 11/04/2010 11/05/2010 us Fartun O Ashton ON AIR PERSONALITY PATHOLOGY ORDERABLES Final Resu lt [facility] [address] [place] [address] documented in this encounter Visit Diagnoses Not on filedocumented in this encounter Care Teams Field Marketing Manager Relationship Specialty Start Date End Date Unknown, Provider, PCP - General 11/05/10 documented as of this encounter
--- OUTSIDE RECORDS SUMMARY | 2024-07-11 18:37 | XMS_ITS | Clinical Summary ---
Author Organization [facility] Address [address] [place] [address] Care Team Providers Care Wind Tunnel Technician Name Role Phone Unknown, Provider MD Primary Care Provider Unava ilable Social History Tobacco Use Types Packs/Day Years Used Date Smoking Tobacco: Never Assessed Comments Unknown Sex and Gender Information Value Date Recorded Sex Assigned at Not on file Legal Sex Female 18:52 EST Gender Identity Not on file Sexual Orientation Not on file Plan of Treatment Health Maintenance Due Date Last Done Comments Hepatitis C Screen 1965 Hepatitis B Vaccine (1 of 3 - 19+ 3-dose series) 07/19 COVID-19 Vaccine ( season) 2024 Care Teams Wind Tunnel Technician Relationship Specialty Start Date End Date Unknown, Provider, PCP - General 11/05/10
--- OUTSIDE RECORDS SUMMARY | 2024-07-11 18:37 | XMS_ITS | Encounter Summary ---
[place] [address] Care Team Providers Care Validation Consultant Name Role Phone Abe Plummer MD Primary Care Provider [phone] Encounter Details Date Type Department Care Team (Late st Contact Info) Description 04/09/2015 [place] [phone] Hortencia Liu MD [facility] [place] [address] Social History Tobacco Use Types Packs/Day Years [...] encounter Miscellaneous Notes * Telephone Encounter - Hortencia Liu MD - 04/09/2015 6:25 PM EDT 6:25 PM Transfer center [facility] 4:45pm 1 hour and 45 min ago was at her 's doctor's appointment had sudden onset of dense expressive aphasia could only nod her head Asa improved and then it got worse now she is nearly baseline. Arrived at 6pm to ED still had word-finding difficulty Numbness in right forearm prior to speaking problem, now resolved VS ok CT head NIHSS - word finding difficulty Not HTN, not HLLD, non smoker, no DM, not obese, no estrogen supplementation Sinus rhythm BP 148/80 HR 91 Naming 5 objects intact Read 100 words without error Received 325mg asa Echo TTE include bubble study CTA carotids and [place] he[place] murphy Telemetry MRI without He will push images and call back with developments documented in this encounter Plan of Treatment Not on file documented as of this encounter Visit Diagnoses Not on filedocumented in this encounter Care Teams Validation Consultant Relationship Specialty Start Date End Date Abe Plummer MD PCP - General 10/07/11 12/14/19 documented as of this encounter
--- OUTSIDE RECORDS SUMMARY | 2024-07-11 18:37 | XMS_ITS | Encounter Summary ---
Author Organization [facility] Address [address] [place] [address] Care Team Providers Care College Advisor Name Role Phone Unknown, Provider Primary Care Provider Amy chavez Encounter Details Date Type Department Care Team (Late st Contact Info) Description 11/20/2021 Lab Requisition [facility] Pathology & Laboratory Medicine - [facility] [address] [place] [address] Outr Resulting Lab, Provider Social History Tobacco [...] Procedure Name Priority Date/Time Associated Diagnosis Comments MEASLES IGG AB Routine 11/20/2021 8:34 EDT HEPATITIS B SURFACE ANTIBODY Routine 11/20/2021 8:34 EDT documented in this encounter Results * HEPATITIS B SURFACE ANTIBODY (11/20/2021 8:34 EDT) Hep B Surface Ab, Quantitative >1,000.0 See Note mIU/mL 11/21/2021 9:30 EDT [facility] Comment: Reference Range for Hep B Surface Ab, Quant: Positive: >= 10.0 mIU/mL Negative: ??< 10.0 mIU/mL Patient is presumed to be immune to infection with Hepatitis B Virus. Hep B Surface Ab, Qualitative Positive See Note 11/21/2021 9:30 EDT [facility] Comment: Reference Range for Hep B Surface Ab, Qual: Unvaccinated: ??Negative Vaccinated: ??Positive Blood VENOUS BLOOD / Unknown 11/20/2021 8:34 EDT 11/20/2021 21:13 EDT us Provider Outr Resulting Lab CHEMISTRY & BLOOD GA S ORDERABLES Final Result Performing Organization Address City/[facility] Co de Phone Number [facility] [address] [place] [address] * MEASLES IGG AB (11/20/2021 8:34 EDT) Measles IgG Ab Positive See Note 11/21/2021 13:34 EDT [facility] Comment:Presence of detectab le measles virus IgG antibodies. Blood VENOUS BLOOD / Unknown 11/20/2021 8:34 EDT 11/20/2021 21:13 EDT us Provider Outr Resulting Lab IMMUNOLOGY AND SEROL OGY ORDERABLES Final Result Performing Organization Address City/[facility] Co de Phone Number [facility] [address] [place] [address] documented in this encounter Visit Diagnoses Not on filedocumented in this encounter Care Teams College Advisor Relationship Specialty Start Date End Date Unknown, Provider, PCP - General 11/05/10 documented as of this encounter
--- OUTSIDE RECORDS SUMMARY | 2024-07-11 18:37 | XMS_ITS | Encounter Summary ---
[place] [address] Care Team Providers Care Heel Cover Splitter Name Role Phone Hannah Sosa MD Primary Care Provider + Reason for Visit * Reason Comments Follow-up Encounter Details Date Type Department Care Team (Late st Contact Info) Description 12/15/2019 3:30 PM EDT Office Visit Dermatology at [address] [phone] Júnior Block MD [address] [facility] [place] [address] Seborrheic keratosis; Nevus Social History Tobacco Use Types Packs/Day [...] Progress Notes * Júnior Block MD - 12/15/2019 3:30 PM EDT Problem: Left upper back/posterior shoulder lesion of concern Jessy presents today because of a lesion of concern on the left upper back near her shoulder. She was seen by Dr. Sosa and his description was of a friable dark brown lesion and then a photograph she sent us seem to suggest a flesh toned nodule with central punctum suggestive of follicular cyst. So she presents today the office that I can actually see the lesion and evaluate it more accurately. Physical examination reveals a minimally keratotic flattopped patch some 5 x 7 mm in size over the left upper back over the shoulder consistent with residual seborrheic keratosis. This represents thekeratosis that did not resolve with Dr. Sosa's liquid nitrogen. There is no follicular cyst there is no punctum. There is no surrounding erythema or induration. The back otherwise appears benign. The re is no sign of any tumor or [...] keratosis Nevus Benign neoplasm of skin, site unspecified documented in this encounter Care Teams Heel Cover Splitter Relationship Specialty Start Date End Date Hannah Sosa MD PCP - General Family Medicine 12/15/19 documented as of this encounter
--- OUTSIDE RECORDS SUMMARY | 2024-07-11 18:37 | XMS_ITS | Encounter Summary ---
Author Organization [facility] Address [address] [place] [address] Care Team Providers Care Diagnostic Medical Sonographer Name Role Phone Unknown, Provider Primary Care Provider Amy chavez Encounter Details Date Type Department Care Team (Late st Contact Info) Description 04/07/2018 Results Only [facility] [phone] Fartun Ashton, HERI [address] [place] [address] Social History Tobacco Use Types [...] Diagnosis Comments PAP TEST- RESULT ONLY Routine 04/07/2018 0:00 EDT documented in this encounter Results * PAP TEST- RESULT ONLY (04/07/2018 0:00 EDT) Pathology Report: CYTOPATHOLOGY REPORT Reports generated via electronic interface contain original data; however they are lacking the format of the original report. Caution should be taken when reading/interpreti ng unformatted reports. Name: ? GERMANKINGSJESSY ? Accession #: ? [id number] ? : ? 1965 (Age: 52) ??F ?Collect Date: ? 04/07/2018 ? Location: ? [facility] ? Receive Date: ? 04/11/2018 ? Provider: FARTUN ASHTON WHITE WORK CLEANER Copy to: ? Final Report SPECIMEN ADEQUACY ? Satisfactory for Evaluation - transformation zone component absent GENERAL CATEGORIZATION ? Negative for Intraepithelial Lesion or Malignancy ?? Hormonal/Contracep tive status: Depo-Provera Other: Previous NIL Pap(s) Specimen/Source: ??Pap Test, Cervix, ThinPrep Imaging System with manual evaluation Document reviewed and electronically signed by: ? Silvestre Pena, CT(ASCP) ? Report ??Date: 04/20/2018 16:16 HPV with Pap Test ? Date Ordered: ? 04/20/2018 ? Status: ?? Signed Out ?Date Complete: ? 04/22/2018 ? By: ??System Interface ? Date Reported: ? 04/22/2018 ? Interpretation RESULT: Negative for HPV. No E6 or E7 mRNA is detected from HPV types 16,18,31,33,35, 39,45,51,52,56,58, 59,66, and 68 by instructor adjunct surgical technician mediated amplification. Comments Document reviewed and electronically signed by: ? System Interface ? Report date: 04/22/2018 By the signature above, the attending physician certifies that he/she has personally conducted a gross and/or microscopic examination of the described specimens and rendered or confirmed the above diagnosis. End of Report [facility] 04/07/2018 04/11/2018 us Fartun Ashton ASSISTANT TENNIS COACH PATHOLOGY ORDERABLES Final Resu lt [facility] [address] [place] [address] documented in this encounter Visit Diagnoses Not on filedocumented in this encounter Care Teams Diagnostic Medical Sonographer Relationship Specialty Start Date End Date Unknown, Provider, PCP - General 11/05/10 documented as of this encounter
[2024-07-11 20:03] LABS: ALT 45 U/L (14-59); AST 55 U/L (15-37); Albumin 4.3 g/dL (3.4-5.0); Alkaline Phosphatase 100 U/L (46-116); Anion Gap 10.5 mmol/L (3-11); BUN 11 mg/dL (7-18); Bilirubin, Total 0.37 mg/dL (0.2-1.0); CO2 25.5 mmol/L (21.0-32.0); Calcium 9.3 mg/dL (8.5-10.1); Calculated LDL 175 mg/dL (<100); Chloride 101 mmol/L (98-107); Cholesterol 312 mg/dL (<200); Estimated GFR 65.71 (mL/min/1.73m2); Glucose 88 mg/dL (74-106); HDL Cholesterol 122 mg/dL (40-60); Potassium 3.9 mmol/L (3.5-5.1); Sodium 137 mmol/L (136-145); Total Protein 8.5 g/dL (6.4-8.2); Triglyceride 79 mg/dL (<150)
== END 2024-07-11 18:36 | disposition home or self-care (01) ==
LOC: NCHCN 18:35
PROVIDERS: PCP Physician Assistant; Visit Provider Nurse Practitioner Family
DX: I10 Essential (primary) hypertension (principal); E78.5 Hyperlipidemia, unspecified; Z11.51 Encounter for screening for human papillomavirus (HPV); Z01.419 Encounter for gynecological examination (general) (routine) without abnormal findings
CPT/HCPCS: 80053; 80061; 88142; 87624

== ENCOUNTER 2024-08-04 00:26 | Outpatient (CLI) | payer BC, OTHER, SELFPAY ==
--- NOTE | 2024-08-04 | DI.MAMMO_ITS ---
Exam(s) MAMMO SCREENING EXAM: MAMMO SCREENING CLINICAL HISTORY: Screening, Z12.31 TECHNIQUE: Mammograms were interpreted according to the usual protocol including computer analysis w [employer] CAD system, tomosynthesis and C-view imaging. COMPARISON: 2014 through 2022 FINDINGS: The breasts are composed of scattered fibroglandular densities, Breast Density category B. No suspicious masses or suspicious microcalcifications are seen. Benign calcifications again noted i n the subareolar region of the right breast. No skin thickening or abnormal axillary lymph nodes are seen. There has been no significant change from prior exams. IMPRESSION: BI-RADS Category 2 - Negative Mammogram with benign findings. Yearly screening mammography is recomm ended. Breast Density - Category B, scattered fibroglandular densities. A negative radiographic report should not delay biopsy if a dominant or clinically suspicious mass is present. Up to ten percent of cancers are not identified on mammography. A negative report may reinforce clinical impression. Adenosis and dense breasts may obscure an underlying neoplasm. False positive reports average 6 to 10%. Patient will receive a letter notifying them of these results.
--- OUTSIDE RECORDS SUMMARY | 2024-08-04 00:28 | XMS_ITS | Encounter Summary ---
Author Organization [facility] Address [address] [place] [address] Care Team Providers Care Plater Barrel Name Role Phone Unknown, Provider Primary Care Provider Amy chavez Encounter Details Date Type Department Care Team (Late st Contact Info) Description 02/14/2015 Results Only [facility] [phone] Fartun Ashton APRN [address] [place] [address] Social History Tobacco Use Types [...] Name: ? GERMANJESSY ? Accession #: ? [id number] ? : ? 1965 (Age: 49) ??F ?Collect Date: ? 02/14/2015 ? Location: ? [facility] ? Receive Date: ? 02/18/2015 ? Provider: FARTUN ASHTON IT TRAINER Copy to: ? Final Report SPECIMEN ADEQUACY [...] types 16,18,31,33,35, 39,45,51,52,56,58, 59,66, and 68 by cigarette maker mediated amplification. Comments Document reviewed and electronically signed by: ? System Interface ? Report date: 02/27/2015 By the signature above, the attending physician certifies that he/she has personally conducted a gross and/or microscopic examination of the described specimens and rendered or confirmed the above diagnosis. End of Report [facility] 02/14/2015 02/18/2015 us Fartun Ashotn HOTEL OFFICE MANAGER PATHOLOGY ORDERABLES Final Resu lt [facility] [address] [place] [address] documented in this encounter Visit Diagnoses Not on filedocumented in this encounter Care Teams Plater Barrel Relationship Specialty Start Date End Date Unknown, Provider, PCP - General 11/05/10 documented as of this encounter
--- OUTSIDE RECORDS SUMMARY | 2024-08-04 00:28 | XMS_ITS | Encounter Summary ---
Author Organization [facility] [place] [address] Care Team Providers Care Channel Opener Outsoles Name Role Phone Abe Plummer MD Primary Care Provider [phone] Encounter Details Date Type Department Care Team (Late st Contact Info) Description 10/07/2011 External Results XRay at [address] [place] [address] Jd Steve MD [address] [place] [address] [place] [address] Social History Tobacco Use Types Packs/Day Years [...] on filedocumented in this encounter Care Teams Channel Opener Outsoles Relationship Specialty Start Date End Date Abe Plummer MD PCP - General 10/07/11 12/14/19 documented as of this encounter
--- OUTSIDE RECORDS SUMMARY | 2024-08-04 00:28 | XMS_ITS | Encounter Summary ---
Author Organization [facility] [place] [address] Care Team Providers Care Investment Banking Analyst Name Role Phone Hai Voss MD Primary Care Provider [phone] Encounter Details Date Type Department Care Team ([facility] st Contact Info) Description 08/19/2010 9:45 AM EST Office Visit [address] [phone] Shamar Sahni MD [facility] DR CARDI[place] [address] Social History Tobacco Use Types Packs/Day Years [...] on filedocumented in this encounter Care Teams Investment Banking Analyst Relationship Specialty Start Date End Date Hai Voss MD [address] [place] [phone] PCP - General 07/14/10 10/06/11 documented as of this encounter
--- OUTSIDE RECORDS SUMMARY | 2024-08-04 00:28 | XMS_ITS | Encounter Summary ---
Author Organization [facility] Address [address] [place] [address] Care Team Providers Care Department Mgr Name Role Phone Unknown, Provider Primary Care Provider Amy chavez Encounter Details Date Type Department Care Team (Late st Contact Info) Description 05/21/2020 Lab Requisition [facility] Pathology & Laboratory Medicine - [facility] [address] [place] [address] Kayden Andujar APRN [address] [place] [address] [address] [place], [place] [id number] Encounter for other general examination Social History [...] types, PCR Negative Negative 05/29/2020 15:34 EDT [facility] Comment:No E6 or E7 mRNA is detected from HPV types 16,18,31,33,35,39,45,51,52,56,58,59,66, and 68 by sheep and wheat farmer mediated amplification. Papanicolaou smear specimen (specimen) CERVIX UTERI STRUCTURE / Unknown 05/21/2020 10:50 EDT 05/28/2020 14:34 EDT us Kayden Andujar APRN MICROBIOLOGY - GENERAL ORDERABL ES Final Result [facility] [address] [place] [address] * PAP TEST (05/21/2020 10:50 EDT) Specimens A. Cervix and/or Endocervix , ThinPrep Imaging System with Manual Evaluation 05/29/2020 15:34 EDT [facility] Specimen Adequacy Satisfactory for Evaluation - transformation zone component absent 05/29/2020 15:34 EDT [facility] General Categorization Negative for intraepithelial lesion or malignancy 05/29/2020 15:34 EDT [facility] Attestation . 05/29/2020 15:34 EDT [facility] at 1534 Clinical History Clinical History, Signs, Symptoms, Chief Complaint, Pertaining to This Order: See below Last Menstral Period: 2018 Other Clinical History/Order Comments: ALL NORMAL PAPS 05/29/2020 15:34 EDT [facility] HPV The result for the Human Papillomavirus (HPV) Detection-High Risk Types is Negative. No E6 or E7 mRNA is detected from HPV types 16,18,31,33,35,39 ,45,51,52,56,58,5 9,66, and 68 by sheep and wheat farmer mediated amplification.Tigist ting was performed on specimen [id number] and was resulted on 05/29/2020 1524 EDT by CRISTINA, LAB INSTRUMENT RESULTS IN 05/29/2020 15:34 EDT [facility] Performing Lab [facility] 05/29/2020 15:34 EDT [facility] Scanned Images 05/29/2020 15:34 EDT [facility] Papanicolaou smear specimen (specimen) CERVIX UTERI STRUCTURE / Unknown 05/21/2020 10:50 EDT 05/22/2020 9:04 EDT us Kayden O Andujar NETWORK ANALYST PATHOLOGY ORDERABLES Final Resu lt [facility] [address] [place] [address] documented in this encounter Visit Diagnoses Diagnosis Encounter for other general examination documented in this encounter Care Teams Department Mgr Relationship Specialty Start Date End Date Unknown, Provider, PCP - General 11/05/10 documented as of this encounter
--- OUTSIDE RECORDS SUMMARY | 2024-08-04 00:28 | XMS_ITS | Encounter Summary ---
[place] [address] Care Team Providers Care Marketing Rotation Associate Name Role Phone Abe Plummer MD Primary Care Provider [phone] Encounter Details Date Type Department Care Team (Late st Contact Info) Description 11/02/2011 Telephone [place] [phone] Delmer Ortega, PA Social History Tobacco Use Types Packs/Day Years [...] called Wednesday afternoon. She feels that the Repair Technician is not going to be happy with paying for a WRAP when the patient is working FT with no restrictions. Do you want me to cancel the WRAP appointment on 12-08? Thank you, Rahda documented in this encounter Plan of Treatment Not on file documented as of this encounter Visit Diagnoses Not on filedocumented in this encounter Care Teams Marketing Rotation Associate Relationship Specialty Start Date End Date Abe Plummer MD PCP - General 10/07/11 12/14/19 documented as of this encounter
--- OUTSIDE RECORDS SUMMARY | 2024-08-04 00:28 | XMS_ITS | Encounter Summary ---
Author Organization [facility] [place] [address] Care Team Providers Care Naval Special Warfare Medic Name Role Phone Abe Plummer MD Primary Care Provider [phone] Encounter Details Date Type Department Care Team (Late st Contact Info) Description 04/09/2015 [place] [phone] Hortencia Liu MD Social History Tobacco Use Types Packs/Day Years [...] 6:25 PM EDT 6:25 PM Transfer center [facility] 4:45pm 1 hour and 45 min ago [...] TTE include bubble study CTA carotids and cowlitz murphy Telemetry MRI without He will push images and call back with developments documented in this encounter Plan of Treatment Not on file documented as of this encounter Visit Diagnoses Not on filedocumented in this encounter Care Teams Naval Special Warfare Medic Relationship Specialty Start Date End Date Abe Plummer MD PCP - General 10/07/11 12/14/19 documented as of this encounter
--- OUTSIDE RECORDS SUMMARY | 2024-08-04 00:28 | XMS_ITS | Encounter Summary ---
Author Organization [facility] Address [address] [place] [address] Care Team Providers Care Syrup Maker Name Role Phone Unknown, Provider Primary Care Provider Amy chavez Encounter Details Date Type Department Care Team (Late st Contact Info) Description 03/03/2016 Results Only [facility] [phone] Fartun Ashton, HERI [address] [place] [address] Social History Tobacco Use Types [...] Name: ? GERMANJESSY ? Accession #: ? [id number] ? : ? 1965 (Age: 50) ??F ?Collect Date: ? 03/03/2016 ? Location: ? [facility] ? Receive Date: ? 03/04/2016 ? Provider: FARTUN ASHTON ACUTE SPECIALIST Copy to: ? Final Report SPECIMEN ADEQUACY [...] types 16,18,31,33,35, 39,45,51,52,56,58, 59,66, and 68 by head of store operations mediated amplification. Comments Document reviewed and electronically signed by: ? System Interface ? Report date: 03/18/2016 By the signature above, the attending physician certifies that he/she has personally conducted a gross and/or microscopic examination of the described specimens and rendered or confirmed the above diagnosis. End of Report [facility] 03/03/2016 03/04/2016 us Fartun Ashton WEBSPHERE PORTAL DEVELOPER PATHOLOGY ORDERABLES Final Resu lt [facility] [address] [place] [address] documented in this encounter Visit Diagnoses Not on filedocumented in this encounter Care Teams Syrup Maker Relationship Specialty Start Date End Date Unknown, Provider, PCP - General 11/05/10 documented as of this encounter
--- OUTSIDE RECORDS SUMMARY | 2024-08-04 00:28 | XMS_ITS | Clinical Summary ---
Author Organization [facility] Address [address] [place] [address] Care Team Providers Care Electro Mechanical Designer Name Role Phone Unknown, Provider Primary Care Provider Unava ilable Encounters Date Type Department Care Team Description 07/14/2024 Lab Requisition [facility] Pathology & Laboratory Medicine - [facility] [address] [place] [address] Lisa Siegel FNP Encounter for screening for human papillomavirus (HPV); Encounter for screening for malignant neoplasm of cervix; Encounter for general adult medical examination without abnormal findings from Last 3 Months Social History Tobacco Use Types Packs/Day Years [...] series) 07/19 COVID-19 Vaccine ( season) 2024 Procedures Procedure Name Priority Date/Time Associated Diagnosis Comments PAP TEST Today 07/11/2024 12:30 EST Encounter for screening for human papillomavirus (HPV) Encounter for screening for malignant neoplasm of cervix Encounter for general adult medical examination without abnormal findings HPV DNA DETECTION WITH GENOTYPING, PCR Today 07/11/2024 12:30 EST Encounter for screening for human papillomavirus (HPV) Encounter for screening for malignant neoplasm of cervix Encounter for general adult medical examination without abnormal findings from Last 3 Months Results * PAP TEST (07/11/2024 12:30 EST) Specimens A. Cervix and/or Endocervix , ThinPrep Imaging System with Manual Evaluation 07/20/2024 14:54 [facility] Specimen Adequacy Satisfactory for Evaluation - transformation zone component present 07/20/2024 14:54 [facility] General Categorization Negative for intraepithelial lesion or malignancy 07/20/2024 14:54 [facility] Attestation . 07/20/2024 14:54 [facility] at 1454 Clinical History See below 07/20/20 14:54 [facility] Performing Lab [facility] 07/20/2024 14:54 [facility] Scanned Images 07/20/2024 14:54 [facility] HPV High Risk type 16, PCR Negative 07/20/2024 14:54 [facility] HPV High Risk type 18, PCR Negative 07/20/2024 14:54 [facility] HPV Other High Risk Types, PCR Negative The following Other High Risk HPV types were not detected: 31,33, 35, 39, 45, 51, 52, 56, 58, 59, 66 and 68. 07/20/2024 14:54 [facility] Pap Test CERVIX UTERI STRUCTURE / Unknown 07/11/2024 12:30 EST 07/14/2024 12:37 EST Lisa Siegel MANAGER RESIDENTIAL PATHOLOGY ORDERABLES Final Re sult [facility] [address] [place] [address] * HPV DNA DETECTION WITH GENOTYPING, PCR (07/11/2024 12:30 EST) HPV High Risk type 16, PCR Negative Negative 07/20/2024 14:54 [facility] HPV High Risk type 18, PCR Negative Negative 07/20/2024 14:54 [facility] HPV other High Risk types, PCR Negative Negative 07/20/2024 14:54 [facility] Comment: The following Other High Risk HPV types were not detected: ??31,33, 35, 39, 45, 51, 52, 56, 58, 59, 66 and 68. Pap Test CERVIX UTERI STRUCTURE / Unknown 07/11/2024 12:30 EST 2024 11:51 EST us Lisa Siegel MANAGER RESIDENTIAL MICROBIOLOGY - GENERAL ORDERA BLES Final Result [facility] [address] [place], [place] [id number] from Last 3 Months Care Teams Electro Mechanical Designer Relationship Specialty Start Date End Date Unknown, Provider, PCP - General 11/05/10
--- OUTSIDE RECORDS SUMMARY | 2024-08-04 00:28 | XMS_ITS | Encounter Summary ---
Author Organization [facility] [place] [address] Care Team Providers Care Small Engine Specialist Name Role Phone Abe Plummer MD Primary Care Provider [phone] Reason for Visit * Consultation (Routine) - Specialty Diagnoses / Procedures Referred By Temo cade Referred To Contact Dermatology Diagnoses Disorder of the skin and subcutaneous tissue, unspecified Skin Lesion over left scapula Procedures Consult Hannah Sosa MD [facility] [place][note 2] [place] [address] Júnior Block MD [address] [place] [address], [facility] [place] [address] Referral ID Status Reason Start Date Expiration Date V isits Requested Visits Authorized [id number] Consult, Test & Treat PCP Updated and/or Approved 11/23/2019 05/24/2020 6 6 Encounter Details Date Type Department Care Team (Late st Contact Info) Description 12/12/2019 9:00 AM EDT TH Visit (TeleHealth) Dermatology at [address] [phone] Júnior Block MD [address] [place] [address], [facility]ER[facility] [place], [place] [id number] [place] Social History Tobacco Use Types Packs/Day [...] unspecified documented in this encounter Care Teams Small Engine Specialist Relationship Specialty Start Date End Date Abe Plummer MD PCP - General 10/07/11 12/14/19 documented as of this encounter
--- OUTSIDE RECORDS SUMMARY | 2024-08-04 00:28 | XMS_ITS | Encounter Summary ---
Author Organization [facility] Address [address] [place] [address] Care Team Providers Care Medical Staff Credentialing Coordinator Name Role Phone Unknown, Provider Primary Care Provider Amy chavez Encounter Details Date Type Department Care Team (Late st Contact Info) Description 11/08/2012 Results Only [facility] [phone] Fartun Ashton, HERI [address] [place] [address] Social History Tobacco Use Types [...] Name: ? GERMANJESSY ? Accession #: ? [id number] ? : ? 1965 (Age: 47) ??F ?Collect Date: ? 11/08/2012 ? Location: ? [facility] ? Receive Date: ? 11/09/2012 ? Provider: FARTUN ASHTON SUPERVISOR PIPELINE MAINTENANCE Copy to: ? Final Report SPECIMEN ADEQUACY [...] types 16,18,31,33,35, 39,45,51,52,56,58, 59,66, and 68 by spout liner mediated amplification. Comments Document reviewed and electronically signed by: ? System Interface ? Report date: 11/17/2012 By the signature above, the attending physician certifies that he/she has personally conducted a gross and/or microscopic examination of the described specimens and rendered or confirmed the above diagnosis. End of Report [facility] 11/08/2012 11/09/2012 us Fartun Ashton CEMENT GRINDING MILL OPERATOR PATHOLOGY ORDERABLES Final Resu lt [facility] [address] [place] [address] documented in this encounter Visit Diagnoses Not on filedocumented in this encounter Care Teams Medical Staff Credentialing Coordinator Relationship Specialty Start Date End Date Unknown, Provider, PCP - General 11/05/10 documented as of this encounter
--- OUTSIDE RECORDS SUMMARY | 2024-08-04 00:28 | XMS_ITS | Clinical Summary ---
Author Organization [facility] [place] [address] Care Team Providers Care Value Analyst Name Role Phone Hannah Sosa MD Primary [...] - Influenza standard series) 04/16/2024 Care Teams Value Analyst Relationship Specialty Start Date End Date Hannah Sosa MD PCP - General Family Medicine 12/15/19
--- OUTSIDE RECORDS SUMMARY | 2024-08-04 00:28 | XMS_ITS | Encounter Summary ---
[place] [address] Care Team Providers Care Exceptional Student Education Aide Name Role Phone Abe Plummer MD Primary Care Provider [phone] Reason for Referral * Occupational Therapy (Routine) - Closed Specialty Diagnoses / Procedures Referred By Contact Referred To Contact Occupational Therapy Diagnoses Sprain of left acromioclavicular joint Mechanical low back pain [facility] [address] [place] [phone] [facility] [place] [phone] Referral ID Status Reason Start Date Expiration Date V isits Requested Visits Authorized [id number] Closed Other 10/07/2011 04/04/2012 1 1 * Physical Therapy (Routine) - Closed Specialty Diagnoses / Procedures Referred By Contac t Referred To Contact Physical Therapy Diagnoses Sprain of left acromioclavicular joint Mechanical low back pain [facility] [address] [place] [address] [facility] [place] [address] Referral ID Status Reason Start Date Expiration Date V isits Requested Visits Authorized [id number] Closed Evaluate and Treat 10/07/2011 04/04/2012 1 1 Reason for Visit * Reason Comments Back Pain left shoulder Encounter Details Date Type Department Care Team (Latest Contact Info) Description 10/07/2011 2:05 PM EST Office Visit [facility] [place] [phone] Delmer Ortega PA Mechanical low back pain (Primary Dx); Sprain [...] recommended option. She can certainly use some wcdm-oyw-alpxvrl NSAIDs to see if she can get [...] COMPARISON STUDY: ??None. FINDINGS: ??There are five hpz-rqt-vlkjceg lumbar-type vertebral bodies. No spondylolisthesis or subluxation. Flexion/extension images reveal no instability. There is L5-S1 facet arthropathy. The pedicles are intact. Procedure Note Romy Adkins MD - 10/08/2011 LUMBAR SPINE, AP AND FLEXION/EXTENSION LATERAL IMAGES: HISTORY: pain COMPARISON STUDY: None. FINDINGS: There are five tgv-cym-ujextrz lumbar-type vertebral bodies. No spondylolisthesis or subluxation. [...] Lumbago documented in this encounter Care Teams Exceptional Student Education Aide Relationship Specialty Start Date End Date Abe Plummer MD PCP - General 10/07/11 12/14/19 documented as of this encounter
--- OUTSIDE RECORDS SUMMARY | 2024-08-04 00:28 | XMS_ITS | Encounter Summary ---
Author Organization [facility] Address [address] [place] [address] Care Team Providers Care Internet Security Specialist Name Role Phone Unknown, Provider Primary Care Provider Amy chavez Encounter Details Date Type Department Care Team (Late st Contact Info) Description 05/21/2020 Lab Requisition [facility] Pathology & Laboratory Medicine - [facility] [address] [place] [address] Outr Resulting Lab, Provider Social History Tobacco [...] gonorrhoeae Result Negative Negative 05/22/2020 15:11 EDT [facility] Chlamydia trachomatis Result Negative Negative 05/22/2020 15:11 EDT [facility] Papanicolaou smear specimen (specimen) CERVIX UTERI STRUCTURE / Unknown 05/21/2020 10:50 EDT 05/22/2020 7:13 EDT us Provider Outr Resulting Lab MICROBIOLOGY - GENER AL ORDERABLES Final Result [facility] [address] [place] [address] documented in this encounter Visit Diagnoses Not on filedocumented in this encounter Care Teams Internet Security Specialist Relationship Specialty Start Date End Date Unknown, Provider, PCP - General 11/05/10 documented as of this encounter
--- OUTSIDE RECORDS SUMMARY | 2024-08-04 00:28 | XMS_ITS | Encounter Summary ---
Author Organization [facility] Address [address] [place] [address] Care Team Providers Care Weight Tester Name Role Phone Unknown, Provider Primary Care Provider Amy chavez Encounter Details Date Type Department Care Team (Late st Contact Info) Description 04/27/2019 Results Only [facility] [phone] Fartun Ashton, HERI [address] [place] [address] Social History Tobacco Use Types [...] Name: ? GERMANJESSY ? Accession #: ? [id number] ? : ? 1965 (Age: 53) ??F [...] types 16,18,31,33,35, 39,45,51,52,56,58, 59,66, and 68 by loan servicing specialist mediated amplification. Comments Document reviewed and electronically signed by: ? System Interface ? Report date: 05/04/2019 By the signature above, the attending physician certifies that he/she has personally conducted a gross and/or microscopic examination of the described specimens and rendered or confirmed the above diagnosis. End of Report [facility] 04/27/2019 04/28/2019 us Fartun Ashton APRN PATHOLOGY ORDERABLES Final Resu lt [facility] [address] [place] [address] documented in this encounter Visit Diagnoses Not on filedocumented in this encounter Care Teams Weight Tester Relationship Specialty Start Date End Date Unknown, Provider, PCP - General 11/05/10 documented as of this encounter
--- OUTSIDE RECORDS SUMMARY | 2024-08-04 00:28 | XMS_ITS | Continuity of Care Document ---
Author Organization [place] - [facility] Address [place] [address] Assessment No assessment recorded. Plan of Treatment Reminders Order Date Submit Date Provider Last Modified By Organization Details Last Modified Time Details Appointments Follow Up 30 2024 01:00P Chandan BARBOZA Not available Not available Not available Lab pap, LB + HR HPV 2023 [facility] (Registration ), [address] [place] [address] [place], [address], 07/20/2024 15:49:10 CMP, serum or plasma - 1 PST obtained without issue 2023 [facility] (Registration ), [address] [place] [address] [place], [address], 07/11/2024 20:05:56 Referral None recorded. Procedures None recorded. Surgeries None recorded. Imaging MAMMO, screening , bilateral - pt due 07/27/24 or later 2023 024 [facility] [address], [place], [address], 07/14/2024 08:24:59 MRI, shoulder, w/o contrast 2023 024 [email or web address], [address], [place], [address], 07/28/2024 08:22:40 Medication Orders None recorded. Patient TargetsNo targets recorded. Patient Instructions Encounter Date Encounter Id Patient Instructions Last Modified By Organization Details Last Modified Time 07/11/2024 [id number] Nice to see you today Jessy your pap will be back in about 4 weeks from [facility] typically we will send you a letter if normal, will call you if abnormal colonoscopy due in 2028 I will call pharmacy about latex free climara Pro patch option. if none that are latex free that have progesterone added for uterine support, we may need you to see CONTENT PRODUCER at [facility] for initiation of potential oral contraceptive or start low dose with me and follow up with them at least for initiation of higher dosing oral if needed. Right shoulder pain: suspect biceps tendonitis: will try to get MRI imaging approved for more guided treatment since worsening over a year instead of improving. If denied will get PT referral vs. orthopedics consult. topicals discussed, oral ibuprofen PRN or Tylenol PRN sparingly gentle range of motion, avoid lifting heavy objects or repetitive motions let's follow up face to face in 3 months for Hormone reassement [email or web address] Not available 07/18/2024 12:55:00 Reason for Referral None Reported. Problems Name Problem SNOMED Code Status Onset Date Resolution Date Notes Provider Name and Address Organization Details Recorded Time Pain of right shoulder joint 712603630761 13920 Active [address], [place], [address], [facility] 12:45:11 Menopausa l syndrome 480916881 Active [address], [place], [address], [facility] 16:12:30 Migraine without aura, not refractor y 587532461 Active 2022 Problem Code: G43.009; Problem Code Type: ICD-10; [address], [place], [address], [facility] 12:11:39 Gastroeso phageal reflux disease without esophagit is 457122925 Active 2022 Problem Code: K21.9; Problem Code Type: ICD-10; [address], [place], [address], [facility] 4 12:11:00 Essential hypertens ion 43201562 Active 2022 3 - Comments only - [...] Code Type: ICD-10; [address], [place], [address], [facility] 4 12:10:35 Hyperlipi kelliia 50633066 Active 2022 3 - Comments only - Juan Carlos Pardo RPA - With high HDL. Her LDL has been over 190. Statin recommend ed. She would like to work harder on nutrition . Recommend ed Mediterra nean diet. Fasting lipids prior to physical exam in 6 months. Problem Code: E78.5; Problem Code Type: ICD-10; [address], [place], [address], [facility] 4 12:11:20 Menopause present 818848422 Active 2022 3 - Comments only - Juan Carlos Pardo RPA - Postmenop ausal. Low-dose estrogen in the past did not help. Major depressio n with Depo shot. Trial of low-dose SSRI to start. Reviewed side effect profile and mechanism of action. Problem Code: N95.1; Problem Code Type: ICD-10; [address], [place], [address], [facility] 4 12:11:33 Low back pain 777391485 Active 2022 Problem Code: M54.50; Problem Code Type: ICD-10; [address], [place], [address], [facility] 4 12:12:07 Problem Notes None recorded. Procedures Surgical History Date Name Laterality Status Provider Name and Address Organization Details Recorded Time 4 extraction of cataract completed [address], [facility] [address], [facility] 01/15/2024 08:15:56 3 Most Recent Mammogram completed TREVOR SAMANIEGO RN [facility] 07/11/2024 09:14:22 0 Date of Last Pap Smear completed TREVOR SAMANIEGO RN [facility] 07/11/2024 09:13:34 Imaging Results None recorded. Procedure Notes None recorded. Medical Equipment None Reported. Allergies Allergen ID Allergen Name Allergen Category Reaction Reaction Severity Criticality Documentation Date Start Date Code Code System Note Provider Name and Address Organization Details Recorded Time 94416 sulfameth oxazole medicatio n hives Not available Not available 08/27/20232022 85463 RxNorm Not Available [facility] 4 05:10:01 82839 Medicinal product containin g penicilli n and acting as antibacte rial agent (product) medicatio n rash Not available Not available 08/27/20232022 31647 05 SNOMED Hives TREVOR SAMANIEGO RN [facility], [facility] 4 11:38:49 29483 Bactrim medicatio n rash Not available Not available 07/11/2024 12621 9 RxNorm TREVOR SAMANIEGO RN [facility], [facility] 4 11:38:35 Medications Name Sig Start [...] PATCH TOPICALLY TO THE SKIN EVERY WEEK 07/19 completed Not Available Not Available Not Available neomycin-po lymyxin-dex ameth 3.5 mg/mL-10,00 0 [...] Not Available Not Available No t Available Climara Pro 0.045 mg-0.015 mg/24 hr transdermal patch Apply 1 patch every week by transderm al route as directed, for menopausa l symptoms. 2023 active Not Available Not Available Not Avai lable escitalopra m 5 mg tablet Take 1 tablet by mouth once a day 10/11 completed Not Available Not Available Not Available Vitamin D3 50 mcg (2,000 unit) capsule Take 1 capsule by mouth once a day active Not Available Not Available No t Available Vitals Date Recorded Body height Body mass index (BMI) Provider Name and Address Organization Details Last Updated DateTime 07/11/2024 169.19 cm 25.2 kg/m2 DERICK DE LEON [address], [place], [address], [facility] 07/11/2024 12:44:37 Date Recorded Body weight Body temperature Oxygen saturation Oxygen saturation in Arterial blood by Pulse oximetry Heart rate Respiratory rate Systolic blood pressure Diastolic blood pressure Provider Name and Address Organization Details Last Updated DateTime 4 55583.9 1 g 98.1 [degF] 96 % 96 % 78 /min 14 /min 130 mm[Hg] 82 mm[Hg] TREVOR SAMANIEGO RN [facility] 4 11:42:09 Social History Question Answer Notes LastModified by Organizat ion Details LastModified Time Tobacco Smoking Status Former Smoker LEDY GRAVES RN [facility], [facility] 11/03/2023 07:23:28 Do You Have An [...] 07/11/2024 When Did You Quit Smoking? 11-15yearss incelastcimendy arette Quit Aug 2008 Information not available 07/11/2024 [...] Do You Have A Medical Power Of Apartment Leasing Consultant? No Information not available 07/11/2024 What Was [...] available 08/27/2023 05:14:41 Medical History Condition Response Breast Cancer N Lung Disease N Anesthesia Complications N Gastrointestinal Disease N Muscle, Joint, or Bone Problems N Vision or Eye Problems Y Cancer N Stroke Y Bladder or Kidney Problems N Neurologic Disorder N Liver Disease N Psychiatric/Mental Health Condition N Multiple Sclerosis N Brain Injury N Bleeding Disorder N Seizures/Epilepsy N Diverticulitis N Substance Abuse N Heart Disease N Pulmonary Embolism N Pre-Eclampsia N Gynecological History Statement/Question Response Date of Last Pap Smear 05/21/2020 Date of Last Colonoscopy Most Recent Mammogram 07/26/2023 Obstetrics History GPAL:G 0 P 0 0 0 0 Immunizations Vaccine Type Date Status Note Provider Nam e and Address Organization Details Recorded Time zoster recombinant 4 completed TREVOR SAMANIEGO RN [facility] 04/07/2024 15:17:55 Tdap 9 completed Not Available [facility] 08/27/2023 05:31:07 Tdap 9 completed Not Available [facility] 08/27/2023 05:31:07 Influenza, split virus, quadrivalent, PF 3 completed Not Available [facility] 08/27/2023 05:31:07 zoster recombinant 3 completed Not Available [facility] 08/27/2023 05:31:07 SARS-COV-2 (COVID-19) vaccine, UNSPECIFIED 1 completed Not Available [facility] 08/27/2023 05:31:07 SARS-COV-2 (COVID-19) vaccine, UNSPECIFIED 1 completed Not Available [facility] 08/27/2023 05:31:07 SARS-COV-2 (COVID-19) vaccine, UNSPECIFIED 1 completed Not Available [facility] 08/27/2023 05:31:08 Hep B, unspecified formulation 0 completed Not Available [facility] 08/27/2023 05:31:08 Hep B, unspecified formulation 5 completed Not Available [facility] 08/27/2023 05:31:08 Hep B, unspecified formulation 5 completed Not Available [facility] 08/27/2023 05:31:08 Hep B, unspecified formulation 5 completed Not Available [facility] 08/27/2023 05:31:08 influenza, unspecified formulation 5 completed Not Available [facility] 08/27/2023 05:31:08 influenza, unspecified formulation 0 completed Not Available [facility] 08/27/2023 05:31:08 influenza, unspecified formulation 2 completed Not Available [facility] 08/27/2023 05:31:08 influenza, unspecified formulation 2 completed Not Available [facility] 08/27/2023 05:31:08 influenza, unspecified formulation 1 completed Not Available [facility] 08/27/2023 05:31:08 influenza, unspecified formulation 9 completed Not Available [facility] 08/27/2023 05:31:08 influenza, unspecified formulation 4 completed [facility] [place] [facility] 06/14/2024 08:44:07 Past Encounters Encounter ID Performer Location Encounter Start Date Encounter Closed Date Diagnosis/Indication Diagnosis SNOMED-CT Code Diagnosis ICD10 Code [id number] DERICK DE LEON [address] [place] [address] 07/11/2024 11:27:30 07/11/2024 13:02:37 Hyperlipidemia 45516727 E78.5 Adult heal th examination 696186600 Z00.00 Screening mammography 24 378958 Z12.31 Gynecologi c examination 69090460 Z01.419 Gastroesop hageal reflux disease without esophagitis 654077138 K21.9 Essential hypertension 79684856 I10 Menopause present 218223 006 N95.1 Pain of ri ght shoulder joint 3039431290 6040311 M25.511 Patient ne w to provider [id number] 63717 Z76.89 Health Concerns Section Related Observation LastModified by Organization Detai ls LastModified Time None Recorded Concern Status LastModified by Organization Details LastModified Time None Recorded Payers Encounter Date Sequence Insurance Name Policy Number Policy Duncan Covered Member ID Duncan Member ID Guarantor Name 07/11/2024 1 [place] [facility] [id number] Jessy Long [id number] Jessy Long 07/11/2024 2 [facility] [id number] Jessy Long [id number] Jessy Long Notes Date Note Type Note Provider Name and Address Organization Details Recorded Time 07/11/2024 text/html Jessy is a 58-year-old female, presents for an annual exam with PAP. She reports a history of hypertension, hyperlipidemia, major depression, post-menopausal symptoms and migraines without aura. The patient is currently on estradiol 0.025 mg patch once weekly for postmenopausal symptoms. She mentions that her mood is okay and the estrogen patch helps with hot flashes, but she feels her body has adjusted after 2-3 months. She has a history of suicidal ideation on Depo-Provera, a progesterone. The patient experiences skin irritation from the estrogen patch and is considering alternative forms of estrogen.Ms. Long has an acute complaint of right shoulder pain for about a year, possibly from a fall last winter and caught herself right arm. no impact injury to bone.She describes the pain as restrictive and feels like it's ripping, located in the anterior part of the shoulder and radiating down the arm. She reports reduced range of motion, pain with lifting, reaching above her head, and during crunches. The patient denies numbness, tingling, or swelling in the shoulder. no weakness in right arm. The patient denies any worries about vaginal discharge, pain, or abnormal bleeding. She also denies breast changes, pain, lumps, or bumps. She has no chest pain, palpitations, or shortness of breath. Ms. Long denies any newupdates to family history. She reports no skin cancer history. Regarding her migraines, the patient does not take any rescue medications like triptans. She reports no aura, vision changes, or hearing changes. The patient denies any urinary incontinence or chronic pelvic pain. She has a history of infertility due to a fallopian tube removal in her mid-twenties so has never been . LMP over 5 years ago.estrogen patch does help with symptoms but irritates her skin. wondering about oral estrogen. DERICK DE LEON [address], [place], [address], [facility]. 07/18/2024 12:55:26 OBGyn Episode No OBEpisode recorded.
--- OUTSIDE RECORDS SUMMARY | 2024-08-04 00:28 | XMS_ITS | Encounter Summary ---
Author Organization [facility] Address [address] [place] [address] Care Team Providers Care Focuser Name Role Phone Unknown, Provider Primary Care Provider Amy chavez Encounter Details Date Type Department Care Team (Late st Contact Info) Description 04/07/2018 Results Only [facility] [phone] Fartun Ashton, HERI [address] [place] [address] Social History Tobacco Use Types [...] Name: ? GERMANJESSY ? Accession #: ? [id number] ? : ? 1965 (Age: 52) ??F ?Collect Date: ? 04/07/2018 ? Location: ? [facility] ? Receive Date: ? 04/11/2018 ? Provider: FARTUN ASHTON ADMITTING REPRESENTATIVE Copy to: ? Final Report SPECIMEN ADEQUACY [...] types 16,18,31,33,35, 39,45,51,52,56,58, 59,66, and 68 by basketball assembler mediated amplification. Comments Document reviewed and electronically signed by: ? System Interface ? Report date: 04/22/2018 By the signature above, the attending physician certifies that he/she has personally conducted a gross and/or microscopic examination of the described specimens and rendered or confirmed the above diagnosis. End of Report [facility] 04/07/2018 04/11/2018 us Fartun Ashton DIAGRAM CLERK PATHOLOGY ORDERABLES Final Resu lt [facility] [address] [place] [address] documented in this encounter Visit Diagnoses Not on filedocumented in this encounter Care Teams Focuser Relationship Specialty Start Date End Date Unknown, Provider, PCP - General 11/05/10 documented as of this encounter
--- OUTSIDE RECORDS SUMMARY | 2024-08-04 00:28 | XMS_ITS | Data Portability ---
Author Organization [place] - [facility], [facility] Address [place] [address] Assessment Encounter Date Assessment Date Assessment LastModified [...] Last Modified Time Details Appointments Follow Up 2024 01:00P Chandan BARBOZA Not available Not available Not available Lab lipid panel, serum - 1 PST obtained without issue 2023 [facility] (Registration ), [address] [place] [address] [place], [address], 07/18/2024 07:25:47 pap, LB + HR HPV 2023 [facility] (Registration ), [address] [place] [address] [place], [address], 07/20/2024 15:49:10 CMP, serum or plasma - 1 PST obtained without issue 2023 [facility] (Registration ), [address] [place] [address] [place], [address], 07/11/2024 20:05:56 Referral None recorded. Procedures None [...] in an hour and was seen at [facility] medical center. Her mother notably was from [place] at same age as pt., 58-years. She has mild HLD and HTN historica lly which she was trying to improve on w/diet and exercise after review of her normal PCP last note. Pt. refused to go to ED despite strong recommend ations to r/o acute stroke. 2023 024 [email or web address] [facility] [address], [place], [address], 10/29/2023 13:18:53 MAMMO, screening , bilateral - pt due 07/27/24 or later 2023 024 [email or web address] [facility] [address], [place], [address], 07/14/2024 08:24:59 MRI, shoulder, w/o contrast 2023 024 [email or web address] [facility] [address], [place], [address], 07/28/2024 08:22:40 Medication Orders amlodipin e 5 mg tablet 2023 024 YVON [id number], [address] [place] [address], [id number], 11/03/2023 07:43:03 Patient TargetsNo targets recorded. Patient Instructions Encounter Date Encounter Id Patient Instructions Last Modified By Organization Details Last Modified Time 10/27/2023 [id number] I am pete brooke you go to the ED to be evaluated. Not available 10/27/2023 16:36:02 07/11/2024 [id number] Nice to see you today Jessy your [...] support, we may need you to see PLANT SUPERINTENDENT at [facility] for initiation of potential oral contraceptive or [...] face in 3 months for Hormone reassement [email or web address] Not available 07/18/2024 12:55:00 Reason for Referral None Reported. Results Created Date Observation Date Name Description Value Unit Range Abnormal Flag Note LastModifiedBy Organization Detail LastModifiedTime 07/11/20 24 07/11/2024 COMPR EHENS TAN METAB OLIC PANEL calcium 9.3 mg/dL 8.5-10 .1 normal Not Available [address] [place], [address] 07/11/2024 20:05:56 07/11/20 24 07/11/2024 COMPR EHENS TAN METAB OLIC PANEL glucose 88 mg/dL 74-106 normal Not Available Bear arora [address] [place], [address] 07/11/2024 20:05:56 07/11/20 24 07/11/2024 COMPR EHENS TAN METAB OLIC PANEL BUN 11 mg/dL 7-18 normal Not Available Bear arora [address] [place], [address] 07/11/2024 20:05:56 07/11/20 24 07/11/2024 COMPR EHENS TAN METAB OLIC PANEL creatinine 1.0 mg/dL 0.55-1 .02 normal Not Available [address] [place], [address] 07/11/2024 20:05:56 07/11/20 24 07/11/2024 COMPR EHENS TAN METAB OLIC PANEL estimated GFR 65.71 mL/min /1.73M 2 The eGFR is calcu lated from a serum creat inine using the CKD-E PI 2020 equat ion. Other varia bles requi red for the equat ion are gende r and age; this equat ion does not inclu de a race coeff icien t. This equat ion has simil ar overa ll perfo rmanc e to previ ous equat ions excep t value s may diffe r, in parti cular , in patie nts with highe r value s of eGFR and young er-ag ed adult s. Not Available [address] [place], [address] 07/11/2024 20:05:56 07/11/20 24 07/11/2024 COMPR EHENS TAN METAB OLIC PANEL total protein 8.5 g/dL 6.4-8. 2 high Not Available [address] [place], [address] 07/11/2024 20:05:56 07/11/20 24 07/11/2024 COMPR EHENS TAN METAB OLIC PANEL albumin 4.3 g/dL 3.4-5. 0 normal Not Available [address] [place], [address] 07/11/2024 20:05:56 07/11/20 24 07/11/2024 COMPR EHENS TAN METAB OLIC PANEL bilirubin, total 0.37 mg/dL 0.2-1. 0 normal Not Available [address] [place], [address] 07/11/2024 20:05:56 07/11/2007/11/2024 COMPR EHENS TAN METAB OLIC PANEL alk phos 100 U/L 46-116 normal Not Available [address] [place], [address] 07/11/2024 20:05:56 07/11/20 24 07/11/2024 COMPR EHENS TAN METAB OLIC PANEL sodium 137 mmol/ L 136-14 5 normal Not Available [address] [place], [address] 07/11/2024 20:05:56 07/11/20 24 07/11/2024 COMPR EHENS TAN METAB OLIC PANEL potassium 3.9 mmol/ L 3.5-5. 1 normal Not Available [address] [place], [address] 07/11/2024 20:05:56 07/11/20 24 07/11/2024 COMPR EHENS TAN METAB OLIC PANEL chloride 101 mmol/ L 98-107 normal Not Available [address] [place], [address] 07/11/2024 20:05:56 07/11/20 24 07/11/2024 COMPR EHENS TAN METAB OLIC PANEL CO2 25.5 mmol/ L 21.0-3 2.0 normal Not Available [address] [place] [place], [address] 07/11/2024 20:05:56 07/11/20 24 07/11/2024 COMPR EHENS TAN METAB OLIC PANEL anion gap 10.5 mmol/ L 3-11 normal Not Available [address] [place], [address] 07/11/2024 20:05:56 07/11/20 24 07/11/2024 COMPR EHENS TAN METAB OLIC PANEL AST 55 U/L 15-37 high Not Available [address] [place], [address] 07/11/2024 20:05:56 07/11/20 24 07/11/2024 COMPR EHENS TAN METAB OLIC PANEL ALT 45 U/L 14-59 normal Not Available Bear arora [address] [place], [address] 07/11/2024 20:05:56 07/11/20 24 07/11/2024 LIPID 2 cholesterol 312 mg/dL <200 high Not Available [facility] (Registration ) [address] [place] [address] [place], [address], 07/11/2024 20:05:57 07/11/20 24 07/11/2024 LIPID 2 triglyceride 79 mg/dL <150 Not Available [facility] (Registration ) [address] [place] [address] [place], [address], 07/11/2024 20:05:57 07/11/20 24 07/11/2024 LIPID 2 HDL cholesterol 122 mg/dL 40-60 Not Available [facility] (Registration ) [address] [place] [address] [place], [address], 07/11/2024 20:05:57 07/11/20 24 07/11/2024 LIPID 2 calculated LDL 175 mg/dL <100 high Natio nal Renee stero l Educa tion Progr am (NCEP -ATPI II) class ifica tions : Renee stero l <200 mg/dL Syed able Renee stero l 200-2 39 mg/dL Borde rline High Renee stero l >or=2 40 mg/dL High HDL <40 mg/dL Low HDL >or=6 0 mg/dL High LDL <100 mg/dL Optim al LDL 100-1 29 mg/dL Near Optim al/Ab ove Optim al LDL 130-1 59 mg/dL Borde rline High LDL 160-1 89 mg/dL High LDL >or=1 90 mg/dL Very High *The above refer ence range is for adult s 18 years or older . Not Available [facility] (Registration ) [address] [place] [address] [place], [address], 07/11/2024 20:05:57 12/06/19 24 12/06/2023 MRI imagi ng repor t Patien t Name: Lucien Long Unit #: [id number] Loc: DI Orderi ng Provid er: Peg Vivas Accrehana t #: [id number] Status : REG CLI Primar y Care Provid er: Talib Sosa U. Date of Exam: 0 4 Sex: F Admiss ion Date: : 1964 Age: 58 Exam(s ) MR BRAIN WO EXAM: MR BRAIN WO CLINIC AL HISTOR Y: VISUAL DISTUR BANCE H53.9 TECHNI QUE: Multip lanar multis equenc e MRI of the brain was perfor med. COMPAR ELVIN: No priors for compar elvin. FINDIN GS: [...] IZED PARANA DUY SINUSE S/MAST OIDS:C lear. [place] : Normal flow void. PITUIT ROBBIE GLAND: Unrema rkable . There is no eviden ce of a supras ellar mass. OTHER FINDIN GS: None. IMPRES SANDRA: Unrema rkable MRI of the brain. DATA REPOSI TORY: Orderroxanna d By: Peg Vivas CC: ------ ------ ------ ------ ------ ------ ------ ------ ------ ------ ------ ------ - Dictat ed By: Albino Alonso M.D. 1307 130 Transc ribed By: Albino Alonso 130 This is privil eged, confid ential inform ation intend ed only for the provid er named. Any use or distri bution by any person other than this provid er is strict ly prohib ited. If you receiv e this report in error, please notify us immedi ately at [phone] and return the origin al report to us at the addres s above. Thank- you. emerita [facility] [address] [place], [address] 12/07/2023 17:51:25 12/06/19 24 12/06/2023 MRI imagi ng repor t Patien t Name: Lucien Long Unit #: [id number] Loc: DI Orderi ng Provid er: Nel Vivascristeljonathon brown Accoun t #: [id number] Status : REG CLI Primar y [...] occlus ion or signif icant stenos is. Gas Dispatcher ior Cerebr al Arteri es: Right: No aneury sm, occlus ion or signif icant stenos is. The right oil extractor ior cerebr al artery arises from the oil extractor ior commun icatin g artery which is [...] SANDRA: Normal MRA examin ation of the [place] . DATA REPOSI TORY: Ordere d By: Peg [...] error, please notify us immedi ately at [phone] and return the origin al report to us at the addres s above. Thank- you. emerita [facility] [address], [place], [address] 12/07/2023 17:51:26 12/06/19 24 12/06/2023 MRI imagi ng gabby t Garfield t Name: Lucien Long Unit #: [id number] Loc: DI Orderi ng Provid er: Peg Vivas Accoun t #: [id number] Status : REG CLI Primar y [...] occlus ion or signif icant stenos is. Inspector Eyeglass al Caroti d: Right: No eviden ce of occlus ion or signif icant stenos is. Left: No eviden ce of occlus ion or signif icant stenos is. Machine Zipper Trimmer al Caroti d: Right: No dissec tion, [...] error, please notify us immedi ately at [phone] and return the origin al report to us at the addres s above. Thank- you. emerita [facility] [address] [place], [address] 12/07/2023 17:51:26 04/30/20 24 03/06/2022 MAMMO , [...] record ed. [email or web address] Not Available 04/30 23:47:10 04/30/2006/04/2023 imagi ng/di agnos tic resul t No observ ation record ed. [email or web address] Not Available 04/30 23:47:11 Result Notes None recorded. Problems Name Problem SNOMED Code Status Onset Date Resolution Date Notes Provider Name and Address Organization Details Recorded Time Pain of right shoulder joint 755765922363 90423 Active [address], [place], [address], [facility] 4 12:45:11 Menopausa l syndrome 735911874 Active [address], [place], [address], [facility] 4 16:12:30 Migraine without aura, not refractor y 456442954 Active 2022 Problem Code: G43.009; Problem Code Type: ICD-10; [address], [place], [address], [facility] 4 12:11:39 Gastroeso phageal reflux disease without esophagit is 821629729 Active 2022 Problem Code: K21.9; Problem Code Type: ICD-10; [address], [place], [address], [facility] 4 12:11:00 Essential hypertens ion 50953566 Active 2022 3 - Comments only - Juan Carlos Pardo RPA - Trial of conservat tan measures to lower blood pressure. She is committin g to restartin g an exercise routine with healthier nutrition al habits. Advised to check blood pressure couple times weekly for the next few weeks and then we will review numbers. She does not add sodium to food Problem Code: I10; Problem Code Type: ICD-10; [address], [place], [address], [facility] 4 12:10:35 Hyperlipi demia 62775980 Active 2022 3 - Comments only - Juan Carlos Pardo RPA - With high HDL. Her LDL has been over 190. Statin recommend ed. She would like to work harder on nutrition . Recommend ed Mediterra nean diet. Fasting lipids prior to physical exam in 6 months. Problem Code: E78.5; Problem Code Type: ICD-10; [address], [place], [address], [facility] 4 12:11:20 Menopause present 995666185 Active 2022 3 - Comments only - Juan Carlos Pardo RPA - Postmenop ausal. Low-dose estrogen in the past did not help. Major depressio n with Depo shot. Trial of low-dose SSRI to start. Reviewed side effect profile and mechanism of action. Problem Code: N95.1; Problem Code Type: ICD-10; [address], [place], [address], [facility] 4 12:11:33 Low back pain 388885160 Active 2022 Problem Code: M54.50; Problem Code Type: ICD-10; [address], [place], [address], [facility] 4 12:12:07 Problem Notes None recorded. Procedures Surgical History Date Name Laterality Status Provider Name and Address Organization Details Recorded Time 4 extraction of cataract completed [address], [place], [address], [facility] 01/15/2024 08:15:56 3 Most Recent Mammogram completed TREVOR SAMANIEGO RN [facility] 07/11/2024 09:14:22 0 Date of Last Pap Smear completed TREVOR SAMANIEGO RN [facility] 07/11/2024 09:13:34 Imaging Results Imaging Date Name Status LastModified by Organiz [facility] Details LastModified Time 12/06/2023 MRI imaging report completed [address] [place], [address] 12/07/2023 17:51:25 12/06/2023 MRI imaging report completed [email or web address] [facility] [place], [address] 12/07/2023 17:51:26 12/06/2023 MRI imaging report completed [email or web address] [place], [address] 12/07/2023 17:51:26 03/06/2022 MAMMO, diagnostic completed Information [...] Name and Address Organization Details Recorded Time 93577 sulfameth oxazole medicatio n hives Not available Not available 08/27/20232022 57306 RxNorm Not Available [facility] 05:10:01 67614 Medicinal product containin g penicilli n and acting as antibacte rial agent (product) medicatio n rash Not available Not available 08/27/20232022 59418 05 SNOMED Hives EVELIO JON, [facility] 11:38:49 01633 Bactrim medicatio n rash Not available Not available 07/11/2024 73341 9 RxNorm TREVOR SAMANIEGO RN [facility], [facility] 11:38:35 Medications Name Sig Start Date Stop [...] mm[Hg] VIRGINIA CARPENTER [address], [place], [address], [facility] 4 16:07:45 Date Recorded Body height Body mass index (BMI) Body weight Body temperature Respiratory rate Heart rate Systolic blood pressure Diastolic blood pressure Provider Name and Address Organization Details Last Updated DateTime 4 169.19 cm 26.2 kg/m2 06424.4 6 g 97.3 [degF] 16 /min 72 /min 150 mm[Hg] 102 mm[Hg] LEDY GRAVES RN [facility] 4 07:22:49 Date Recorded Body height Body mass index (BMI) Body weight Body temperature Respiratory rate Oxygen saturation Oxygen saturation in Arterial blood by Pulse oximetry Heart rate Systolic blood pressure Diastolic blood pressure Provider Name and Address Organization Details Last Updated DateTime 4 169.19 cm 25.8 kg/m2 95604.8 4 g 98.6 [degF] 16 /min 98 % 98 % 98 /min 124 mm[Hg] 74 mm[Hg] ANTWAN ESTEBAN RN [facility] 4 13:47:52 Date Recorded Body height Body mass index (BMI) Provider Name and Address Organization Details Last Updated DateTime 07/11/2024 169.19 cm 25.2 kg/m2 DERICK DE LEON [address], [place], [address], [facility] 07/11/2024 12:44:37 Date Recorded Body weight Body temperature Oxygen saturation Oxygen saturation in Arterial blood by Pulse oximetry Heart rate Respiratory rate Systolic blood pressure Diastolic blood pressure Provider Name and Address Organization Details Last Updated DateTime 4 79875.9 1 g 98.1 [degF] 96 % 96 % 78 /min 14 /min 130 mm[Hg] 82 mm[Hg] TREVOR ADEN, RN [facility] 11:42:09 Social History Question Answer Notes LastModified by Organizat ion Details LastModified Time Tobacco Smoking Status Former Smoker LEDY GRAVES RN [facility], [facility] 11/03/2023 07:23:28 Do You Have An Advance [...] Do You Have A Medical Power Of Business Analyst Manager? No Information not available 07/11/2024 What [...] zoster recombinant 4 completed TREVOR SAMANIEGO RN [facility] 04/07/2024 15:17:55 Tdap 9 completed [facility] Available [facility] 08/27/2023 05:31:07 Tdap 9 completed Not Available [facility] 08/27/2023 05:31:07 Influenza, split virus, quadrivalent, PF 3 completed Not Available [facility] 08/27/2023 05:31:07 zoster recombinant 3 completed Not Available [facility] 08/27/2023 05:31:07 SARS-COV-2 (COVID-19) vaccine, UNSPECIFIED 1 completed Not Available [facility] 08/27/2023 05:31:07 SARS-COV-2 (COVID-19) vaccine, UNSPECIFIED 1 completed Not Available [facility] 08/27/2023 05:31:07 SARS-COV-2 (COVID-19) vaccine, UNSPECIFIED 1 completed Not Available [facility] 08/27/2023 05:31:08 Hep B, unspecified formulation 0 completed Not Available [facility] 08/27/2023 05:31:08 Hep B, unspecified formulation 5 completed Not Available [facility] 08/27/2023 05:31:08 Hep B, unspecified formulation 5 completed Not Available [facility] 08/27/2023 05:31:08 Hep B, unspecified formulation 5 completed Not Available [facility] 08/27/2023 05:31:08 influenza, unspecified formulation 5 completed Not Available [facility] 08/27/2023 05:31:08 influenza, unspecified formulation 0 completed Not Available [facility] 08/27/2023 05:31:08 influenza, unspecified formulation 2 completed Not Available [facility] 08/27/2023 05:31:08 influenza, unspecified formulation 2 completed Not Available [facility] 08/27/2023 05:31:08 influenza, unspecified formulation 1 completed Not Available [facility] 08/27/2023 05:31:08 influenza, unspecified formulation 9 completed Not Available [facility] 08/27/2023 05:31:08 influenza, unspecified formulation 4 completed Lisa cotter [facility] 06/14/2024 08:44:07 Past Encounters Encounter ID Performer Location Encounter Start Date Encounter Closed Date Diagnosis/Indication Diagnosis SNOMED-CT Code Diagnosis ICD10 Code [id number] VIRGINIA CARPENTER [facility] [address] [place] [address] 10/27/2023 15:41:28 10/27/2023 16:49:29 Elevated blood-pressure reading without diagnosis of hypertension 333392086 R03.0 Hyperlipidemia 40604082 E78.5 Visual disturbance 17703 001 H53.9 Headache 70368174 R51.9 [id number] JUAN CARLOS PARDO PA-C [facility] [address] [place] [address] 11/03/2023 07:14:37 11/03/2023 07:54:26 Essential hypertension 56724338 I10 [id number] JUAN CARLOS PARDO PA-C [facility] [address] [place] [address] 12/30/2023 13:23:39 12/30/2023 16:32:16 Hyperlipidemia 14098786 E78.5 Pre-surger y evaluation 177939033 Z01.672 [id number] TREVOR SAMANIEGO RN [facility] [address] [place] [address] 04/07/2024 09:45:00 04/07/2024 15:24:20 Active or passive immunization 081268761 Z23 [id number] DERICK DE LEON [facility] [address] [place] [address] 07/11/2024 11:27:30 07/11/2024 13:02:37 Hyperlipidemia 50670405 E78.5 Adult heal th examination 030686058 Z00.00 Screening mammography 24 497317 Z12.31 Gynecologi c examination 19094866 Z01.419 Gastroesop hageal reflux disease without esophagitis 983133725 K21.9 Essential hypertension 73267837 I10 Menopause present 190733 006 N95.1 Pain of ri ght shoulder joint 7619214182 3720506 M25.511 Patient ne w to provider 0620115786 14740 Z76.89 Health Concerns Section Related Observation LastModified by Organization Detai ls LastModified Time None Recorded Concern Status LastModified by Organization Details LastModified Time None Recorded Advance Directives Directive N: Payers Encounter Date Sequence Insurance Name Policy Number Policy Duncan Covered Member ID Duncan Member ID Guarantor Name 10/27/2023 1 [place] [facility] [id number] Jessy Long [id number] Jessydoyle Long 10/27/2023 2 [facility] [id number] Jessy Rizviper [id number] 2 Jessy M Leiformerly [facility] 11/03/2023 1 [place] [facility] [id number] Jessy Long [id number] Jessy Long 11/03/2023 2 [facility] [id number] Jessy Rizviper [id number] 2 Jessy M Dmitriformerly [facility] 12/30/2023 1 [place] [facility] [id number] eJssy Long [id number] Jessy Hawley Leiper 12/30/2023 2 [facility] [id number] Jessy Rizviper [id number] 2 Jessydoyle Rizviper 04/07/2024 1 [place] [facility] [id number] Jessy Rizviper [id number] Jessy Chandan Leiper 04/07/2024 2 [facility] [id number] Jessy Hawley Leiper [id number] 2 Jessydoyle Rizviper 07/11/2024 1 [place] [facility] [id number] Jessy Rizviper [id number] Jessy Chandan Leiper 07/11/2024 2 [facility] [id number] Jessy Rizviper [id number] 2 Jessy Rizviper Notes Date Note Type Note Provider Name [...] food nutrients since yesterday taking her to appt. out of [place] for f/u medical appointments. She slept at hot in [place] last night and drove back from [place], [place] this morning without breakfast. Pt. record states she has had migraine w/out aura and pt. reports hx. of prior TIA. Record review shows 04/09/2015 note from [facility] from ED as pt. had sudden onset expressive aphasia, was brought to ED, BP mildly elevated 140's/80's. The note specificies orders for MRI of head, MRI w/angiography of carotids + [place]. Results of imaging studies not [...] not had a sleep study. [address], [place], [address], [facility]. 10/28/2023 08:51:48 11/03/2023 text/html Persistently elevated blood pressure following ocular disturbance last week when she had right eye visual blurriness lasting 10 minutes without other associated symptoms. Similar to migraines that she has had in past but without headache developing. Has been feeling at her baseline health otherwise. [address], [place], [address], [facility]. 11/03/2023 07:51:47 12/30/2023 text/html Jessy is here p reop evaluation for cataract surgery. To be performed by Dr. Mg. Feeling well. She has lost weight with healthier eating. Here bp has come down as well. [address], [place], [address], [facility]. 12/30/2023 14:05:27 07/11/2024 text/html Jessy is a 58-year-old female, [...] irritates her skin. wondering about oral estrogen. LISA BARBOZA, DERICK [address], [place], [address], [facility]. 07/18/2024 12:55:26 OBGyn Episode No OBEpisode recorded.
--- OUTSIDE RECORDS SUMMARY | 2024-08-04 00:28 | XMS_ITS | Encounter Summary ---
[place] [address] Care Team Providers Care Retail Stocker Name Role Phone Hai Voss MD Primary Care Provider [phone] Encounter Details Date Type Department Care Team (Late st Contact Info) Description 09/30/2011 Orders [place] [address] Delmer Ortega PA Social History Tobacco Use Types Packs/Day [...] This is a non-reportable exam. Delmer COLEMAN [facility] FILM LIBRARY ORD ERABLES RAD [address] [facility] [place] [address] documented in this encounter Visit Diagnoses Not on filedocumented in this encounter Care Teams Retail Stocker Relationship Specialty Start Date End Date Hai Voss MD [address] [place] [phone] PCP - General 07/14/10 10/06/11 documented as of this encounter
--- OUTSIDE RECORDS SUMMARY | 2024-08-04 00:28 | XMS_ITS | Referral Summary ---
Author Organization [facility] Address [address] [place] [address] Care Team Providers Care Warehouse Supervisor 3Rd Shift Name Role Phone Unknown, Provider Primary Care Provider Unava ilable Encounters Date Type Department Care Team Description 07/14/2024 Lab Requisition [facility] Pathology & Laboratory Medicine - [facility] [address] [place] [address] Lisa Siegel FNP Encounter for screening for [...] file Plan of Treatment Not on file Procedures Procedure Name Priority Date/Time Associated Diagnosis [...] Imaging System with Manual Evaluation 07/20/2024 14:54 EST [facility] Specimen Adequacy Satisfactory for Evaluation - transformation zone component present 07/20/2024 14:54 EST [facility] General Categorization Negative for intraepithelial lesion or malignancy 07/20/2024 14:54 EST [facility] Attestation . 07/20/2024 14:54 [facility] at [address]54 Clinical History See below 07/20/20 14:54 [facility] Performing Lab [facility] 07/20/2024 14:54 [facility] Scanned Images 07/20/2024 14:54 [facility] HPV High Risk type 16, PCR Negative 07/20/2024 14:54 [facility] HPV High Risk type 18, PCR Negative 07/20/2024 14:54 [facility] HPV Other High Risk Types, PCR Negative The following Other High Risk HPV types were not detected: 31,33, 35, 39, 45, 51, 52, 56, 58, 59, 66 and 68. 07/20/2024 14:54 [facility] Pap Test CERVIX UTERI STRUCTURE / Unknown 07/11/2024 12:30 EST 07/14/2024 12:37 EST Lisa Siegel COILED TUBING SUPERVISOR PATHOLOGY ORDERABLES Final Re sult [facility] [address] [place], [place] [id number] * HPV DNA DETECTION WITH GENOTYPING, PCR (07/11/2024 12:30 EST) HPV High Risk type 16, PCR Negative Negative 07/20/2024 14:54 [facility] HPV High Risk type 18, PCR Negative Negative 07/20/2024 14:54 [facility] HPV other High Risk types, PCR Negative Negative 07/20/2024 14:54 [facility] Comment: The following Other High Risk HPV types were not detected: ??31,33, 35, 39, 45, 51, 52, 56, 58, 59, 66 and 68. Pap Test CERVIX UTERI STRUCTURE / Unknown 07/11/2024 12:30 EST 2024 11:51 EST us Lisa Siegel COILED TUBING SUPERVISOR MICROBIOLOGY - GENERAL ORDERA BLES Final Result [facility] [address] [place] [address] from Last 3 Months Care Teams Warehouse Supervisor 3Rd Shift Relationship Specialty Start Date End Date Unknown, Provider, PCP - General 11/05/10
--- OUTSIDE RECORDS SUMMARY | 2024-08-04 00:28 | XMS_ITS | Encounter Summary ---
Author Organization [facility] Address [address] [place] [address] Care Team Providers Care Supervisor Cartography Name Role Phone Unknown, Provider Primary Care Provider Amy chavez Encounter Details Date Type Department Care Team (Late st Contact Info) Description 11/04/2010 Results Only [facility] [phone] Fartun Ashton, HERI [address] [place] [address] Social History Tobacco Use Types [...] ? JESSY PORTER ? Accession #: ? [id number] ? : ? 1965 (Age: 45) ??F ?Collect Date: ? 11/04/2010 ? Location: ? [facility] ? Receive Date: ? 11/05/2010 ? Provider: FARTUN O ASHTON ROLLER EMBOSSER ? Copy to: ? Final Report ? SPECIMEN ADEQUACY ? Satisfactory for Evaluation ? - transformation zone component present ? GENERAL CATEGORIZATION ? Negative for Intraepithelial Lesion or Malignancy ? Last Menstural Period: 03/04/11 ? Other: Additional clinical information: Prior OCP in 1990. Color Straining Bag Washer clinical & ? treatment hx negative ? [...] TRIVEDI 11/04/2010 11/05/2010 us Fartun O Ashton AIRLINE RADIO OPERATOR PATHOLOGY ORDERABLES Final Resu lt [facility] [address] [place] [address] documented in this encounter Visit Diagnoses Not on filedocumented in this encounter Care Teams Supervisor Cartography Relationship Specialty Start Date End Date Unknown, Provider, PCP - General 11/05/10 documented as of this encounter
--- OUTSIDE RECORDS SUMMARY | 2024-08-04 00:28 | XMS_ITS | Encounter Summary ---
Author Organization [facility] Address [address] [place] [address] Care Team Providers Care Canoe Inspector Name Role Phone Unknown, Provider Primary Care Provider Amy chavez Encounter Details Date Type Department Care Team (Late st Contact Info) Description 10/29/2011 Results Only [facility] [phone] Fartun Ashton, HERI [address] [place] [address] Social History Tobacco Use Types [...] ? JESSY PORTER ? Accession #: ? [id number] : ? 1965 (Age: 46) ??F ?Collect Date: ? 10/29/2011 Location: ? [facility] ? Receive Date: ? 10/30/2011 Provider: ?FARTUN ASHTON LIVE HANGER Copy to: ? Specimen/Source: ?Pap Test, Cervix/Endocervix, [...] Report [facility] 10/29/2011 10/30/2011 us Fartun Ashton SAFETY ASSOCIATE PATHOLOGY ORDERABLES Final Resu lt [facility] [address] [place] [address] documented in this encounter Visit Diagnoses Not on filedocumented in this encounter Care Teams Canoe Inspector Relationship Specialty Start Date End Date Unknown, Provider, PCP - General 11/05/10 documented as of this encounter
--- OUTSIDE RECORDS SUMMARY | 2024-08-04 00:28 | XMS_ITS | Encounter Summary ---
Author Organization [facility] [place] [address] Care Team Providers Care Maintenance Job Titles Name Role Phone Hai Voss MD Primary Care Provider [phone] Encounter Details Date Type Department Care Team ([facility] st Contact Info) Description 07/18/2010 1:45 PM EST Office Visit [address] [address] Shamar Sahni MD [facility] [place] [address] Social History Tobacco Use Types Packs/Day Years [...] on filedocumented in this encounter Care Teams Maintenance Job Titles Relationship Specialty Start Date End Date Hai Voss MD [address] [place] [phone] PCP - General 07/14/10 10/06/11 documented as of this encounter
--- OUTSIDE RECORDS SUMMARY | 2024-08-04 00:28 | XMS_ITS | Encounter Summary ---
[place] [address] Care Team Providers Care Hose Inspector And Patcher Name Role Phone Hannah Sosa MD Primary Care Provider + Encounter Details Date Type Department Care Team (Late st Contact Info) Description 08/14/2020 12:00 PM EST Office Visit Occupational Therapy at [facility] [address] [place] [address] Lobito Kelly, OT [facility] PHYSICAL MEDICINE & [place] [address] Pain in left elbow Social History Tobacco [...] arm documented in this encounter Care Teams Hose Inspector And Patcher Relationship Specialty Start Date End Date Hannah Sosa MD PCP - General Family Medicine 12/15/19 documented as of this encounter
--- OUTSIDE RECORDS SUMMARY | 2024-08-04 00:28 | XMS_ITS | Encounter Summary ---
[place] [address] Care Team Providers Care De Icer Finisher Name Role Phone Hannah Sosa MD Primary Care Provider + Reason for Visit * Reason Comments Follow-up Encounter Details Date Type Department Care Team (Late st Contact Info) Description 12/15/2019 3:30 PM EDT Office Visit Dermatology at [address] [phone] Júnior Block MD [address] [facility] [place] [address] Seborrheic keratosis; Nevus Social History Tobacco Use [...] unspecified documented in this encounter Care Teams De Icer Finisher Relationship Specialty Start Date End Date Hannah Sosa MD PCP - General Family Medicine 12/15/19 documented as of this encounter
--- OUTSIDE RECORDS SUMMARY | 2024-08-04 00:28 | XMS_ITS | Encounter Summary ---
Author Organization [facility] Address [facility] [place] [address] Care Team Providers Care Service Dispatcher Name Role Phone Abe Plummer MD Primary Care Provider [phone] Encounter Details Date Type Department Care Team (Latest Contact Info) Description 10/07/2011 3:44 PM EST - 10/07/2011 11:59 PM EST Hospital Encounter XRay at [address] [place] [address] Mechanical low back pain Social History Tobacco [...] COMPARISON STUDY: ??None. FINDINGS: ??There are five zom-isf-ebaybxq lumbar-type vertebral bodies. No spondylolisthesis or subluxation. Flexion/extension images reveal no instability. There is L5-S1 facet arthropathy. The pedicles are intact. Procedure Note Romy Adkins MD - 10/08/2011 LUMBAR SPINE, AP AND FLEXION/EXTENSION LATERAL IMAGES: HISTORY: pain COMPARISON STUDY: None. FINDINGS: There are five faq-lep-movgowl lumbar-type vertebral bodies. No spondylolisthesis or subluxation. Flexion/extension images reveal no instability. There is L5-S1 facet arthropathy. The pedicles are intact. IMPRESSION IMPRESSION: No subluxation. No instability. L5-S1 facet arthropathy. Don Carmichael MD IMG DX ORDERABLES documented in this encounter Visit Diagnoses Diagnosis Mechanical low back pain Lumbago documented in this encounter Care Teams Service Dispatcher Relationship Specialty Start Date End Date Abe Plummer MD PCP - General 10/07/11 12/14/19 documented as of this encounter
--- OUTSIDE RECORDS SUMMARY | 2024-08-04 00:28 | XMS_ITS | Encounter Summary ---
Author Organization [facility] Address [address] [place] [address] Care Team Providers Care Manager In Training Name Role Phone Unknown, Provider Primary Care Provider Alanava ilable Encounter Details Date Type Department Care Team (Latest Contact Info) Description 07/14/2024 Lab Requisition [facility] Pathology & Laboratory Medicine - [facility] [address] [place] [address] Lisa Siegel FNP [address] [facility] [address] [place] [address] Encounter for screening for human papillomavirus (HPV); Encounter for screening for malignant neoplasm of cervix; Encounter for general adult medical examination without abnormal findings Social History Tobacco Use Types Packs/Day Years [...] general adult medical examination without abnormal findings documented in this encounter Results * HPV DNA DETECTION WITH GENOTYPING, PCR (07/11/2024 12:30 EST) HPV High Risk type 16, PCR Negative Negative 07/20/2024 14:54 EST [facility] HPV High Risk type 18, PCR Negative Negative 07/20/2024 14:54 [facility] HPV other High Risk types, PCR Negative Negative 07/20/2024 14:54 [facility] Comment: The following Other High Risk HPV types were not detected: ??31,33, 35, 39, 45, 51, 52, 56, 58, 59, 66 and 68. Pap Test CERVIX UTERI STRUCTURE / Unknown 07/11/2024 12:30 EST 2024 11:51 EST Lisa Siegel ENTRY LEVEL ADMINISTRATIVE ASSISTANT MICROBIOLOGY - GENERAL ORDERA BLES Final Result [facility] [address] [place], [place] [id number] * PAP TEST (07/11/2024 12:30 EST) Specimens A. Cervix and/or Endocervix , ThinPrep Imaging System with Manual Evaluation 07/20/2024 14:54 [facility] Specimen Adequacy Satisfactory for Evaluation - transformation zone component present 07/20/2024 14:54 [facility] General Categorization Negative for intraepithelial lesion or malignancy 07/20/2024 14:54 [facility] Attestation . 07/20/2024 14:54 [facility] at 1454 Clinical History See below 07/20/20 14:54 [facility] Performing Lab [facility] 07/20/2024 14:54 [facility] Scanned Images 07/20/2024 14:54 [facility] HPV High Risk type 16, PCR Negative 07/20/2024 14:54 [facility] HPV High Risk type 18, PCR Negative 07/20/2024 14:54 [facility] HPV Other High Risk Types, PCR Negative The following Other High Risk HPV types were not detected: 31,33, 35, 39, 45, 51, 52, 56, 58, 59, 66 and 68. 07/20/2024 14:54 EST [facility] Pap Test CERVIX UTERI STRUCTURE / Unknown 07/11/2024 12:30 EST 07/14/2024 12:37 EST Lisa Siegel ENTRY LEVEL ADMINISTRATIVE ASSISTANT PATHOLOGY ORDERABLES Final Re sult [facility] [address] [place] [phone] documented in this encounter Visit Diagnoses Diagnosis Encounter for screening for human papillomavirus (HPV) Special screening examination for human papillomavirus (HPV) Encounter for screening for malignant neoplasm of cervix Screening for malignant neoplasm of the cervix Encounter for general adult medical examination without abnormal findings Unspecified general medical examination documented in this encounter Care Teams Manager In Training Relationship Specialty Start Date End Date Unknown, Provider, PCP - General 11/05/10 documented as of this encounter
--- OUTSIDE RECORDS SUMMARY | 2024-08-04 00:28 | XMS_ITS | Encounter Summary ---
Author Organization [facility] Address [address] [place] [address] Care Team Providers Care Spoilage Worker Name Role Phone Unknown, Provider Primary Care Provider Amy chavez Encounter Details Date Type Department Care Team (Late st Contact Info) Description 03/02/2017 Results Only [facility] [phone] Fartun Ashton, HERI [address] [place] [address] Social History Tobacco Use Types [...] Name: ? GERMANJESSY ? Accession #: ? [id number] ? : ? 1965 (Age: 51) ??F ?Collect Date: ? 03/02/2017 ? Location: ? [facility] ? Receive Date: ? 03/04/2017 ? Provider: FARTUN ASHTON LOOM FIXER Copy to: ? Final Report SPECIMEN ADEQUACY [...] types 16,18,31,33,35, 39,45,51,52,56,58, 59,66, and 68 by burial agent mediated amplification. Comments Document reviewed and electronically signed by: ? System Interface ? Report date: 03/15/2017 By the signature above, the attending physician certifies that he/she has personally conducted a gross and/or microscopic examination of the described specimens and rendered or confirmed the above diagnosis. End of Report [facility] 03/02/2017 03/04/2017 us Fartun Ashton APRN PATHOLOGY ORDERABLES Final Resu lt [facility] [address] [place] [address] documented in this encounter Visit Diagnoses Not on filedocumented in this encounter Care Teams Spoilage Worker Relationship Specialty Start Date End Date Unknown, Provider, PCP - General 11/05/10 documented as of this encounter
--- OUTSIDE RECORDS SUMMARY | 2024-08-04 00:28 | XMS_ITS | Encounter Summary ---
Author Organization [facility] Address [address] [place] [address] Care Team Providers Care Community Development Coordinator Name Role Phone Unknown, Provider Primary Care Provider Amy chavez Encounter Details Date Type Department Care Team (Late st Contact Info) Description 11/20/2021 Lab Requisition [facility] Pathology & Laboratory Medicine - [facility] [address] [place] [address] Outr Resulting Lab, Provider Social History Tobacco [...] >1,000.0 See Note mIU/mL 11/21/2021 9:30 EDT [facility] Comment: Reference Range for Hep B Surface Ab, Quant: Positive: >= 10.0 mIU/mL Negative: ??< 10.0 mIU/mL Patient is presumed to be immune to infection with Hepatitis B Virus. Hep B Surface Ab, Qualitative Positive See Note 11/21/2021 9:30 EDT [facility] Comment: Reference Range for Hep B Surface Ab, Qual: Unvaccinated: ??Negative Vaccinated: ??Positive Blood VENOUS BLOOD / Unknown 11/20/2021 8:34 EDT 11/20/2021 21:13 EDT us Provider Outr Resulting Lab CHEMISTRY & BLOOD GA S ORDERABLES Final Result Performing Organization Address City/[facility] Co de Phone Number [facility] [address] [place] [address] * MEASLES IGG AB (11/20/2021 8:34 EDT) Measles IgG Ab Positive See Note 11/21/2021 13:34 EDT [facility] Comment:Presence of detectab le measles virus IgG antibodies. Blood VENOUS BLOOD / Unknown 11/20/2021 8:34 EDT 11/20/2021 21:13 EDT us Provider Outr Resulting Lab IMMUNOLOGY AND SEROL OGY ORDERABLES Final Result Performing Organization Address City/[facility] Co de Phone Number [facility] [address] [place] [address] documented in this encounter Visit Diagnoses Not on filedocumented in this encounter Care Teams Community Development Coordinator Relationship Specialty Start Date End Date Unknown, Provider, PCP - General 11/05/10 documented as of this encounter
== END 2024-08-04 00:46 ==
LOC: DI 00:27
PROVIDERS: PCP Physician Assistant; Visit Provider Nurse Practitioner Family
DX: Z12.31 Encounter for screening mammogram for malignant neoplasm of breast (principal); R92.323 Mammographic fibroglandular density, bilateral breasts; D24.1 Benign neoplasm of right breast
CPT/HCPCS: 77063; 77067

== ENCOUNTER 2024-08-14 01:41 | Outpatient (CLI) | payer BC, OTHER, SELFPAY ==
--- NOTE | 2024-08-14 | DI.MRI_ITS ---
Exam(s) MR UPPER JOINT RT WO EXAM: MR UPPER JOINT RT WO CLINICAL HISTORY: Pain of rt shoulder joint, M25.511 TECHNIQUE: Multiplanar multisequence MRI of the shoulder was performed. COMPARISON: None. There are no plain films of the shoulder available at the time of this MRI interp retation. FINDINGS: MARROW:There is no evidence of fracture, Hill-Sachs deformity, nor ominous osseous lesions. GLENOHUMERAL JOINT: A small glenohumeral joint effusion. Some synovial thickening is noted in the fl uid-filled inferior recess. Fluid extends into the subcoracoid recess. There is mild articular cart ilage loss. There is a small osteophyte on the inferior articular surface of the humeral head. Ther e are no degenerative subarticular cysts in the osseous glenoid. ROTATOR CUFF MECHANISM: AC JOINT/ACROMIUM: There are minimal degenerative changes in the AC joint. There is no evidence of os acromiale. Supraspinatus: Mild tendinitis signal. No high-grade tear. No atrophy. There is no fluid in the reece bacromial-subdeltoid bursa. Infraspinatus: Mild tendinitis signal. No high-grade tear. No atrophy. Teres Minor: Intact. No evidence of tear nor muscle atrophy. Subscapularis/anterior cuff: There is some tendinitis signal in the tendon just anterior to the lesse r tuberosity. No full-thickness tear. No atrophy. BICEPS TENDON: Exhibits normal position within the intertubercular groove. No evidence of tear. Mild fluid noted in the tendon sheath. LABRUM: There is some signal abnormality in the superior labrum posterior to the biceps insertion ext ending through the upper posterior labrum. Remainder of the posterior labrum appears intact. There is some fluid signal evident on 2 6 S of axial images between the mid aspect of the anterior labrum a nd the osseous glenoid consistent with labral tearing. There does not appear to be a Bankart-type le rajinder. IMPRESSION: 1. There is some tendinitis signal evident in the supraspinatus and infraspinatus tendons as well as within the subscapularis-anterior cuff tendon immediately anterior to the lesser tuberosity. There i s no evidence of full-thickness rotator cuff tear nor atrophy. There is no fluid in the subacromial- subdeltoid bursa. There are minimal degenerative changes in the AC joint. 2. There are some degenerative changes in the glenohumeral joint as described above and there is also a small-moderate size glenohumeral joint effusion as well as some synovial thickening. There is als o a small 4 x 3 mm loose body within the joint fluid within the most medial aspect of the sub coracoi d recess.. 3. There appear to be labral tears in the mid anterior labrum as well as posterior superior labrum. 4. The biceps tendon is intact and nondisplaced. There is small amount of fluid in its tendon sheat h which is most probably related to the glenohumeral joint effusion extending down sheath. There are no loose bodies evident within the biceps tendon sheath. DATA REPOSITORY:
== END 2024-08-14 02:01 ==
LOC: DI 01:41
PROVIDERS: PCP Physician Assistant; Visit Provider Nurse Practitioner Family
DX: M19.011 Primary osteoarthritis, right shoulder (principal)
CPT/HCPCS: 73221

== ENCOUNTER 2024-09-13 15:38 | Outpatient (CLI) | payer OTHER, SELFPAY ==
--- NOTE | 2024-09-13 14:20 | DI.RAD_ITS ---
Exam(s) XR SHOULDER RT COMPLETE 2+V EXAM: XR SHOULDER RT COMPLETE 2+V CLINICAL HISTORY: Right shoulder PER Dr Wallis. TECHNIQUE: 2D digital imaging was performed. COMPARISON: MR MR UPPER JOINT RT WO from 08/14/2024 FINDINGS: 3 views No evidence of fracture or dislocation of glenohumeral joint. Subacromial space does not appear dimi nished and there are no soft tissue calcifications within the subacromial space. There are mild dege nerative changes in the glenohumeral joint, best seen on the Grashey view. AC joint appears unremarkable. Coracoid process unremarkable. Bone density normal. No osseous lesi ons. In the inferior aspect of the field of view there are calcific densities in the soft tissues adjacent to the proximal half of the humeral diaphysis. These do not appear to be within the biceps tendon s george. IMPRESSION: Mild degenerative changes in the glenohumeral joint. Other findings as above. DATA REPOSITORY: RADIATION DOSE DELIVERED:
== END 2024-09-13 15:39 | disposition home or self-care (01) ==
LOC: DIORS 15:39
PROVIDERS: PCP Nurse Practitioner Family; Visit Provider Student in an Organized Health Care Education/Training Program
DX: M19.011 Primary osteoarthritis, right shoulder (principal)
CPT/HCPCS: 73030

== ENCOUNTER 2024-10-05 13:09 | Outpatient (REF) | payer OTHER, SELFPAY ==
[2024-10-05 14:55] LABS: HCT 40.3 % (36.0-46.0); HGB 13.7 g/dL (11.2-15.7); MCH 31.7 pg (27.0-33.0); MCV 93 fL (80-95); MPV 9.5 fL (8.0-11.0); Platelet Count 249 10^3/uL (130-400); RBC 4.32 10^6/uL (3.93-5.22); RDW 13.2 % (11.7-14.6); RDW-SD 45.1 fL; WBC 7.08 10^3/uL (4.4-10.8)
== END 2024-10-05 13:10 | disposition home or self-care (01) ==
LOC: NCHCN 13:09
PROVIDERS: PCP Nurse Practitioner Family; Visit Provider Nurse Practitioner Family
DX: N95.0 Postmenopausal bleeding (principal)
CPT/HCPCS: 85027

== ENCOUNTER 2024-11-23 18:00 | Outpatient (REF) | payer OTHER, SELFPAY ==
[2024-11-23 19:52] LABS: ALT 46 U/L (14-59); AST 64 U/L (15-37); Alkaline Phosphatase 107 U/L (46-116); BUN 10 mg/dL (7-18); Bilirubin, Total 0.2 mg/dL (0.2-1.0); CREATININE 1.1 mg/dL (0.55-1.02); Calcium 9.4 mg/dL (8.5-10.1); Chloride 106 mmol/L (98-107); Estimated GFR 58.24 (mL/min/1.73m2); Glucose 91 mg/dL (74-106); Sodium 143 mmol/L (136-145); TSH 1.75 uIU/mL (0.36-3.74); Total Protein 7.3 g/dL (6.4-8.2)
[2024-11-23 20:41] LABS: FREE T4 0.65 ng/dL (0.76-1.46)
[2024-11-24 17:26] LABS: T3, Total 130 ng/dL (97-169)
== END 2024-11-23 18:01 | disposition home or self-care (01) ==
LOC: NCHCN 18:00
PROVIDERS: PCP Nurse Practitioner Family; Visit Provider Nurse Practitioner Family
DX: R23.2 Flushing (principal)
CPT/HCPCS: 80053; 84439; 84443; 84480

== ENCOUNTER 2025-01-31 10:02 | Emergency (ER) | payer OTHER, SELFPAY ==
[2025-01-31 10:14] VITALS: BP 163/109; PULSE 108; RESP 20; TEMP 36.4; O2SAT 98
--- NOTE | 2025-01-31 10:30 | DI.RAD_ITS ---
Exam(s) XR FOOT RT COMPLETE EXAM: XR FOOT RT COMPLETE CLINICAL HISTORY: mid foot pain, weighted too view please. TECHNIQUE: 2D digital imaging was performed of the right foot. Three images were obtained. AP, oblique and lateral views were obtained. COMPARISON: No exams were available for comparison FINDINGS: BONES: No acute fracture is present. No bony destructive lesion is seen. JOINTS: No dislocation present. There is a hallux valgus deformity. The joint spaces are otherwise well maintained. SOFT TISSUE: Normal. IMPRESSION: No acute fracture or dislocation. DATA REPOSITORY: RADIATION DOSE DELIVERED:
--- NOTE | 2025-01-31 10:37 | W.ED.GENAD ---
Discharge Plan Disposition Patient Disposition: Home Condition: Good Discharge Details Clinical Impression: Acute pain of right foot, Muscle spasm Primary Care Provider: Lisa Siegel ED Provider: Mercedes Moran Home Meds and New Rx's Prescriptions: Continued omeprazole 20 mg capsule,delayed release(DR/EC) 20 mg PO DAILY Patient Comments: TAKE 1 CAPSULE BY MOUTH EVERY DAY escitalopram oxalate 5 mg tablet 10 mg PO DAILY amlodipine 5 mg tablet 5 mg PO DAILY Patient Comments: TAKE 1 TABLET BY MOUTH EVERY DAY cholecalciferol (vitamin D3) [D3-2000] 50 mcg (2,000 unit) capsule 50 mcg PO DAILY Patient Comments: pt reports I dont take anymore Discharge Instructions Instructions: Muscle Spasms (DC) Additional Instructions: As we discussed, your imaging is reassuring. No evidence to suggest fracture, dislocation or instability. Exam is also not consistent with vascular issue or gout. I am more concerned that this may be associated with muscle spasm. This may be associated with sprain or strain to the foot. Please encourage rest, ice, elevation. Please continue with the Gianni wrap to help support the foot and give some compression to help reduce swelling while pain persist. Tylenol and/or ibuprofen as needed for discomfort. Please take as directed on the packaging. If you develop any new or worsening symptoms please see care urgently once again. Otherwise, please follow-up with primary care in 1 to 2 weeks if your symptoms have not fully resolved. Referrals: Lisa Siegel [Primary Care Provider, Medicine] Discharge Data Discharge Date/Time-TO BE ENTERED AT DEPARTURE: 01/31/25 11:49 HPI General Date/Time Provider Initiated Documentation: 01/31/25 10:05. Limitations to Documentation: no limitations. Information obtained by: patient, family () and RN notes reviewed. History of Present Illness 59 year old F presents to the emergency department with the chief complaint of right foot pain, described as moderate, Quality is described as aching and constant, and is localized to the right and lower extremity. Patient reports no radiation. Patient started experiencing this day(s) (1) and it has been constant. Immobilization improves symptom(s), Movement worsens symptoms . Patient notes no other symptoms.. Patient did receive the following treatments prior to arrival, none Related Data Home Medications ?Medication ?Instructions ?Recorded ?Confirmed amlodipine 5 mg tablet 5 mg PO DAILY 01/07/24 01/31/25 cholecalciferol (vitamin D3) 50 50 mcg PO DAILY 01/07/24 01/31/25 mcg (2,000 unit) capsule (D3-1999) escitalopram oxalate 5 mg tablet 10 mg PO DAILY 01/07/24 01/31/25 omeprazole 20 mg capsule,delayed 20 mg PO DAILY 01/07/24 01/31/25 release Allergies Allergy/AdvReac Type Severity Reaction Status Date / Time Penicillins Allergy Anaphylaxsi Unverified 01/31/25 10:17 s sulfamethoxazole (From Allergy Anaphylaxis Verified 01/31/25 10:17 Bactrim) trimethoprim (From Bactrim) Allergy Anaphylaxsi Verified 01/31/25 10:17 s General Stated Complaint: Orthopedic ITALIA: 4 Review of Systems Constitutional Constitutional: Reports as per HPI, Denies chills, Denies fever(s) and Denies weakness Cardiovascular Cardiovascular: Reports as per HPI Respiratory Respiratory: Reports as per HPI and Denies cough Musculoskeletal Musculoskeletal: Reports as per HPI and Denies tingling Integumentary/Breasts Skin/Breast: Reports as per HPI, Denies rash and Denies wounds Neurologic Neurologic: Reports as per HPI, Denies tingling, Denies paresthesias and Denies weakness Exam Const General: cooperative, healthy appearing, comfortable, no acute distress, well developed and well groomed Nutritional Appearance: average body habitus and well nourished Orientation: alert and awake Resp Effort & Inspection: normal respiratory effort, able to speak in complete sentences and no respiratory distress Cardio Rate: regular rate Rhythm: regular rhythm Skin General skin exam: no rashes or lesions noted Lesions: no lesions Rashes: no rashes Trauma: no lacerations or abrasions Neuro General: patient alert and patient awake Cognition: normal cognition Speech: speech normal Gait: antalgic Motor: muscle tone normal throughout Sensory Exam: no sensory deficits noted Extrem Ankle/foot/toe images:  1. Area of discomfort. Small amount of swelling over this area. No discoloration No sensory deficits in this region or distal to it. 2+ distal pulses, intact capillary refill. No swelling or evidence of trauma along the plantar surface. No visible or palpable deformity. No pain in the ankle although dorsiflexion at the ankle does increase discomfort at the area of maximal pain. No calcaneal pain, no pain over the plantar fascia. Course Vital Signs Vital signs: Vital Signs Temperature 36.4 C L 01/31/25 10:14 Pulse 108 H 01/31/25 10:14 Respiratory Rate 20 01/31/25 10:14 Blood Pressure 163/109 H 01/31/25 10:14 Pulse Oximetry 98 01/31/25 10:14 Temperature 36.4 C L 01/31/25 10:14 Pulse 108 H 01/31/25 10:14 Respiratory Rate 20 01/31/25 10:14 Blood Pressure 163/109 H 01/31/25 10:14 Blood Pressure Position Sitting 01/31/25 10:14 Pulse Oximetry 98 01/31/25 10:14 Oxygen Delivery Method Room Air 01/31/25 10:14 Oxygen Flow Rate 0 01/31/25 10:14 Medical Decision Making Patient is a plesant 59 year old female, accompanied by her , with c/c of right foot pain that began last night. States she woke to use the rest room, noted right calf muscle spasm and right foot pain. The spasm has relieved. She reports that she has had spasms like this historically, tyipcally associated with dehydration. States she did have decreased fluid intake yesterday. No trauma. No previous surgery to this foot. No continued calf pain. No travel, estrogen use or hx of DVT. No discoloration reported. On exam, patient appears nontoxic. She has midfoot pain, maximal along the dorsal side. No plantar fascia pain. No calcaneal pain. She does have some tenderness over the 5th metatarsal but more so along the midfoot. No neurovascular deficits. Able to move her toes and ankle. No calf pain, negative Hommans sign. With the midfoot pain, will obtain weight xray to evaluate for any instability or evidence of Lis Franc injury. With the sudden onset and pain more at the dorsal side, unlikely ot be plantar fasciitis. No evidence to suggest gout, DVT, vascular deficit. XR without acute abnormality, reviewed by myself and the radiologist. After APAP and NSAID, patient feeling significantly improved. We discussed supportive care, including bracing. She declines brace, reports she has one at home but we will apply GIANNI wrap to help with discomfort. Encouraged RICE. Return preacutions discussed. Advised f/u with PCP. all of her questions and concerns were addressed, she is in agreement with this plan. PFSH All Active Problems (Updated 01/28/24 @ 11:04 by Manjinder Mg MD) Muscle spasm (Acute) Acute pain of right foot (Acute) SLAP lesion of right shoulder (Acute) Chondromalacia, right shoulder (Acute) Left elbow pain (Acute) Peroneal tendonitis of left lower leg (Acute) Likely peroneal brevis History of left lateral epicondylitis (Acute) left 2018 Ulnar neuropathy at elbow of left upper extremity (Acute 04/18/19) S/p left cubital tunnel decompression Left lateral epicondylitis (Acute) Left lateral epicondylitis debridement DOS: 05/05/18 Dr. Chacon Medical History (Updated 01/31/25 @ 11:35 by VIRGINIA Chacko) Head ache Low back pain GERD (gastroesophageal reflux disease) Transient cerebral ischemia 2015-pt. 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) Essential hypertension Hyperlipemia Obstruction of right fallopian tube Surgical History (Updated 01/28/24 @ 11:04 by Manjinder Mg MD) Status post breast reduction History of decompression of ulnar nerve History of bilateral fallopian tube excision History of bunionectomy of left great toe H/O arthroscopy of knee Right knee 2016 Left knee 1997 Social History Smoking/Tobacco Use Status: Former Tobacco Use Quit Date: 09/10/08 Smoking risk assessment performed?: Yes Alcohol Intake: current Alcohol Intake frequency: 0-2 drinks per day Alcohol type: beer Drug use: Never Substance use type: does not use Housing: house Current gender identity: female Do you feel safe in your relationship?: Yes Additional Social history: [employer] PAWSS Have you Been Recently Intoxicated or Drunk Within the Last 30 days?: No Have you Ever Experienced Previous Episodes of Alcohol Withdrawal?: No Have you ever Experienced Withdrawal Seizures?: No Have you ever Experienced Delirium Tremens(DT)s?: No Have you ever undergone Alcohol Rehabilitation Treatment (i.e, inpt ot outpatient treatment programs)?: No Have you ever Experienced Blackouts?: No Have you ever Combined Alcohol with other Downers within the last 90 days?: No Have you ever Combined Alcohol with any other Substance of Abuse during the last 90 days?: No Positive Blood Alcohol level on Presentation? [PCS.BAL]: No Evidence of Increased Autonomic Activity (i.e. HR>120, tremor, sweating, agitation, nausea)?: No Result: 0
[2025-01-31] MEDS: Acetaminophen 325 MG TAB 650 MG PO (10:43)
[2025-01-31] MEDS: Ibuprofen 600 MG TAB PO (10:43)
[2025-01-31 11:48] VITALS: BP 161/98; PULSE 68; RESP 12; O2SAT 98
== END 2025-01-31 11:49 | disposition home or self-care (01) ==
PROVIDERS: Emergency Provider Physician Assistant; PCP Nurse Practitioner Family
DX: M79.671 Pain in right foot (principal); I10 Essential (primary) hypertension; E78.5 Hyperlipidemia, unspecified; Z87.891 Personal history of nicotine dependence
CPT/HCPCS: 99283; 73630